=== PATIENT | female | born 1955 | race African-American/Black ===

== ENCOUNTER 2016-10-18 09:25 | Emergency (ER) | payer OTHER ==
[~2016-10-18] VITALS: Ht 157.5 cm; Wt 65.0 kg
[~2016-10-18 09:25] MED LIST: AMLODIPINE5 MG PO; ASPIRIN EC81 MG PO; CIPROFLOXACN500 MG PO; CLONIDINE0.1 MG PO; GLYNASE6 MG PO; HYDROCHLORO25 MG/TAB PO; LORTAB 10-325 M1 TAB PO; MAXZIDE-25MG1 COMBO PO; METFORMIN500 MG PO; METRONIDAZOL500 MG PO; NAPROSYN500 MG PO; NORCO1 TA1 PO; TOPROL XL100 MG PO; ULTRAM50 M1 PO; ZESTRIL/PRI20 MG/TAB PO; ZOFRAN ODT4 MG PO
[2016-10-18] MEDS ORDERED: PERCOCET 5/325M1 TAB PO (10:12)
[2016-10-18] MEDS ORDERED: INDOMETHACIN75 MG PO (10:12)
[2016-10-18] MEDS ORDERED: MITIGARE0.6 MG PO (10:12)
[2016-10-18 10:45] LABS: HEMATOCRIT 39.9 % (37.0-47.0); HEMOGLOBIN 14.6 g/dl (12.0-16.0); IMMATURE GRANULOCYTES 0.3 % (0.0-1.0); MEAN CELL VOLUME 81.9 fL CALC (80.0-100.0); MEAN CORPUSCULAR HGB CONC 36.6 g/L CALC (32.0-36.0); NEUT# 3.83 thou/uL (2.00-7.15); RED BLOOD COUNT 4.87 mill/uL (4.20-5.60); RED CELL DISTRI WIDTH 13.2 % (11.5-15.5)
[2016-10-18 10:48] LABS: ALBUMIN 4.4 g/dL (3.2-5.0); BILIRUBIN, TOTAL 0.6 mg/dL (0.0-1.4); CALCIUM 10.1 mg/dL (8.4-10.2); CREATININE 1.3 mg/dL (0.5-1.0); POTASSIUM 4.6 mmol/l (3.5-5.1)
[2016-10-18 12:04] VITALS: BP 105/57
== END 2016-10-18 12:25 | disposition home or self-care (01) | DRG 305 ==
LOC: ED 09:25
PROVIDERS: Emergency Medicine
DX: I10 Essential (primary) hypertension (principal); M10.072 Idiopathic gout, left ankle and foot; Z91.14 Patient's other noncompliance with medication regimen; R94.31 Abnormal electrocardiogram [ECG] [EKG]

== ENCOUNTER 2017-03-09 23:28 | Inpatient (IN) | payer OTHER ==
[~2017-03-09] VITALS: Ht 157.5 cm; Wt 70.0 kg
[~2017-03-09 23:28] MED LIST changes: +INDOMETHACIN75 MG PO; +MITIGARE0.6 MG PO; +PERCOCET 5/325M1 TAB PO
[2017-03-09 23:54] LABS: HEMATOCRIT 44.2 % (37.0-47.0); HEMOGLOBIN 15.8 g/dl (12.0-16.0); IMMATURE GRANULOCYTES 0.5 % (0.0-1.0); MEAN CELL VOLUME 82.2 fL CALC (80.0-100.0); MEAN CORPUSCULAR HGB 29.4 pG CALC (26.0-32.0); MEAN CORPUSCULAR HGB CONC 35.7 g/L CALC (32.0-36.0); NEUT# 11.01 thou/uL (2.00-7.15); RED BLOOD COUNT 5.38 mill/uL (4.20-5.60); RED CELL DISTRI WIDTH 14.3 % (11.5-15.5)
[2017-03-10] VITALS (26 sets, daily range): BP systolic 107–233; BP diastolic 64–130
[2017-03-10 00:24] LABS: URINE BILIRUBIN - DIPSTICK NEGATIVE (NEGATIVE); URINE BLOOD DIPSTICK SMALL (NEGATIVE); URINE CLARITY CLOUDY; URINE COLOR YELLOW; URINE GLUCOSE - DIPSTICK 100 mg/dL (NEGATIVE); URINE KETONE NEGATIVE (NEGATIVE); URINE LEUK ESTERASE NEGATIVE (NEGATIVE); URINE NITRITE - DIPSTICK NEGATIVE (Negative); URINE PH 6.5 (4.5-8.0); URINE PROTEIN - DIPSTICK >=300 mg/dL (NEG-TRACE); URINE SPECIFIC GRAVITY 1.025; URINE UROBILINOGEN - DIPSTICK 0.2 E.U./dL (0.2)
[2017-03-10 00:30] LABS: BARBITURATES NEGATIVE (NEGATIVE); COCAINE POSITIVE (NEGATIVE); METHADONE NEGATIVE (NEGATIVE); OXCYCODONE NEGATIVE (NEGATIVE); TETRAHYDROCANNABIONOL POSITIVE (NEGATIVE); TRICYLIC ANTIDEPRESSANTS NEGATIVE (NEGATIVE)
[2017-03-10 00:33] LABS: URINE BACTERIA FEW hpf; URINE COARSE GRANULAR CAST FEW lpf; URINE FINE GRAN CAST FEW lpf; URINE MUCUS FEW hpf (NONE-FEW); URINE SQUAMOUS EPITHELIAL CELL MODERATE EPI/hpf (0-FEW)
[2017-03-10 00:37] LABS: BILIRUBIN, TOTAL 0.8 mg/dL (0.0-1.4); CALCIUM 8.8 mg/dL (8.4-10.2); CREATININE 1.2 mg/dL (0.5-1.0); POTASSIUM 3.7 mmol/l (3.5-5.1); TOTAL PROTEIN 8.4 g/dL (6.3-8.2)
[2017-03-10 01:16] LABS: PROTHROMBIN TIME 10.7 SECONDS (9.0-12.5)
[2017-03-10 01:28] LABS: MAGNESIUM 1.9 mg/dL (1.6-2.3)
[2017-03-10 02:14] LABS: TSH, 3RD GENERATION 2.35 uIU/mL (0.47 - 4.68)
[2017-03-10 08:31] LABS: HEMATOCRIT 31.9 % (37.0-47.0); HEMOGLOBIN 11.6 g/dl (12.0-16.0); IMMATURE GRANULOCYTES 0.3 % (0.0-1.0); MEAN CELL VOLUME 80.2 fL CALC (80.0-100.0); MEAN CORPUSCULAR HGB 29.1 pG CALC (26.0-32.0); MEAN CORPUSCULAR HGB CONC 36.4 g/L CALC (32.0-36.0); NEUT# 10.32 thou/uL (2.00-7.15); RED BLOOD COUNT 3.98 mill/uL (4.20-5.60); RED CELL DISTRI WIDTH 13.4 % (11.5-15.5)
[2017-03-10 08:39] LABS: CALCIUM 8.4 mg/dL (8.4-10.2); CREATININE 1.4 mg/dL (0.5-1.0); POTASSIUM 3.8 mmol/l (3.5-5.1)
[2017-03-11] VITALS (42 sets, daily range): BP systolic 116–211; BP diastolic 61–112
[2017-03-11 05:50] LABS: HEMATOCRIT 32.2 % (37.0-47.0); HEMOGLOBIN 11.9 g/dl (12.0-16.0); IMMATURE GRANULOCYTES 0.3 % (0.0-1.0); MEAN CELL VOLUME 80.7 fL CALC (80.0-100.0); MEAN CORPUSCULAR HGB 29.8 pG CALC (26.0-32.0); NEUT# 8.78 thou/uL (2.00-7.15); RED BLOOD COUNT 3.99 mill/uL (4.20-5.60); RED CELL DISTRI WIDTH 13.7 % (11.5-15.5)
[2017-03-11 06:05] LABS: ALBUMIN 3.4 g/dL (3.2-5.0); BILIRUBIN, TOTAL 0.7 mg/dL (0.0-1.4); CALCIUM 9.1 mg/dL (8.4-10.2); POTASSIUM 3.8 mmol/l (3.5-5.1)
[2017-03-11 14:24] LABS: CALCIUM 8.8 mg/dL (8.4-10.2); CREATININE 1.8 mg/dL (0.5-1.0)
[2017-03-11 21:49] LABS: HEMATOCRIT 28.2 % (37.0-47.0); HEMOGLOBIN 10.2 g/dl (12.0-16.0); IMMATURE GRANULOCYTES 0.4 % (0.0-1.0); MEAN CELL VOLUME 81.7 fL CALC (80.0-100.0); MEAN CORPUSCULAR HGB 29.6 pG CALC (26.0-32.0); MEAN CORPUSCULAR HGB CONC 36.2 g/L CALC (32.0-36.0); NEUT# 5.97 thou/uL (2.00-7.15); RED BLOOD COUNT 3.45 mill/uL (4.20-5.60)
[2017-03-11 22:07] LABS: CALCIUM 8.6 mg/dL (8.4-10.2); CREATININE 1.7 mg/dL (0.5-1.0); POTASSIUM 3.6 mmol/l (3.5-5.1)
[2017-03-12] VITALS (77 sets, daily range): BP systolic 105–192; BP diastolic 7–94
[2017-03-12 06:39] LABS: HEMATOCRIT 27.7 % (37.0-47.0); IMMATURE GRANULOCYTES 0.4 % (0.0-1.0); MEAN CELL VOLUME 81.5 fL CALC (80.0-100.0); MEAN CORPUSCULAR HGB 29.4 pG CALC (26.0-32.0); MEAN CORPUSCULAR HGB CONC 36.1 g/L CALC (32.0-36.0); NEUT# 4.86 thou/uL (2.00-7.15); RED BLOOD COUNT 3.4 mill/uL (4.20-5.60); RED CELL DISTRI WIDTH 14.1 % (11.5-15.5)
[2017-03-12 06:51] LABS: CALCIUM 8.6 mg/dL (8.4-10.2); CREATININE 1.7 mg/dL (0.5-1.0); POTASSIUM 3.5 mmol/l (3.5-5.1)
[2017-03-13] VITALS (25 sets, daily range): BP systolic 88–198; BP diastolic 42–94
[2017-03-13 08:07] LABS: HEMATOCRIT 26.6 % (37.0-47.0); HEMOGLOBIN 9.8 g/dl (12.0-16.0); IMMATURE GRANULOCYTES 0.5 % (0.0-1.0); MEAN CELL VOLUME 80.6 fL CALC (80.0-100.0); MEAN CORPUSCULAR HGB 29.7 pG CALC (26.0-32.0); MEAN CORPUSCULAR HGB CONC 36.8 g/L CALC (32.0-36.0); NEUT# 5.85 thou/uL (2.00-7.15); RED BLOOD COUNT 3.3 mill/uL (4.20-5.60)
[2017-03-13 08:08] LABS: CALCIUM 8.7 mg/dL (8.4-10.2); CREATININE 1.6 mg/dL (0.5-1.0); MAGNESIUM 1.7 mg/dL (1.6-2.3); POTASSIUM 3.3 mmol/l (3.5-5.1)
[2017-03-13 22:59] LABS: C. DIFFICILE TOXIN A&B NEGATIVE (NEGATIVE)
[2017-03-14] VITALS (7 sets, daily range): BP systolic 143–208; BP diastolic 69–97
[2017-03-14 05:23] LABS: HEMATOCRIT 27.7 % (37.0-47.0); HEMOGLOBIN 9.9 g/dl (12.0-16.0); IMMATURE GRANULOCYTES 0.6 % (0.0-1.0); MEAN CORPUSCULAR HGB 28.9 pG CALC (26.0-32.0); MEAN CORPUSCULAR HGB CONC 35.7 g/L CALC (32.0-36.0); NEUT# 5.12 thou/uL (2.00-7.15); RED BLOOD COUNT 3.42 mill/uL (4.20-5.60); RED CELL DISTRI WIDTH 13.9 % (11.5-15.5)
[2017-03-14 05:44] LABS: CALCIUM 9.1 mg/dL (8.4-10.2); CREATININE 1.5 mg/dL (0.5-1.0); POTASSIUM 3.7 mmol/l (3.5-5.1)
[2017-03-15 00:25] VITALS: BP 189/90
[2017-03-15 00:43] VITALS: BP 157/82
[2017-03-15 05:24] LABS: HEMOGLOBIN 10.3 g/dl (12.0-16.0); IMMATURE GRANULOCYTES 0.8 % (0.0-1.0); MEAN CELL VOLUME 80.5 fL CALC (80.0-100.0); MEAN CORPUSCULAR HGB 29.6 pG CALC (26.0-32.0); MEAN CORPUSCULAR HGB CONC 36.8 g/L CALC (32.0-36.0); NEUT# 4.49 thou/uL (2.00-7.15); RED BLOOD COUNT 3.48 mill/uL (4.20-5.60)
[2017-03-15 05:42] LABS: CREATININE 1.3 mg/dL (0.5-1.0); MAGNESIUM 1.8 mg/dL (1.6-2.3); POTASSIUM 3.5 mmol/l (3.5-5.1)
[2017-03-15 09:17] VITALS: BP 180/74
[2017-03-15 11:17] LABS: CHOLESTEROL HDL RATIO 3.1 (<4.4 (CALC))
[2017-03-15 11:30] VITALS: BP 199/94
[2017-03-15 11:55] LABS: URINE BLOOD DIPSTICK LARGE (NEGATIVE); URINE GLUCOSE - DIPSTICK NEGATIVE (NEGATIVE); URINE KETONE TRACE mg/dL (NEGATIVE); URINE LEUK ESTERASE TRACE (NEGATIVE); URINE PROTEIN - DIPSTICK 100 mg/dL (NEG-TRACE); URINE SPECIFIC GRAVITY 1.025
[2017-03-15 12:02] LABS: URINE BILIRUBIN - DIPSTICK MODERATE (NEGATIVE); URINE CLARITY CLOUDY; URINE COLOR RED; URINE NITRITE - DIPSTICK POSITIVE (Negative)
[2017-03-15 12:04] LABS: URINE BACTERIA FEW hpf; URINE RBC TNTC RBC/hpf (0-5)
[2017-03-15 15:00] VITALS: BP 189/89
[2017-03-15 19:05] VITALS: BP 157/82
[2017-03-16] VITALS (7 sets, daily range): BP systolic 163–226; BP diastolic 82–99
[2017-03-16 07:07] LABS: HEMATOCRIT 27.3 % (37.0-47.0); HEMOGLOBIN 10.1 g/dl (12.0-16.0); IMMATURE GRANULOCYTES 0.7 % (0.0-1.0); MEAN CELL VOLUME 79.6 fL CALC (80.0-100.0); MEAN CORPUSCULAR HGB 29.4 pG CALC (26.0-32.0); NEUT# 4.67 thou/uL (2.00-7.15); RED BLOOD COUNT 3.43 mill/uL (4.20-5.60); RED CELL DISTRI WIDTH 13.9 % (11.5-15.5)
[2017-03-16 07:29] LABS: ANION GAP 17 (6-22 (CALC)); BUN 15 mg/dL (7-17); BUN/CREATININE RATIO 13 (12-20 (CALC)); CALCIUM 9.1 mg/dL (8.4-10.2); CARBON DIOXIDE 17 mmol/l (22-30); CHLORIDE 113 mmol/l (95-108); CREATININE 1.1 mg/dL (0.5-1.0); GFR 51 ML/MIN (>=60 (CALC)); GFR FOR AFR.AMER. > 60 ML/MIN (>=60 (CALC)); GLUCOSE 82 mg/dL (65-105); MAGNESIUM 1.7 mg/dL (1.6-2.3); POTASSIUM 3.7 mmol/l (3.5-5.1); SODIUM 143 mmol/l (137-146)
[2017-03-16] MEDS ORDERED: CLONIDINE0.1 MG PO (12:39)
[2017-03-16] MEDS ORDERED: LOPRESSOR 550 MG/TAB PO (12:39)
[2017-03-16] MEDS ORDERED: IPRATROPIU0.5 MG/3 M IN (12:39)
[2017-03-16] MEDS ORDERED: LISINOPRIL40 MG PO (12:39)
[2017-03-16] MEDS ORDERED: ASPIRINCHW 81MG PO (12:39)
[2017-03-16] MEDS ORDERED: LEVAQUIN750 MG PO (12:39)
[2017-03-16] MEDS ORDERED: AMLODIPINE BESYL5 MG PO (12:39)
[2017-03-16] MEDS ORDERED: ZYLOPRIM100 MG PO (12:41)
[2017-03-16] MEDS ORDERED: METFORMIN500 MG PO (12:41)
== END 2017-03-16 18:12 | disposition home or self-care (01) | DRG 208 ==
LOC: ED 23:29 → ED-I 23:30 → ED 23:30 → ED-I 03-10 00:30 → ED 03-10 01:02 → ICU 03-10 01:03 → MS2 03-10 01:03
PROVIDERS: Emergency Medicine; Nurse Practitioner Family; ADMIT Internal Medicine; ATTEND Internal Medicine
PROC: 0BH17EZ Insertion of Endotracheal Airway into Trachea, Via Natural or Artificial Opening (ICD-10-PCS; principal; 2017-03-10)
PROC: 5A1945Z Respiratory Ventilation, 24-96 Consecutive Hours (ICD-10-PCS; 2017-03-10)
PROC: 0T9B70Z Drainage of Bladder with Drainage Device, Via Natural or Artificial Opening (ICD-10-PCS; 2017-03-10)
DX: J18.9 Pneumonia, unspecified organism (principal); J96.01 Acute respiratory failure with hypoxia; N17.9 Acute kidney failure, unspecified; F10.188 Alcohol abuse with other alcohol-induced disorder; I16.0 Hypertensive urgency; I13.10 Hypertensive heart and chronic kidney disease without heart failure, with stage 1 through stage 4 chronic kidney disease, or unspecified chronic kidney disease; E11.22 Type 2 diabetes mellitus with diabetic chronic kidney disease; N18.3 Chronic kidney disease, stage 3 (moderate); I27.2 Other secondary pulmonary hypertension; F17.210 Nicotine dependence, cigarettes, uncomplicated; B19.20 Unspecified viral hepatitis C without hepatic coma; M10.9 Gout, unspecified; R74.8 Abnormal levels of other serum enzymes; F14.188 Cocaine abuse with other cocaine-induced disorder; F12.188 Cannabis abuse with other cannabis-induced disorder; Z91.19 Patient's noncompliance with other medical treatment and regimen; Z86.73 Personal history of transient ischemic attack (TIA), and cerebral infarction without residual deficits; Z79.4 Long term (current) use of insulin
CPT/HCPCS: J2060; J3370; S0164

== ENCOUNTER 2017-04-25 11:46 | Emergency (ER) | payer OTHER ==
[~2017-04-25] VITALS: Ht 157.5 cm; Wt 65.0 kg
[~2017-04-25 11:46] MED LIST changes: +AMLODIPINE BESYL5 MG PO; +ASPIRINCHW 81MG PO; +IPRATROPIU0.5 MG/3 M IN; +LEVAQUIN750 MG PO; +LISINOPRIL40 MG PO; +LOPRESSOR 550 MG/TAB PO; +ZYLOPRIM100 MG PO
[2017-04-25 12:58] LABS: ALBUMIN 4.9 g/dL (3.2-5.0); BILIRUBIN, TOTAL 0.7 mg/dL (0.0-1.4); CALCIUM 10.2 mg/dL (8.4-10.2); CREATININE 1.5 mg/dL (0.5-1.0); POTASSIUM 4.8 mmol/l (3.5-5.1); TOTAL PROTEIN 8.9 g/dL (6.3-8.2)
[2017-04-25] MEDS ORDERED: TORADOL PO (13:59)
[2017-04-25] MEDS ORDERED: RAYOS1 MG PO (13:59)
[2017-04-25 14:07] VITALS: BP 160/106
== END 2017-04-25 14:15 | disposition home or self-care (01) | DRG 556 ==
LOC: ED 11:46
PROVIDERS: Emergency Medicine
DX: M25.572 Pain in left ankle and joints of left foot (principal); M77.32 Calcaneal spur, left foot; M20.12 Hallux valgus (acquired), left foot; R22.42 Localized swelling, mass and lump, left lower limb

== ENCOUNTER 2017-10-04 14:37 | Emergency (ER) | payer OTHER ==
[~2017-10-04] VITALS: Ht 157.5 cm; Wt 63.6 kg
[~2017-10-04 14:37] MED LIST changes: +RAYOS1 MG PO; +TORADOL PO
[2017-10-04 15:41] LABS: IMMATURE GRANULOCYTES 0.2 % (0.0-1.0); MEAN CELL VOLUME 82.2 fL CALC (80.0-100.0); MEAN CORPUSCULAR HGB 29.7 pG CALC (26.0-32.0); MEAN CORPUSCULAR HGB CONC 36.1 g/L CALC (32.0-36.0); NEUT# 3.68 thou/uL (2.00-7.15); RED BLOOD COUNT 4.72 mill/uL (4.20-5.60); RED CELL DISTRI WIDTH 14.1 % (11.5-15.5)
[2017-10-04 15:48] LABS: HEMATOCRIT 38.8 % (37.0-47.0)
[2017-10-04 15:58] VITALS: BP 222/89
[2017-10-04 16:02] LABS: ALBUMIN 4.4 g/dL (3.2-5.0); BILIRUBIN, TOTAL 0.4 mg/dL (0.0-1.4); CREATININE 1.9 mg/dL (0.5-1.0); TOTAL PROTEIN 9.1 g/dL (6.3-8.2)
[2017-10-04 16:05] LABS: POTASSIUM 3.5 mmol/l (3.5-5.1)
[2017-10-04 16:06] LABS: D-DIMER 1.1 mg/L (0.19-0.60); PROTHROMBIN TIME 11.1 SECONDS (9.0-12.5)
== END 2017-10-04 16:06 | disposition short-term general hospital (02) | DRG 311 ==
LOC: ED 14:37
PROVIDERS: Family Medicine
DX: I20.0 Unstable angina (principal); F17.210 Nicotine dependence, cigarettes, uncomplicated; I10 Essential (primary) hypertension; R06.02 Shortness of breath; R11.0 Nausea; R07.9 Chest pain, unspecified

== ENCOUNTER 2017-10-11 08:02 | Emergency (ER) | payer OTHER ==
[~2017-10-11] VITALS: Ht 157.5 cm; Wt 70.0 kg
[2017-10-11 08:39] LABS: HEMATOCRIT 34.6 % (37.0-47.0); HEMOGLOBIN 12.3 g/dl (12.0-16.0); IMMATURE GRANULOCYTES 0.4 % (0.0-1.0); MEAN CORPUSCULAR HGB 28.8 pG CALC (26.0-32.0); MEAN CORPUSCULAR HGB CONC 35.5 g/L CALC (32.0-36.0); NEUT# 6.55 thou/uL (2.00-7.15); RED BLOOD COUNT 4.27 mill/uL (4.20-5.60); RED CELL DISTRI WIDTH 13.4 % (11.5-15.5)
[2017-10-11 08:57] LABS: ALBUMIN 3.9 g/dL (3.2-5.0); BILIRUBIN, TOTAL 0.4 mg/dL (0.0-1.4); CREATININE 2.3 mg/dL (0.5-1.0); POTASSIUM 4.4 mmol/l (3.5-5.1); TOTAL PROTEIN 8.2 g/dL (6.3-8.2)
[2017-10-11] MEDS ORDERED: NIFEDIPINE PO (09:43)
[2017-10-11] MEDS ORDERED: ISOSORB MONO30 MG PO (09:43)
[2017-10-11] MEDS ORDERED: ATORVASTATIN CA40 MG PO (09:44)
[2017-10-11] MEDS ORDERED: APRESOLINE25 MG/TAB PO (09:44)
[2017-10-11] MEDS ORDERED: PROTONIX40 M2 PO (09:45)
[2017-10-11] MEDS ORDERED: BRILINTA90 MG PO (09:45)
[2017-10-11] MEDS ORDERED: GLYBURID MCR6 MG PO (09:46)
[2017-10-11] MEDS ORDERED: METFORMIN500 MG PO (09:46)
[2017-10-11] MEDS ORDERED: METFORMIN HCL1000 MG PO (09:47)
[2017-10-11] MEDS ORDERED: CATAPRES0.2 MG PO (10:01)
[2017-10-11 11:15] VITALS: BP 195/86
== END 2017-10-11 11:15 | disposition home or self-care (01) | DRG 305 ==
LOC: ED 08:02
PROVIDERS: Family Medicine
DX: I10 Essential (primary) hypertension (principal); E11.9 Type 2 diabetes mellitus without complications; R04.0 Epistaxis; M10.9 Gout, unspecified; Z95.5 Presence of coronary angioplasty implant and graft

== ENCOUNTER 2017-10-19 18:39 | Emergency (ER) | payer OTHER ==
[~2017-10-19] VITALS: Ht 157.5 cm; Wt 60.9 kg
[~2017-10-19 18:39] MED LIST changes: +APRESOLINE25 MG/TAB PO; +ATORVASTATIN CA40 MG PO; +BRILINTA90 MG PO; +CATAPRES0.2 MG PO; +GLYBURID MCR6 MG PO; +ISOSORB MONO30 MG PO; +METFORMIN HCL1000 MG PO; +NIFEDIPINE PO; +PROTONIX40 M2 PO
[2017-10-19 19:28] LABS: IMMATURE GRANULOCYTES 0.7 % (0.0-1.0); MEAN CELL VOLUME 80.5 fL CALC (80.0-100.0); MEAN CORPUSCULAR HGB 29.1 pG CALC (26.0-32.0); MEAN CORPUSCULAR HGB CONC 36.1 g/L CALC (32.0-36.0); NEUT# 4.26 thou/uL (2.00-7.15); RED BLOOD COUNT 3.44 mill/uL (4.20-5.60); RED CELL DISTRI WIDTH 13.8 % (11.5-15.5)
[2017-10-19 19:36] LABS: HEMATOCRIT 27.7 % (37.0-47.0)
[2017-10-19 19:41] LABS: ALBUMIN 3.6 g/dL (3.2-5.0); BILIRUBIN, TOTAL 0.3 mg/dL (0.0-1.4); CREATININE 2.4 mg/dL (0.5-1.0); POTASSIUM 4.8 mmol/l (3.5-5.1); TOTAL PROTEIN 7.8 g/dL (6.3-8.2)
[2017-10-19 19:42] LABS: PROTHROMBIN TIME 11.4 SECONDS (9.0-12.5)
[2017-10-19 19:55] VITALS: BP 195/91
== END 2017-10-19 20:00 | disposition short-term general hospital (02) | DRG 301 ==
LOC: ED 18:39
PROVIDERS: Emergency Medicine
DX: I77.1 Stricture of artery (principal); I10 Essential (primary) hypertension; E11.9 Type 2 diabetes mellitus without complications; M10.9 Gout, unspecified

== ENCOUNTER 2017-11-04 10:02 | Emergency (ER) | payer OTHER ==
[~2017-11-04] VITALS: Ht 157.5 cm; Wt 68.2 kg
[2017-11-04 12:45] VITALS: BP 144/71
== END 2017-11-04 13:06 | disposition home or self-care (01) | DRG 556 ==
LOC: ED 10:02
DX: M79.605 Pain in left leg (principal); Z86.718 Personal history of other venous thrombosis and embolism; W17.89XA Other fall from one level to another, initial encounter; Y93.89 Activity, other specified; Y92.003 Bedroom of unspecified non-institutional (private) residence as the place of occurrence of the external cause

== ENCOUNTER 2017-12-21 21:01 | Emergency (ER) | payer OTHER ==
[~2017-12-21] VITALS: Ht 157.5 cm; Wt 70.0 kg
[2017-12-21] MEDS ORDERED: COREG25 MG PO (22:38)
[2017-12-21 22:51] LABS: IMMATURE GRANULOCYTES 0.5 % (0.0-1.0); MEAN CORPUSCULAR HGB 30.6 pG CALC (26.0-32.0); MEAN CORPUSCULAR HGB CONC 34.5 g/L CALC (32.0-36.0); NEUT# 5.32 thou/uL (2.00-7.15); RED BLOOD COUNT 1.96 mill/uL (4.20-5.60); RED CELL DISTRI WIDTH 14.2 % (11.5-15.5)
[2017-12-21 22:53] LABS: HEMATOCRIT 17.4 % (37.0-47.0); MEAN CELL VOLUME 88.8 fL CALC (80.0-100.0)
[2017-12-21 23:14] LABS: ALBUMIN 3.1 g/dL (3.2-5.0); BILIRUBIN, TOTAL 0.3 mg/dL (0.0-1.4); CREATININE 1.8 mg/dL (0.5-1.0); TOTAL PROTEIN 6.6 g/dL (6.3-8.2)
[2017-12-21 23:17] LABS: POTASSIUM 3.7 mmol/l (3.5-5.1)
[2017-12-22] MEDS ORDERED: ESCITALOPRAM OX10 MG PO (00:13)
[2017-12-22] MEDS ORDERED: LASIX 20 MG TAB20 MG PO (00:14)
[2017-12-22] MEDS ORDERED: NEURONTIN100 MG PO (00:14)
[2017-12-22] MEDS ORDERED: SODIUM BICARBI650 MG PO (00:15)
[2017-12-22] MEDS ORDERED: [UNRECOGNIZED DRUG - OTHER] PO (00:16)
[2017-12-22] MEDS ORDERED: EQ STOOL SOFTE100 MG PO (00:17)
[2017-12-22] MEDS ORDERED: NITROGLYCERIN0.4 MG SL (00:19)
[2017-12-22] MEDS ORDERED: OXYCODONE5 M1 PO (00:21)
[2017-12-22 02:22] VITALS: BP 170/77
== END 2017-12-22 02:19 | disposition short-term general hospital (02) | DRG 316 ==
LOC: ED 21:01
PROVIDERS: Emergency Medicine
DX: T82.898A Other specified complication of vascular prosthetic devices, implants and grafts, initial encounter (principal); I10 Essential (primary) hypertension; E11.9 Type 2 diabetes mellitus without complications; M10.9 Gout, unspecified; Y83.1 Surgical operation with implant of artificial internal device as the cause of abnormal reaction of the patient, or of later complication, without mention of misadventure at the time of the procedure

== ENCOUNTER 2017-12-26 02:52 | Emergency (ER) | payer OTHER ==
[~2017-12-26] VITALS: Ht 157.5 cm; Wt 54.0 kg
[~2017-12-26 02:52] MED LIST changes: +COREG25 MG PO; +EQ STOOL SOFTE100 MG PO; +ESCITALOPRAM OX10 MG PO; +LASIX 20 MG TAB20 MG PO; +NEURONTIN100 MG PO; +NITROGLYCERIN0.4 MG SL; +OXYCODONE5 M1 PO; +SODIUM BICARBI650 MG PO; +[UNRECOGNIZED DRUG - OTHER] PO
[2017-12-26 03:32] LABS: IMMATURE GRANULOCYTES 0.4 % (0.0-1.0); MEAN CORPUSCULAR HGB 31.1 pG CALC (26.0-32.0); MEAN CORPUSCULAR HGB CONC 34.5 g/L CALC (32.0-36.0); NEUT# 6.96 thou/uL (2.00-7.15); RED BLOOD COUNT 1.9 mill/uL (4.20-5.60); RED CELL DISTRI WIDTH 14.2 % (11.5-15.5)
[2017-12-26 03:38] LABS: ALBUMIN 3.2 g/dL (3.2-5.0); BILIRUBIN, TOTAL 0.3 mg/dL (0.0-1.4); CREATININE 1.7 mg/dL (0.5-1.0); POTASSIUM 4.1 mmol/l (3.5-5.1); TOTAL PROTEIN 6.9 g/dL (6.3-8.2)
[2017-12-26 03:41] LABS: HEMATOCRIT 17.1 % (37.0-47.0); HEMOGLOBIN 5.9 g/dl (12.0-16.0)
[2017-12-26 03:45] LABS: PROTHROMBIN TIME 11.5 SECONDS (9.0-12.5)
[2017-12-26 04:38] VITALS: BP 160/75
[2017-12-26 04:53] VITALS: BP 164/73
[2017-12-26 05:17] VITALS: BP 173/76
[2017-12-26 05:19] VITALS: BP 173/76
== END 2017-12-26 05:30 | disposition short-term general hospital (02) | DRG 379 ==
LOC: ED 02:52
PROVIDERS: Emergency Medicine
PROC: 30233N1 Transfusion of Nonautologous Red Blood Cells into Peripheral Vein, Percutaneous Approach (ICD-10-PCS; principal; 2017-12-26)
PROC: 30233N1 Transfusion of Nonautologous Red Blood Cells into Peripheral Vein, Percutaneous Approach (ICD-10-PCS; 2017-12-26)
DX: K62.5 Hemorrhage of anus and rectum (principal); I10 Essential (primary) hypertension; E11.9 Type 2 diabetes mellitus without complications; Z86.718 Personal history of other venous thrombosis and embolism; Z95.828 Presence of other vascular implants and grafts
CPT/HCPCS: P9016; S0164

== ENCOUNTER 2018-01-16 10:32 | Emergency (ER) | payer OTHER ==
[~2018-01-16] VITALS: Ht 157.5 cm; Wt 55.0 kg
[2018-01-16 11:19] LABS: HEMATOCRIT 31.8 % (37.0-47.0); HEMOGLOBIN 10.8 g/dl (12.0-16.0); IMMATURE GRANULOCYTES 0.3 % (0.0-5.0); MEAN CELL VOLUME 87.8 fL CALC (80.0-100.0); MEAN CORPUSCULAR HGB 29.8 pG CALC (26.0-32.0); NEUT# 10.5 thou/uL (2.00-7.15); RED BLOOD COUNT 3.62 mill/uL (4.20-5.60); RED CELL DISTRI WIDTH 13.7 % (11.5-15.5)
[2018-01-16 11:27] LABS: ALBUMIN 3.6 g/dL (3.2-5.0); BILIRUBIN, TOTAL 0.8 mg/dL (0.0-1.4); CREATININE 1.3 mg/dL (0.5-1.0); POTASSIUM 4.5 mmol/l (3.5-5.1)
[2018-01-16] MEDS ORDERED: GABAPENTIN100 MG PO (11:53)
[2018-01-16] MEDS ORDERED: FUROSEMIDE20 MG PO (11:54)
[2018-01-16] MEDS ORDERED: HYDRALAZINE25 MG PO (11:54)
[2018-01-16] MEDS ORDERED: TORADOL PO (12:30)
[2018-01-16] MEDS ORDERED: LEVAQUIN750 MG PO (12:30)
[2018-01-16] MEDS ORDERED: LABETALOL200 MG PO (13:27)
[2018-01-16 13:54] VITALS: BP 169/98
== END 2018-01-16 14:20 | disposition home or self-care (01) ==
LOC: ED 10:32
PROVIDERS: Family Medicine
DX: J18.9 Pneumonia, unspecified organism (principal); R09.1 Pleurisy; R06.02 Shortness of breath

== ENCOUNTER 2018-01-24 08:31 | Emergency (ER) | payer OTHER ==
[~2018-01-24] VITALS: Ht 157.5 cm; Wt 60.0 kg
[~2018-01-24 08:31] MED LIST changes: +FUROSEMIDE20 MG PO; +GABAPENTIN100 MG PO; +HYDRALAZINE25 MG PO; +LABETALOL200 MG PO
[2018-01-24 09:13] LABS: HEMATOCRIT 26.2 % (37.0-47.0); HEMOGLOBIN 8.9 g/dl (12.0-16.0); IMMATURE GRANULOCYTES 0.4 % (0.0-5.0); MEAN CELL VOLUME 88.8 fL CALC (80.0-100.0); MEAN CORPUSCULAR HGB 30.2 pG CALC (26.0-32.0); NEUT# 5.16 thou/uL (2.00-7.15); RED BLOOD COUNT 2.95 mill/uL (4.20-5.60); RED CELL DISTRI WIDTH 14.2 % (11.5-15.5)
[2018-01-24 09:29] LABS: ALBUMIN 3.9 g/dL (3.2-5.0); BILIRUBIN, TOTAL 0.8 mg/dL (0.0-1.4); CREATININE 1.4 mg/dL (0.5-1.0); POTASSIUM 4.6 mmol/l (3.5-5.1); TOTAL PROTEIN 8.6 g/dL (6.3-8.2)
[2018-01-24 09:30] LABS: D-DIMER 1.16 mg/L (0.19-0.60); PROTHROMBIN TIME 11.4 SECONDS (9.0-12.5)
[2018-01-24] MEDS ORDERED: ASPIRIN81 MG PO (11:48)
[2018-01-24] MEDS ORDERED: NIFEDIPINE60 MG PO (11:50)
[2018-01-24] MEDS ORDERED: CERTAVITE/ANTIOXIDAN (11:51)
[2018-01-24] MEDS ORDERED: ESCITALOPRAM OX10 MG PO (11:52)
[2018-01-24] MEDS ORDERED: FUROSEMIDE20 MG PO (11:52)
[2018-01-24] MEDS ORDERED: ATORVASTATIN CA80 MG PO (11:53)
[2018-01-24 12:01] VITALS: BP 203/89
== END 2018-01-24 12:01 | disposition short-term general hospital (02) ==
LOC: ED 08:31 → ED-I 10:22 → ED 12:01
PROVIDERS: Emergency Medicine
DX: I11.0 Hypertensive heart disease with heart failure (principal); N28.9 Disorder of kidney and ureter, unspecified; R06.02 Shortness of breath; D64.9 Anemia, unspecified; J90 Pleural effusion, not elsewhere classified; E11.9 Type 2 diabetes mellitus without complications

== ENCOUNTER 2018-03-05 08:40 | Inpatient (IN) | payer OTHER ==
[2018-03-05] VITALS (23 sets, daily range): BP systolic 159–229; BP diastolic 71–148
[~2018-03-05] VITALS: Ht 162.6 cm; Wt 64.0 kg
[~2018-03-05 08:40] MED LIST changes: +ASPIRIN81 MG PO; +ATORVASTATIN CA80 MG PO; +CERTAVITE/ANTIOXIDAN; +NIFEDIPINE60 MG PO
[2018-03-05 09:41] LABS: HEMATOCRIT 23.2 % (37.0-47.0); HEMOGLOBIN 7.9 g/dl (12.0-16.0); IMMATURE GRANULOCYTES 0.3 % (0.0-5.0); MEAN CELL VOLUME 87.9 fL CALC (80.0-100.0); MEAN CORPUSCULAR HGB 29.9 pG CALC (26.0-32.0); MEAN CORPUSCULAR HGB CONC 34.1 g/L CALC (32.0-36.0); NEUT# 4.28 thou/uL (2.00-7.15); RED BLOOD COUNT 2.64 mill/uL (4.20-5.60); RED CELL DISTRI WIDTH 14.4 % (11.5-15.5)
[2018-03-05 09:58] LABS: BILIRUBIN, TOTAL 0.6 mg/dL (0.0-1.4); POTASSIUM 4.5 mmol/l (3.5-5.1); TOTAL PROTEIN 8.1 g/dL (6.3-8.2)
[2018-03-05 19:39] LABS: URINE BILIRUBIN - DIPSTICK NEGATIVE (NEGATIVE); URINE BLOOD DIPSTICK NEGATIVE (NEGATIVE); URINE COLOR YELLOW; URINE GLUCOSE - DIPSTICK NEGATIVE (NEGATIVE); URINE KETONE NEGATIVE (NEGATIVE); URINE LEUK ESTERASE NEGATIVE (NEGATIVE); URINE NITRITE - DIPSTICK NEGATIVE (Negative); URINE PROTEIN - DIPSTICK 30 mg/dL (NEG-TRACE); URINE SPECIFIC GRAVITY 1.025; URINE UROBILINOGEN - DIPSTICK 0.2 E.U./dL (0.2)
[2018-03-05 19:46] LABS: URINE CLARITY CLEAR; URINE RBC 0-2 RBC/hpf (0-5)
[2018-03-05 19:47] LABS: URINE SQUAMOUS EPITHELIAL CELL FEW EPI/hpf (0-FEW); URINE WBC 0-2 WBC/hpf (0-5)
[2018-03-06] VITALS (16 sets, daily range): BP systolic 151–188; BP diastolic 59–87
[2018-03-06 06:08] LABS: HEMATOCRIT 20.3 % (37.0-47.0); HEMOGLOBIN 7.2 g/dl (12.0-16.0); IMMATURE GRANULOCYTES 0.5 % (0.0-5.0); MEAN CELL VOLUME 83.9 fL CALC (80.0-100.0); MEAN CORPUSCULAR HGB 29.8 pG CALC (26.0-32.0); MEAN CORPUSCULAR HGB CONC 35.5 g/L CALC (32.0-36.0); NEUT# 4.54 thou/uL (2.00-7.15); RED BLOOD COUNT 2.42 mill/uL (4.20-5.60)
[2018-03-06 06:19] LABS: ALBUMIN 3.4 g/dL (3.2-5.0); BILIRUBIN, TOTAL 0.3 mg/dL (0.0-1.4); CREATININE 1.8 mg/dL (0.5-1.0); MAGNESIUM 1.7 mg/dL (1.6-2.3); POTASSIUM 4.3 mmol/l (3.5-5.1)
== END 2018-03-06 16:05 | disposition left against medical advice (07) | DRG 304 ==
LOC: ED 08:40 → ED-I 11:21 → ED 12:19 → ICU 12:20
PROVIDERS: Emergency Medicine; ADMIT Internal Medicine Nephrology; ATTEND Internal Medicine Nephrology
DX: I16.1 Hypertensive emergency (principal); J18.9 Pneumonia, unspecified organism; J44.0 Chronic obstructive pulmonary disease with (acute) lower respiratory infection; N17.9 Acute kidney failure, unspecified; I12.9 Hypertensive chronic kidney disease with stage 1 through stage 4 chronic kidney disease, or unspecified chronic kidney disease; E11.22 Type 2 diabetes mellitus with diabetic chronic kidney disease; I70.1 Atherosclerosis of renal artery; N18.3 Chronic kidney disease, stage 3 (moderate); D64.9 Anemia, unspecified; E11.42 Type 2 diabetes mellitus with diabetic polyneuropathy; E11.51 Type 2 diabetes mellitus with diabetic peripheral angiopathy without gangrene; E78.5 Hyperlipidemia, unspecified; F17.210 Nicotine dependence, cigarettes, uncomplicated; M10.9 Gout, unspecified; B19.20 Unspecified viral hepatitis C without hepatic coma; Z95.828 Presence of other vascular implants and grafts; Z91.14 Patient's other noncompliance with medication regimen
CPT/HCPCS: J1650; J3370; S0164

== ENCOUNTER 2018-03-06 19:48 | Emergency (ER) | payer OTHER ==
[~2018-03-06] VITALS: Ht 162.6 cm; Wt 68.1 kg
[2018-03-06 20:27] LABS: HEMATOCRIT 21.2 % (37.0-47.0); HEMOGLOBIN 7.4 g/dl (12.0-16.0); IMMATURE GRANULOCYTES 0.4 % (0.0-5.0); MEAN CELL VOLUME 83.8 fL CALC (80.0-100.0); MEAN CORPUSCULAR HGB 29.2 pG CALC (26.0-32.0); MEAN CORPUSCULAR HGB CONC 34.9 g/L CALC (32.0-36.0); NEUT# 8.46 thou/uL (2.00-7.15); RED BLOOD COUNT 2.53 mill/uL (4.20-5.60); RED CELL DISTRI WIDTH 14.3 % (11.5-15.5)
[2018-03-06 20:51] LABS: INTERNATIONAL NORMALIZED RATIO 1.1 RATIO (0.7-1.3)
[2018-03-06 20:52] LABS: ALBUMIN 3.9 g/dL (3.2-5.0); BILIRUBIN, TOTAL 0.3 mg/dL (0.0-1.4); CREATININE 1.7 mg/dL (0.5-1.0); TOTAL PROTEIN 8.1 g/dL (6.3-8.2)
[2018-03-06 21:24] LABS: URINE BILIRUBIN - DIPSTICK NEGATIVE (NEGATIVE); URINE BLOOD DIPSTICK TRACE-LYSED (NEGATIVE); URINE COLOR YELLOW; URINE GLUCOSE - DIPSTICK NEGATIVE (NEGATIVE); URINE KETONE NEGATIVE (NEGATIVE); URINE LEUK ESTERASE NEGATIVE (NEGATIVE); URINE NITRITE - DIPSTICK NEGATIVE (Negative); URINE PROTEIN - DIPSTICK 100 mg/dL (NEG-TRACE); URINE SPECIFIC GRAVITY 1.025; URINE UROBILINOGEN - DIPSTICK 0.2 E.U./dL (0.2)
[2018-03-06 21:27] LABS: URINE CLARITY CLEAR; URINE SQUAMOUS EPITHELIAL CELL FEW EPI/hpf (0-FEW); URINE WBC 0-2 WBC/hpf (0-5)
[2018-03-06 21:28] LABS: BARBITURATES NEGATIVE (NEGATIVE); COCAINE NEGATIVE (NEGATIVE); METHADONE NEGATIVE (NEGATIVE); OXCYCODONE NEGATIVE (NEGATIVE); TETRAHYDROCANNABIONOL NEGATIVE (NEGATIVE); TRICYLIC ANTIDEPRESSANTS NEGATIVE (NEGATIVE)
[2018-03-07 01:14] VITALS: BP 181/75
== END 2018-03-07 01:00 | disposition short-term general hospital (02) ==
LOC: ED 19:48
PROVIDERS: Emergency Medicine
DX: J18.9 Pneumonia, unspecified organism (principal); J44.0 Chronic obstructive pulmonary disease with (acute) lower respiratory infection; J44.1 Chronic obstructive pulmonary disease with (acute) exacerbation; D64.9 Anemia, unspecified; E87.2 Acidosis; I10 Essential (primary) hypertension; E11.9 Type 2 diabetes mellitus without complications; M10.9 Gout, unspecified; F17.210 Nicotine dependence, cigarettes, uncomplicated; Z95.5 Presence of coronary angioplasty implant and graft; Z95.828 Presence of other vascular implants and grafts; R06.02 Shortness of breath

== ENCOUNTER 2018-06-24 23:37 | Emergency (ER) | payer OTHER ==
[~2018-06-24] VITALS: Ht 162.6 cm; Wt 68.1 kg
[2018-06-25 00:46] LABS: HEMATOCRIT 20.8 % (37.0-47.0); HEMOGLOBIN 7.3 g/dl (12.0-16.0); IMMATURE GRANULOCYTES 0.5 % (0.0-5.0); MEAN CELL VOLUME 85.2 fL CALC (80.0-100.0); MEAN CORPUSCULAR HGB 29.9 pG CALC (26.0-32.0); MEAN CORPUSCULAR HGB CONC 35.1 g/L CALC (32.0-36.0); NEUT# 2.64 thou/uL (2.00-7.15); RED BLOOD COUNT 2.44 mill/uL (4.20-5.60); RED CELL DISTRI WIDTH 13.8 % (11.5-15.5)
[2018-06-25 01:03] LABS: ALBUMIN 4.3 g/dL (3.2-5.0); BILIRUBIN, TOTAL 0.3 mg/dL (0.0-1.4); CREATININE 2.3 mg/dL (0.5-1.0); TOTAL PROTEIN 8.6 g/dL (6.3-8.2)
[2018-06-25 03:09] LABS: URINE BILIRUBIN - DIPSTICK NEGATIVE (NEGATIVE); URINE BLOOD DIPSTICK TRACE-INTACT (NEGATIVE); URINE COLOR YELLOW; URINE GLUCOSE - DIPSTICK NEGATIVE (NEGATIVE); URINE KETONE NEGATIVE (NEGATIVE); URINE LEUK ESTERASE NEGATIVE (NEGATIVE); URINE NITRITE - DIPSTICK NEGATIVE (Negative); URINE PROTEIN - DIPSTICK 100 mg/dL (NEG-TRACE); URINE UROBILINOGEN - DIPSTICK 0.2 E.U./dL (0.2)
[2018-06-25 03:49] LABS: URINE WBC 0-2 WBC/hpf (0-5)
[2018-06-25 03:50] LABS: URINE BACTERIA MODERATE hpf; URINE EPITHELIAL CELLS RARE EPI/hpf (0-FEW)
[2018-06-25 04:38] VITALS: BP 201/87
== END 2018-06-25 04:37 | disposition short-term general hospital (02) ==
LOC: ED 23:37 → ED-I 06-25 02:19 → ED 06-25 04:37
PROVIDERS: Emergency Medicine
DX: K92.2 Gastrointestinal hemorrhage, unspecified (principal); I16.0 Hypertensive urgency; N19 Unspecified kidney failure; D64.9 Anemia, unspecified; R53.1 Weakness; R51 Headache; R42 Dizziness and giddiness; R94.31 Abnormal electrocardiogram [ECG] [EKG]; E11.9 Type 2 diabetes mellitus without complications; Z95.5 Presence of coronary angioplasty implant and graft; Z72.0 Tobacco use

== ENCOUNTER 2018-07-29 10:03 | Inpatient (IN) | payer OTHER ==
[2018-07-29] VITALS (25 sets, daily range): BP systolic 169–220; BP diastolic 66–94
[~2018-07-29] VITALS: Ht 165.1 cm; Wt 59.6 kg
--- NOTE | 2018-07-29 10:04 | NUR ---
TO ROOM 9
--- NOTE | 2018-07-29 10:49 | NUR ---
IV LABETOLOL PUSH FOR ELEVATED MANUAL BP 220/130 PER MD ORDER.
[2018-07-29 10:59] LABS: IMMATURE GRANULOCYTES 0.4 % (0.0-5.0); MEAN CELL VOLUME 85.6 fL CALC (80.0-100.0); MEAN CORPUSCULAR HGB CONC 35.1 g/L CALC (32.0-36.0); NEUT# 5.2 thou/uL (2.00-7.15); RED BLOOD COUNT 3.4 mill/uL (4.20-5.60); RED CELL DISTRI WIDTH 13.6 % (11.5-15.5)
[2018-07-29 11:00] LABS: HEMATOCRIT 29.1 % (37.0-47.0); HEMOGLOBIN 10.2 g/dl (12.0-16.0)
[2018-07-29 11:19] LABS: ALBUMIN 4.4 g/dL (3.2-5.0); BILIRUBIN, TOTAL 0.3 mg/dL (0.0-1.4); CREATININE 2.3 mg/dL (0.5-1.0); POTASSIUM 4.3 mmol/l (3.5-5.1); TOTAL PROTEIN 8.9 g/dL (6.3-8.2)
--- NOTE | 2018-07-29 11:38 | NUR ---
GUY BARON INITIATED PER MD ORDER FOR CONTINUED ELEVATED BP
--- NOTE | 2018-07-29 12:37 | NUR ---
RECVD REPORT FROM ROYAL CLARKE IN THE ER. SHE WILL TRY TO CONTACT FAMILY FOR HOME MEDS & PLACED CONSULT FOR MED REC.
--- NOTE | 2018-07-29 12:38 | NUR ---
REPORT PROVIDED TO ROYAL LOZA, ICU. PT TO ICU ON CARDENE DRIP AND LAMP DECORATOR IN STABLE CONDITION. IV SITE HEALTHY.
--- NOTE | 2018-07-29 12:49 | NUR ---
PT ARRIVED TO ICU 4 FROM ER, IN STABLE CONDITION, BY STRETCHER WITH CARDENE RUNNING. PT ABLE TO TRANSFER TO NEW BED, WITH MINIMAL ASSISTANCE. PT HAS MANY REQUESTS UPON ARRIVAL. PT STATES SHE "WANTS THE 2 BLACK GIRLS WHO WORK HERE TO TAKE CARE OF HER".
--- NOTE | 2018-07-29 13:00 | NUR ---
PT C/O LLQ ABD PAIN x3 HOURS. DENIES CP. DENIES SOB. BREATHING IS EVEN/UNLABORED, LUNG SOUNDS CLEAR. STRONG PULSES x4. DELANEY. NO EDEMA. NSR ON TELE. SKIN WARM/DRY. PT DENIES WOUNDS. ABD SOFT/TENDER, NO GAURDING OR FACIAL CHANGES WITH PALPATION. STATES "NORMAL" BM THIS AM, DENIES NEEDING LAXATIVES AT HOME. STATES SHE HAD A DRINK LAST NIGHT FOR THE GAME. ADMITS TO OCCASSIONAL MARIJUANA AND TOBACCO PRODUCTS. DENIES N/V/D. PT CAME TO ER FOR CP x3 DAYS BUT STATES THE PAIN MOVED TO HER LLQ ABD WHILE HERE. PT STATES SHE TAKES TRAMADOL AT HOME FOR PAIN AND USES GABAPENTIN FOR PAIN TO FOOT. PT LIVES WITH HER DAUGHTER & FEELS SAFE. PT IS TRANSPORTED, DOES NOT DRIVE. PT STATES SHE WAS IN [facility] RECENTLY FOR GI BLEED AND HAS NOT TAKEN HER MEDICINE SINCE LEAVING. PT ALSO STATES SHE DOES NOT KNOW WHAT MEDCINE SHE IS SUPPOSED TO TAKE. PT STATES SHE FEEL x1 A COUPLE WEEKS AGO, BUT THAT WAS BC THE MARIJUANA MADE HER DIZZY. STATES SHE IS SUPPOSED TO USE A CANE TO WALK BUT SHE DOESNT. DENIES TAKING PAIN MEDS FOR CP. PT STATES [facility] CALLED IN HER MEDICINES FOR REFILLS THIS AM. PT ADMITS TO BEING DEPRESSED BUT DENIES WANTING TO HURT HERSELF OR OTHERS. PT CONTINUES TO MAKE FREQUENT REQUESTS.
--- NOTE | 2018-07-29 13:06 | NUR ---
PT ARRIVED TO ICU 4 FROM ER, IN STABLE CONDITION, BY STRETCHER WITH CARDENE RUNNING. PT ABLE TO TRANSFER TO NEW BED, WITH MINIMAL ASSISTANCE. PT HAS MANY REQUESTS UPON ARRIVAL.
--- NOTE | 2018-07-29 13:59 | NUR ---
PHARMACY @BEDSIDE FOR MED REC
[2018-07-29] MEDS ORDERED: LISINOPRIL40 MG PO (14:18)
[2018-07-29] MEDS ORDERED: ISOSORB MONO20 MG PO (14:20)
[2018-07-29] MEDS ORDERED: ULTRAM50 M1 PO (14:21)
[2018-07-29] MEDS ORDERED: PROTONIX40 M2 PO (14:22)
[2018-07-29] MEDS ORDERED: NIFEDIPINE ER60 M1 PO (14:22)
[2018-07-29] MEDS ORDERED: BRILINTA60 MG PO (14:23)
--- NOTE | 2018-07-29 14:23 | NUR ---
ASSISTED PT UP TO BSC FOR URINATION. 100cc CLEAR YELLOW OUTPUT CHARTED.
[2018-07-29] MEDS ORDERED: HYDRALAZINE50 MG PO (14:29)
[2018-07-29] MEDS ORDERED: NEURONTIN100 MG PO (15:14)
[2018-07-29] MEDS ORDERED: COREG25 MG PO (15:21)
--- NOTE | 2018-07-29 15:23 | NUR ---
Attempted to get home medication list from patient; however she was not able to recall all of her medications. I was able to obtain her home medications from her pharmacy which is [facility] in [place]. Alyssa the pharmacy grad intern verbally gave me her medications that the patient fills there. The patient's PCP is Dr. Blanc the [facility] here in [facility].
--- NOTE | 2018-07-29 15:29 | NUR ---
CARDENE INCREASED TO 10MG/HR DUE TO RISING BP. PT AWOKE I ENTERED, I EXPLAINED THAT I WAS INCREASING MEDICINE. PT ASKED WHY HER BLOOD PRESSURE IS GOING UP AGAIN BC "SHE TAKES HER MEDICATION EVERY NIGHT".
--- NOTE | 2018-07-29 15:53 | NUR ---
ASSISTED PT TO BSC FOR URINATION. CALLBELL W/IN REACH. PT AWAKE, WATCHING TV.
--- NOTE | 2018-07-29 17:21 | NUR ---
DR COHEN @BEDSIDE WITH PT, ASSESSING & DISCUSSING POC.
--- NOTE | 2018-07-29 17:37 | NUR ---
PT SITTING UP IN BED, EATING DINNER, AFTER BEING ASSISTED UP TO BSC FOR URINATION. NO C/O PAIN.
--- NOTE | 2018-07-29 17:43 | NUR ---
PT STATES SHE DOESNT LIKE DINNER, "SAME CRAP THEY KEPT GIVING ME AT [facility]". PT REQUEST TO USE UNIT CORDLESS PHONE BUT WE CAN NOT FIND IT AT THIS TIME.
--- NOTE | 2018-07-29 17:47 | NUR ---
UA CUP IN ROOM FOR COLLECTION.
--- NOTE | 2018-07-29 18:00 | NUR ---
PT SITTING UP IN BED TALKING WITH VISITOR. PT IS ALERT AND ORIENTED X3. SHIFT ASSESSMENT COMPLETED AT THIS TIME. IV PATENT X1. CARDENE INFUSING PER TITRATION CHARTING. PT WITH COMPLAINTS OF LEFT UPPER QUADRANT ABDOMINAL PAIN. PT REPRTS THAT IT IS STABBING AND NOT RELIEVED BY ANYTHING AND IS REQUESTING PAIN MEDICATION. DR COHEN NOTIFIED AND NEW ORDERS RECEIVED. CALL LIGHT IN REACH. WILL CONTINUE TO MONITOR.
--- NOTE | 2018-07-29 20:30 | NUR ---
PT ASSISTED TO BSC TO VOID. URINE SPECIMEN OBTAINED AND SENT TO LAB. PT ASSISTED BACK TO BED.
--- NOTE | 2018-07-29 21:00 | NUR ---
HS MEDS GIVEN PER MAR. PT TOLERATED WELL.
[2018-07-29 21:09] LABS: URINE BILIRUBIN - DIPSTICK NEGATIVE (NEGATIVE); URINE BLOOD DIPSTICK NEGATIVE (NEGATIVE); URINE COLOR YELLOW; URINE GLUCOSE - DIPSTICK NEGATIVE (NEGATIVE); URINE KETONE NEGATIVE (NEGATIVE); URINE LEUK ESTERASE NEGATIVE (NEGATIVE); URINE NITRITE - DIPSTICK NEGATIVE (Negative); URINE PROTEIN - DIPSTICK 100 mg/dL (NEG-TRACE); URINE UROBILINOGEN - DIPSTICK 0.2 E.U./dL (0.2)
--- NOTE | 2018-07-29 21:30 | NUR ---
PT ASSISTED TO BSC TO VOID AND ASSISTED BACK TO BED. PT TOLERATED WELL
[2018-07-29 21:33] LABS: URINE BACTERIA FEW hpf; URINE SQUAMOUS EPITHELIAL CELL RARE EPI/hpf (0-FEW)
--- NOTE | 2018-07-29 22:00 | NUR ---
PT REQUESTING TUMS AT THIS TIME FOR HEART BURN. EXPLAINED TO PT THAT SHE HAD REQUESTED PAIN MEDICATION PREVIOUSLY AND WAS PROVIDED MEDICATION VIA IV. PT THEN REQUESTED A SODA. SODA PROVIDED. CALL LIGHT IN REACH. WILL CONTINUE TO MONITOR.
[2018-07-30] VITALS (12 sets, daily range): BP systolic 167–201; BP diastolic 71–98
--- NOTE | 2018-07-30 | NUR ---
PT ASSISTED TO BSC THEN BACK TO BED. PT TOLERATED WELL. CALL LIGHT IN REACH. WILL CONTINUE TO MONITOR
--- NOTE | 2018-07-30 01:27 | NUR ---
PT RESTING IN BED WITH EYES CLOSED. AT THIS TIME. RESP ARE EVEN AND UNLABORED. NO DISTRESS NOTED. CALL LIGHT IN REACH. WILL CONTINUE TO MONITOR
--- NOTE | 2018-07-30 02:50 | NUR ---
PT ASSISTED TO BSC TO VOID AND THEN ASSISTED BACK TO BED. PT TOLERATED WELL.
--- NOTE | 2018-07-30 04:24 | NUR ---
PT RESTING IN BED WITH EYES CLOSED. RESP ARE EVEN AND UNLABORED. NO DISTRESS NOTED. CALL LIGHT IN REACH. WILL CONTINUE TO MONITOR.
--- NOTE | 2018-07-30 05:00 | NUR ---
PT ASSITED TO BSC TO VOID. PT THEN ASSISTED BACK TO BED. CALL LIGHT IN REACH. WILL CONTINUE TO [facility].
[2018-07-30 05:42] LABS: HEMATOCRIT 27.3 % (37.0-47.0); HEMOGLOBIN 9.5 g/dl (12.0-16.0); IMMATURE GRANULOCYTES 0.5 % (0.0-5.0); MEAN CELL VOLUME 84.5 fL CALC (80.0-100.0); MEAN CORPUSCULAR HGB 29.4 pG CALC (26.0-32.0); MEAN CORPUSCULAR HGB CONC 34.8 g/L CALC (32.0-36.0); NEUT# 4.84 thou/uL (2.00-7.15); RED BLOOD COUNT 3.23 mill/uL (4.20-5.60); RED CELL DISTRI WIDTH 13.5 % (11.5-15.5)
[2018-07-30 05:51] LABS: ALBUMIN 3.7 g/dL (3.2-5.0); BILIRUBIN, TOTAL 0.3 mg/dL (0.0-1.4); CREATININE 1.9 mg/dL (0.5-1.0); POTASSIUM 4.2 mmol/l (3.5-5.1); TOTAL PROTEIN 7.6 g/dL (6.3-8.2)
--- NOTE | 2018-07-30 06:10 | NUR ---
PT ASSISTED TO BSC TO VOID. PT ASSISTED BACK TO BED. CALL LIGHT IN REACH. WILL CONTINUE TO MONITOR
--- NOTE | 2018-07-30 06:47 | NUR ---
REPORT RECVD FROM ROYAL JONES AT START OF SHIFT. TEST RESULTS REVIEWED.
--- NOTE | 2018-07-30 07:30 | NUR ---
REMINDED PT HOW TO USE BED CONTROLS, ALLOWED PT TO REPOSITION SELF. PT SITTING UP IN BED, EATING BREAKFAST.
--- NOTE | 2018-07-30 08:28 | NUR ---
PT ASSISTED UP TO BSC FOR URINATION & MB.
--- NOTE | 2018-07-30 08:52 | NUR ---
PT RESTING IN BED, EYES CLOSED. NO S/S OF DISTRESS. CALLBELL W/IN REACH. WILL CONTINUE TO MONITOR.
--- NOTE | 2018-07-30 09:04 | NUR ---
PT MEDICATED WITH PO BP MEDS. PT ASKING ABOUT SIGNING OUT AMA. STATES "SHE'LL JUST GO TO [facility] AND GET HER MEDS." ASKED HER TO WAIT UNTIL MD ROUNDS THIS AM.
--- NOTE | 2018-07-30 09:09 | NUR ---
CALLED DR COHEN TO INFORM HIM OF PTS WISHES. HE REQUEST PT WAIT UNTIL HE DOES ROUNDS.
--- NOTE | 2018-07-30 09:45 | NUR ---
DR COHEN IN HOSPITAL, CALLED TO SEE IF PT HAS LEFT YET.
--- NOTE | 2018-07-30 11:01 | NUR ---
BAG OF CARDENE COMPLETED. BP 193/85. WILL WAIT UNTIL PT SPEAKS WITH DR COHEN BEFORE MIXING ANOTHER BAG D/T PT STATING SHE WANTS TO LEAVE.
--- NOTE | 2018-07-30 11:28 | NUR ---
DR COHEN @BEDSIDE.
--- NOTE | 2018-07-30 11:33 | NUR ---
PER DR COHEN, HE RECOMMENDS PT TO STAY BUT PT STILL WANTS TO LEAVE AMA.
--- NOTE | 2018-07-30 11:41 | NUR ---
#20 IV IN LAC DC'D, TIP INTACT, DRESSING APPLIED. PT DISCONNECTED FROM MONITORS. SISTER @BEDSIDE. PT/SISTER AWARE PT IS LEAVING AGAINST MEDICAL ADVICE. PT STATES SHE CANT STAY IN THAT TINY ROOM. STATES SHE WILL GO TO [facility] TO PIPELINE DISPATCH OPERATOR HER MEDICINE. SISTER SAYS SHE CAN GO TO HER KIDNEY DR ([facility]DR[facility]). PT GIVEN HOSPITAL "PANTIES". AUX CALLED FOR WC DOWNSTAIRS. PT SIGNED AMA PAPERWORK. LAST V/S: HR 74, BP 201/98, O2 99% RA, RR 30
--- NOTE | 2018-07-30 11:51 | NUR ---
PT OUT THE DOOR WITH SISTER & VOLUNTEER IN STABLE CONDITION. PT SMILING, THANKING STAFF.
== END 2018-07-30 11:51 | disposition left against medical advice (07) | DRG 305 ==
LOC: ED 10:03 → ED-I 11:52 → ED 12:13 → ICU 12:14
PROVIDERS: Emergency Medicine; ADMIT Internal Medicine Nephrology; ATTEND Internal Medicine Nephrology
DX: I16.1 Hypertensive emergency (principal); I10 Essential (primary) hypertension; I70.1 Atherosclerosis of renal artery; J44.9 Chronic obstructive pulmonary disease, unspecified; E11.51 Type 2 diabetes mellitus with diabetic peripheral angiopathy without gangrene; I25.10 Atherosclerotic heart disease of native coronary artery without angina pectoris; E78.5 Hyperlipidemia, unspecified; B19.20 Unspecified viral hepatitis C without hepatic coma; M10.9 Gout, unspecified; F14.10 Cocaine abuse, uncomplicated; F12.10 Cannabis abuse, uncomplicated; F41.1 Generalized anxiety disorder; T46.5X6A Underdosing of other antihypertensive drugs, initial encounter; F17.210 Nicotine dependence, cigarettes, uncomplicated; Z91.128 Patient's intentional underdosing of medication regimen for other reason; Z95.5 Presence of coronary angioplasty implant and graft; Z95.2 Presence of prosthetic heart valve

== ENCOUNTER 2018-09-16 11:48 | Inpatient (IN) | payer OTHER ==
[~2018-09-16] VITALS: Ht 165.1 cm; Wt 64.0 kg
[~2018-09-16 11:48] MED LIST changes: +BRILINTA60 MG PO; +HYDRALAZINE50 MG PO; +ISOSORB MONO20 MG PO; +NIFEDIPINE ER60 M1 PO
--- NOTE | 2018-09-16 12:00 | NUR ---
PT TO ROOM VIA WHEELCHAIR.
[2018-09-16 13:01] LABS: HEMATOCRIT 28.7 % (37.0-47.0); HEMOGLOBIN 9.8 g/dl (12.0-16.0); IMMATURE GRANULOCYTES 0.4 % (0.0-5.0); MEAN CELL VOLUME 83.2 fL CALC (80.0-100.0); MEAN CORPUSCULAR HGB 28.4 pG CALC (26.0-32.0); MEAN CORPUSCULAR HGB CONC 34.1 g/L CALC (32.0-36.0); NEUT# 5.4 thou/uL (2.00-7.15); RED BLOOD COUNT 3.45 mill/uL (4.20-5.60); RED CELL DISTRI WIDTH 15.6 % (11.5-15.5)
--- NOTE | 2018-09-16 13:04 | NUR ---
PT STAATES PAIN IS STILL THERE, NOTIFIED, NO NEW ORDERS GIVEN
--- NOTE | 2018-09-16 14:02 | NUR ---
UNABLE TO VERIFY MEDICATIONS WITH PT, PHARMACY CONSULT PLACED. PT UP TO BEDSIDE COMMODE. PT STATES VERY PAINFUL STILL IN RIB AREA.
[2018-09-16 14:04] LABS: BILIRUBIN, TOTAL 0.4 mg/dL (0.0-1.4)
[2018-09-16 14:08] LABS: ALBUMIN 4.5 g/dL (3.2-5.0); CREATININE 3.6 mg/dL (0.5-1.0); TOTAL PROTEIN 9.3 g/dL (6.3-8.2)
[2018-09-16 14:09] LABS: POTASSIUM 6.1 mmol/l (3.5-5.1)
--- NOTE | 2018-09-16 15:04 | NUR ---
PT RESTING COMFORTABLY ON STRETCHER, FLUIDS INFUSING, WARM BLANKETS GIVEN, PT STATES STILL HURTS TO MOVE. NOTIFIED. CALL LIGHT WITHIN REACH
--- NOTE | 2018-09-16 15:30 | NUR ---
PT URINATED IN BED, BED CHANGED AND NEW GOWN PLACED ON PT.
--- NOTE | 2018-09-16 16:20 | NUR ---
PT TAKEN TO CT. SCAN PER STRETCHER FOR ADMISSION ORDERS.
--- NOTE | 2018-09-16 16:45 | NUR ---
TRIED TO CALL REPORT, NURSE UNAVAILABLE AT THIS TIME
--- NOTE | 2018-09-16 17:06 | NUR ---
REPORT GIVEN TO MIKAEL PAIGE FOR CONTINUATION OF CARE
--- NOTE | 2018-09-16 17:11 | NUR ---
PT ARRIVED ON FLOOR VIA STRETCHER; AMBULATE TO DIGITAL SCALE WITH SLOW GAIT, ASSIST X2; WT AND VITALS OBTAINED; RESP EVEN AND UNLABORED ON ROOM AIR; TELE IN PLACE, READING SR 78 ON MONITOR; ORIENT TO ROOM AND CALL MACHADO SYSTEM; SAFETY PRECAUTION REINFORCE; PT NOW EATING SUPPER.
--- NOTE | 2018-09-16 17:24 | NUR ---
PT TAKEN TO MED SURG PER JONATHAN
[2018-09-16 17:55] VITALS: BP 160/80
[2018-09-16 19:15] VITALS: BP 220/110
--- NOTE | 2018-09-16 19:25 | NUR ---
RECEIVED REPORT FROM NURSE YOUSSEF, PATIENT LYING IN BED, GRIMACING, GUARDING PAIN SCALE OF 10/10, BP 220/110 [place]OREY, CALLED DR. GIBBONS WITH ORDERS MADE ORDERS FAX TO PHARMACY. AWAITING VERIFICATION.
[2018-09-16 20:56] LABS: URINE BILIRUBIN - DIPSTICK NEGATIVE (NEGATIVE); URINE BLOOD DIPSTICK NEGATIVE (NEGATIVE); URINE COLOR YELLOW; URINE GLUCOSE - DIPSTICK NEGATIVE (NEGATIVE); URINE KETONE NEGATIVE (NEGATIVE); URINE LEUK ESTERASE NEGATIVE (Negative); URINE NITRITE - DIPSTICK NEGATIVE (Negative); URINE PH 5.5 (4.5-8.0); URINE PROTEIN - DIPSTICK 100 mg/dL (NEG-TRACE); URINE SPECIFIC GRAVITY >=1.030; URINE UROBILINOGEN - DIPSTICK 0.2 E.U./dL (0.2)
[2018-09-16 20:57] LABS: URINE CLARITY CLEAR
[2018-09-16 21:04] LABS: URINE RBC 0-2 RBC/hpf (0-5); URINE SQUAMOUS EPITHELIAL CELL FEW EPI/hpf (0-FEW)
--- NOTE | 2018-09-16 21:36 | NUR ---
REPEAT BP 168/98, 9PM BLOOD PRESSURE MEDICATIONS GIVEN, WILL CONTINUE TO MONITOR.
[2018-09-16 22:55] VITALS: BP 160/82
[2018-09-17] VITALS (8 sets, daily range): BP systolic 116–182; BP diastolic 56–98
--- NOTE | 2018-09-17 | NUR ---
PATIENT RESTING IN BED, EYES CLOSED EVEN UNLABORED BREATHING REMAINS ON BED ALARM.
--- NOTE | 2018-09-17 00:30 | NUR ---
PATIENT AWAKEN BY PAIN ON THE LEFT RIB, PRN LORTAB GIVEN, WILL REEVALUATE PAIN.
--- NOTE | 2018-09-17 01:50 | NUR ---
INFORMED DR. GIBBONS ABOUT PATIENTS BLOOD PRESSURE 160/98, NO NEW ORDERS MADE AND INFORMED ABOUT PATIENTS REQUEST FOR A SLEEP AIDE, ORDERS FAX TO PHARMACY.
--- NOTE | 2018-09-17 03:13 | NUR ---
PATIENT RESTING IN BED EYES CLOSED NO DISCOMFORTS NOTED AT THIS TIME WITH EVEN UNLABORED BREATHING.
--- NOTE | 2018-09-17 05:16 | NUR ---
PATIENT APPEARS TO BE SLEEPING, EYES CLOSED NO DISCOMFORTS AT THIS TIME, CALL LIGHT AT REACH
[2018-09-17 05:20] LABS: HEMOGLOBIN 9.2 g/dl (12.0-16.0); IMMATURE GRANULOCYTES 0.3 % (0.0-5.0); MEAN CELL VOLUME 83.1 fL CALC (80.0-100.0); MEAN CORPUSCULAR HGB 28.3 pG CALC (26.0-32.0); MEAN CORPUSCULAR HGB CONC 34.1 g/L CALC (32.0-36.0); NEUT# 3.41 thou/uL (2.00-7.15); RED BLOOD COUNT 3.25 mill/uL (4.20-5.60); RED CELL DISTRI WIDTH 15.4 % (11.5-15.5)
[2018-09-17 05:26] LABS: ALBUMIN 3.8 g/dL (3.2-5.0); BILIRUBIN, TOTAL 0.4 mg/dL (0.0-1.4); CREATININE 3.2 mg/dL (0.5-1.0); MAGNESIUM 2.2 mg/dL (1.6-2.3); TOTAL PROTEIN 7.9 g/dL (6.3-8.2)
[2018-09-17 05:52] LABS: POTASSIUM 5.3 mmol/l (3.5-5.1)
--- NOTE | 2018-09-17 07:05 | NUR ---
PT REPORT RECIEVED FROM MILKA Victoria RN. PT RESTING. NO S/S OF DISTRESS. CALL LIGHT IN REACH. WILL CONTINUE TO MONITOR.
--- NOTE | 2018-09-17 07:41 | NUR ---
PT A/O X4. SPEECH IS CLEAR. RESP EVEN AND UNLABORED. LUNG SOUNDS CLEAR. BOWEL SOUNDS ACTIVE X4. STRONG RADIAL AND PEDAL PULSES. #20 RAC SL. FLUSHED AND PATENT. SITE APPEARS HEALTHY. SKIN INTACT. PT C/O ACHING PAIN TO RT RIBS AND BACK; 10 OUT OF 10 ON PAIN SCALE. MEDICATED W/ 50 MG ULTRAM PO. SLIDE UP IN BED W/ ASSISTANCE OF SUPERVISOR SLEEPING BAG DEPARTMENT AND AMANDA HURST FOR COMFORT. PT DENIES ANY FURTHER NEEDS. POC DISCUSSED. SAFETY PRECAUTIONS IN PLACE. CALL LIGHT IN REACH. WILL CONTINUE TO MONITOR.
--- NOTE | 2018-09-17 08:42 | NUR ---
PT STATES PAIN HAS DECREASED BUT STILL REQUESTING MEDICATION. MED ADMINISTRATION DISCUSSED W/ PT. PT STATES UNDERSTANDING. HEATING AND COLD PACK GIVEN FOR COMFORT. PT DENIES ANY FURTHER NEEDS. WILL CONTINUE TO MONITOR.
--- NOTE | 2018-09-17 16:24 | NUR ---
PT RESTING, NO C/O PAIN OR NEEDS. CALL LIGHT IN REACH. WILL CONTINUE TO MONITOR.
--- NOTE | 2018-09-17 19:35 | NUR ---
ASSESSMENT COMPLETED; PT,. REPORTS SOB WITH MOVEMENT; O2 INFUSING PER NC @2LITERS/MIN FOR PT'S COMFORT; SPO2 WNL; C/O LEFT RIB PAIN 10/10 AND B/P ELEVATED AT 182/89; MEDICATED WITH ORDERED PRN LORTAB AND APRESOLINE ALONG WITH COREG; WILL REASSESS;PT. IS ENCOURAGED TO DEEP BREATHE INTERMITTENTLY TO ASSIST WITH LUNG EXPANSION; ASSISTED PT. ON AND OFF OF BEDPAN AND PT. ABLE TO PULL HERSELF IN BED; LINENS CHANGED AND DENISSE CARE GIVEN; ENCOURAGED TO CALL FOR ANY NEEDS; CALL LIGHT IS IN REACH; WILL CONTINUE TO MONITOR.
--- NOTE | 2018-09-17 21:41 | NUR ---
REASSESSED B/P AND NOW IS 138/65; PT. C/O LEFT RIB PAIN 11/01; MEDICATED WITH SCHEDULED TRAMADOL; WILL REASSESS; PT. ASSISTED ON AND OFF OF BEDPAN; PO FLUIDS OFFERED; CALL LIGHT IS IN REACH.
[2018-09-18] VITALS (7 sets, daily range): BP systolic 125–183; BP diastolic 67–84
--- NOTE | 2018-09-18 00:06 | NUR ---
PT. RESTING IN BED WITH NO DISTRESS NOTED; RESP EVEN AND UNLABORED; NEW BAG OF ORDERED IVF HUNG; ENCOURAGED TO CALL FOR ANY NEEDS; CALL LIGHT IS IN REACH.
--- NOTE | 2018-09-18 01:18 | NUR ---
PT. C/O LEFT RIB PAIN 01/01; MEDICATED WITH ORDERED LORTAB; WILL REASSESS; PT. GIVEN AND INCENTIVE SPIROMETER AND THIS WOOD CASKET MAKER GAVE INSTRUCTION OF USE; PT. REPORTS SHE DOESNT THINK SHE CAN DO THAT RIGHT NOW, BUT VERBALIZES UNDERSTANDING OF USAGE; SET AT BEDSIDE AND PT. IN ENCOURAGED TO USE; JUICE PROVIDED; CALL LIGHT IS IN REACH; WILL CONTINUE TO MONITOR.
--- NOTE | 2018-09-18 05:32 | NUR ---
PT. C/O LEFT RIB PAIN; MEDICATED WITH ORDERED LORTAB; WILL REASSESS; SNACK PROVIDED; CALL LIGHT IS IN REACH.
[2018-09-18 05:58] LABS: HEMATOCRIT 26.4 % (37.0-47.0); HEMOGLOBIN 9.2 g/dl (12.0-16.0); IMMATURE GRANULOCYTES 0.3 % (0.0-5.0); MEAN CELL VOLUME 82.5 fL CALC (80.0-100.0); MEAN CORPUSCULAR HGB 28.8 pG CALC (26.0-32.0); MEAN CORPUSCULAR HGB CONC 34.8 g/L CALC (32.0-36.0); NEUT# 4.63 thou/uL (2.00-7.15); RED BLOOD COUNT 3.2 mill/uL (4.20-5.60); RED CELL DISTRI WIDTH 15.1 % (11.5-15.5)
--- NOTE | 2018-09-18 06:00 | NUR ---
IV SITE TO RAC INFILTRATED; REMOVED AND CATHETER TIP INTACT; WARM PACK APPLIED; NEW IV STARTED TO #24 GAUGE X2 ATTEMPT;
[2018-09-18 06:21] LABS: ALBUMIN 3.9 g/dL (3.2-5.0); BILIRUBIN, TOTAL 0.4 mg/dL (0.0-1.4); CREATININE 3.4 mg/dL (0.5-1.0); MAGNESIUM 2.2 mg/dL (1.6-2.3); TOTAL PROTEIN 7.8 g/dL (6.3-8.2)
--- NOTE | 2018-09-18 08:00 | NUR ---
ASSESSMENT IS COMPLETED: IV SITE IS FREE FROM REDNESS OR EDEMA. HR IS REG,PULSES ARE STRONG X4, ABD IS SOFT WITH ACTIVE BS. BREATH SOUNDS ARE CLEAR, BILATERALLY. TELE MONITOR IN PLACE. CONTINUE TO OBSERVE AND MONITOR. PT C/O RIB PAIN.
--- NOTE | 2018-09-18 12:00 | NUR ---
PT IS RESTING IN BED , ENCOURAGING PT TO GET OUT OF BED PER REQUEST FROM DR. COHEN. C/O PAIN. CONTINUE TO OBSERVE AND MONITOR.
--- NOTE | 2018-09-18 14:30 | NUR ---
PT ASSISTED TO THE CHAIR, "STATED I CAN'T , ENCOURAGED TO YE YOU CAN I HAVE JACK IN YOU" PT IN THE CHAIR. CONTINUE TO OSBERVE AND MONITOR.
--- NOTE | 2018-09-18 16:00 | NUR ---
PT HAS BEEN SITTING IN THE CHAIR, IV SITE IS FREE FROM REDNESS OR EDEMA. CONTINUE TO OSBERVE AND MONITOR.
--- NOTE | 2018-09-18 20:20 | NUR ---
ASSESSMENT COMPLETED; NO RESP DISTRESS NOTED; PT. ON RA; ASSISTED ON AND OFF OF BEDPAN; PT. VOIDED 250MLS OF CLEAR YELLOW URINE; ENCOURAGED TO REPOSITION SELF AND DEEP BREATHE WELL USING THE INCENTIVE SPIROMETER; PT. ABLE TO PULL HERSELF UP IN BED; PO FLUIDS OFFERED; MEDICATED WITH ORDERED COREG AND APRESOLINE AT THIS TIME FOR ELEVATED B/P; WILL CONTINUE TO MONITOR. CALL LIGHT IS IN REACH; WILL CONTINUE TO MONITOR.
--- NOTE | 2018-09-18 23:57 | NUR ---
PT. REPORTING LEFT RIB PAIN 03/04 AND B/P IS ELEVATED; MEDICATED WITH ORDERED PRN LORTAB; WILL REASSESS PAIN AND B/P; PO FLUIDS OFFERED; DENIES FURTHER NEEDS; CALL LIGHT IS IN REACH.
[2018-09-19] VITALS (8 sets, daily range): BP systolic 150–195; BP diastolic 73–92
--- NOTE | 2018-09-19 00:47 | NUR ---
B/P REASSESSED AND IS 174/92; CALLED MD PILE DRIVER OPERATOR AND NOTIFIED HIM OF ALL PREVIOUS B/P MEDICATIONS PT. RECEIVED THIS SHIFT; NEW ORDERS RECEIVED AND TO BE CARRIED OUT.
--- NOTE | 2018-09-19 00:59 | NUR ---
MEDICATED WITH ORDERED APRESOLINE FOR B/P 174/92; WILL REASSESS; PT. ASSISTED ON AND OFF OF BEDPAN; PT. DECLINES WANTING TO GET OOB TO USE BSC; ENCOURAGED TO REPOSITION IN BED; PO FLUIDS OFFERED; CALL LIGHT IS IN REACH.
--- NOTE | 2018-09-19 02:36 | NUR ---
NOTIFIED DR. GIBBONS OF B/P REMAINING ELEVATED AT 178/82 MANUALLY AND HR 86 POST APRESOLINE ADMINISTRATION AT 0100; NEW ORDERS RECEIVED AND TO BE CARRIED OUT.
--- NOTE | 2018-09-19 02:50 | NUR ---
PT. MEDICATED WITH ORDERED LABETOLOL FOR ELEVATED B/P; WILL REASSESS; PT. DENIES NEEDS; CALL LIGHT IS IN REACH.
--- NOTE | 2018-09-19 04:55 | NUR ---
MANUAL B/P 188/82 AND PT. C/O LEFT RIB PAIN 12/02; MEDICATED WITH ORDERED LORTAB AND APRESOLINE IV PER ORDER; WILL REASSESS; DENIES FURTHER NEEDS; CALL LIGHT IS IN REACH.
[2018-09-19 05:02] LABS: HEMATOCRIT 23.3 % (37.0-47.0); HEMOGLOBIN 8.1 g/dl (12.0-16.0); IMMATURE GRANULOCYTES 0.4 % (0.0-5.0); MEAN CORPUSCULAR HGB 28.5 pG CALC (26.0-32.0); MEAN CORPUSCULAR HGB CONC 34.8 g/L CALC (32.0-36.0); NEUT# 4.98 thou/uL (2.00-7.15); RED BLOOD COUNT 2.84 mill/uL (4.20-5.60); RED CELL DISTRI WIDTH 15.3 % (11.5-15.5)
[2018-09-19 05:14] LABS: ALBUMIN 3.5 g/dL (3.2-5.0); BILIRUBIN, TOTAL 0.3 mg/dL (0.0-1.4); CREATININE 3.1 mg/dL (0.5-1.0); MAGNESIUM 2.1 mg/dL (1.6-2.3); POTASSIUM 4.7 mmol/l (3.5-5.1); TOTAL PROTEIN 7.3 g/dL (6.3-8.2)
--- NOTE | 2018-09-19 06:25 | NUR ---
REASSESSED MANUALLY AND B/P AND NOW B/P DOWN TO 170/84; PT. DENIES NEEDS AT THIS TIME; CALL LIGHT IS IN REACH; WILL CONTINUE TO MONITOR.
--- NOTE | 2018-09-19 08:20 | NUR ---
ASSESSMENT IS COMPLETED: IV SITE IS FREE FROM REDNESS OR EDEMA. HR IS REG,PULSES ARE STRONG X4, ABD IS SOFT WITH ACTIVE BS. BREATH SOUNDS ARE CLEAR,BILATERALLY. TELE MONITOR IN PLACE. CONTINUE TO OBSERVE AND MONITOR.
--- NOTE | 2018-09-19 12:15 | NUR ---
PT REFUSES TO GET OUT OF BED, IV SITE IS FREE FROM REDNESS OR EDEMA. IN TO VISIT PT AND WANTS TO SEND TO [facility].
--- NOTE | 2018-09-19 13:09 | NUR ---
SPOKE WITH PASCUAL DAUGHTER OF PATIENT/ INQUIRING ABOUT [employer]. INFORMED THIS COMPRESS MACHINE OPERATOR OF PT'S BROTHER AT [employer]. EXPLAINED WHAT WAS NEEDED. AND WILL LET HER KNOW WHEN PT LEAVES.
--- NOTE | 2018-09-19 13:28 | NUR ---
PT IS IN THE CHAIR, WANTS TO GO BACK TO BED, INSTRUCTED HER SHE NEEDS TO GET OUT OF BED. USED THE BSC
--- NOTE | 2018-09-19 15:18 | NUR ---
SPOKE WITH [facility] THEY WILL BE HERE SOON TO TRANSPORT PT TO [facility]
--- NOTE | 2018-09-19 15:30 | NUR ---
Discharge instructions given. Patient verbalizes understanding of same. Discharged in stable condition via Medical Transport to *Other with *Other. All belongings sent with pt.JSOSIE GERARDO AND WAS TAKEN BY [facility].
--- NOTE | 2018-09-19 15:36 | NUR ---
INFORMED PASCUAL HER DAUGHTER OF PT BEING SENT TO [facility], VERBALIZED THANKS ALSO INFORMED THAT PT WAS UP IN THE CHAIR
--- NOTE | 2018-09-19 15:50 | NUR ---
CALLED SPENCER PAIGE AT [facility] AND GAVE REPORT. INFORMED THAT PT WAS ON HER WAY. VERBALIZED UNDERSTANDING. IV SITE IS FREE FROM REDNESS OR EDMEA.
== END 2018-09-19 15:35 | DRG 683 ==
LOC: ED 11:48 → ED-I 14:39 → ED 15:19 → MS2 15:20
PROVIDERS: Emergency Medicine; ADMIT Internal Medicine Nephrology; ATTEND Internal Medicine Nephrology
DX: N17.9 Acute kidney failure, unspecified (principal); E87.2 Acidosis; E87.5 Hyperkalemia; I12.9 Hypertensive chronic kidney disease with stage 1 through stage 4 chronic kidney disease, or unspecified chronic kidney disease; E11.22 Type 2 diabetes mellitus with diabetic chronic kidney disease; E11.21 Type 2 diabetes mellitus with diabetic nephropathy; N18.4 Chronic kidney disease, stage 4 (severe); I25.10 Atherosclerotic heart disease of native coronary artery without angina pectoris; F14.10 Cocaine abuse, uncomplicated; F12.10 Cannabis abuse, uncomplicated; E83.39 Other disorders of phosphorus metabolism; T44.5X5A Adverse effect of predominantly beta-adrenoreceptor agonists, initial encounter; J44.9 Chronic obstructive pulmonary disease, unspecified; D63.1 Anemia in chronic kidney disease; F17.210 Nicotine dependence, cigarettes, uncomplicated; B18.2 Chronic viral hepatitis C; S20.212A Contusion of left front wall of thorax, initial encounter; W01.0XXA Fall on same level from slipping, tripping and stumbling without subsequent striking against object, initial encounter; Z95.5 Presence of coronary angioplasty implant and graft; Z79.4 Long term (current) use of insulin; Z95.828 Presence of other vascular implants and grafts

== ENCOUNTER 2018-09-25 17:49 | Emergency (ER) | payer OTHER ==
[~2018-09-25] VITALS: Ht 165.1 cm; Wt 70.0 kg
[2018-09-25 19:06] LABS: IMMATURE GRANULOCYTES 0.5 % (0.0-5.0); MEAN CELL VOLUME 83.4 fL CALC (80.0-100.0); MEAN CORPUSCULAR HGB 28.9 pG CALC (26.0-32.0); MEAN CORPUSCULAR HGB CONC 34.6 g/L CALC (32.0-36.0); NEUT# 5.11 thou/uL (2.00-7.15); RED BLOOD COUNT 3.74 mill/uL (4.20-5.60); RED CELL DISTRI WIDTH 15.3 % (11.5-15.5)
[2018-09-25 19:07] LABS: HEMATOCRIT 31.2 % (37.0-47.0); HEMOGLOBIN 10.8 g/dl (12.0-16.0)
[2018-09-25 19:30] LABS: ALBUMIN 4.2 g/dL (3.2-5.0); BILIRUBIN, TOTAL 0.4 mg/dL (0.0-1.4); CREATININE 2.7 mg/dL (0.5-1.0); TOTAL PROTEIN 8.5 g/dL (6.3-8.2)
[2018-09-25] MEDS ORDERED: LORTAB 1010 MG PO (19:38)
[2018-09-25 20:10] VITALS: BP 129/59
== END 2018-09-25 20:10 | disposition home or self-care (01) ==
LOC: ED 17:49
PROVIDERS: Emergency Medicine
DX: S22.42XA Multiple fractures of ribs, left side, initial encounter for closed fracture (principal); E11.9 Type 2 diabetes mellitus without complications; I10 Essential (primary) hypertension; F17.200 Nicotine dependence, unspecified, uncomplicated; W18.39XA Other fall on same level, initial encounter

== ENCOUNTER 2018-10-01 10:29 | Observation (INO) | payer OTHER ==
[2018-10-01] VITALS (29 sets, daily range): BP systolic 145–212; BP diastolic 67–94
[~2018-10-01] VITALS: Ht 162.6 cm; Wt 59.6 kg
[~2018-10-01 10:29] MED LIST changes: +LORTAB 1010 MG PO
--- NOTE | 2018-10-01 10:37 | NUR ---
PT TO ROOM VIA WHEELCHAIR. MD NOTIFIED OF ELEVATED BP.
--- NOTE | 2018-10-01 10:54 | NUR ---
PT STATES HAS RAN OUT OF PAIN MEDICATIONS, BUT UNABLE TO OBTAIN MEDICATION RECONCILLIATION, PT STATES THAT SHE DOESNT REMEMBER HER MED LIST.
--- NOTE | 2018-10-01 10:55 | NUR ---
PT STATES SHE IS HERE FOR PAIN CONTROL AND THAT THE AT [facility] GIVE HER THE PAIN MEDS THAT WE CAN. WAS TOLD BY DR. Emanuel TO GO TO A PAIN MANAGEMENT DOCTOR BUT SHE HASNT TRIED TO SET UP AN APPT YET.
--- NOTE | 2018-10-01 11:32 | NUR ---
WARM BLANKET GIVEN, CALL LIGHT WITHIN REACH.
--- NOTE | 2018-10-01 11:35 | NUR ---
BLOOD PRESSURE REMAINS HIGH, NOTIFIED.
[2018-10-01 11:38] LABS: ALBUMIN 4.6 g/dL (3.2-5.0); BILIRUBIN, TOTAL 0.5 mg/dL (0.0-1.4); CREATININE 2.8 mg/dL (0.5-1.0); POTASSIUM 4.8 mmol/l (3.5-5.1); TOTAL PROTEIN 9.7 g/dL (6.3-8.2)
[2018-10-01 12:05] LABS: HEMATOCRIT 32.6 % (37.0-47.0); HEMOGLOBIN 11.2 g/dl (12.0-16.0); IMMATURE GRANULOCYTES 0.3 % (0.0-5.0); MEAN CELL VOLUME 83.2 fL CALC (80.0-100.0); MEAN CORPUSCULAR HGB 28.6 pG CALC (26.0-32.0); MEAN CORPUSCULAR HGB CONC 34.4 g/L CALC (32.0-36.0); NEUT# 5.21 thou/uL (2.00-7.15); RED BLOOD COUNT 3.92 mill/uL (4.20-5.60); RED CELL DISTRI WIDTH 15.8 % (11.5-15.5)
--- NOTE | 2018-10-01 12:31 | NUR ---
GUY GTT BEGUN PER DR. DING
--- NOTE | 2018-10-01 12:42 | NUR ---
BLOOD PRESSURE 242/90 TITRATED NICARDIPENE TO 7.5
--- NOTE | 2018-10-01 12:46 | NUR ---
NOTIFIED OF CONTINUED HIGH BLOOD PRESSURE, TITRATING NICARDIPINE PER POLICY EVERY 15 MIN.
--- NOTE | 2018-10-01 13:20 | NUR ---
PT REPORT GIVEN TO ICU FOR CONTINUATION OF CARE
--- NOTE | 2018-10-01 13:40 | NUR ---
female pt received to ICU bed 2 via stretcher accompanied by Jasmine Hercules RN in stable condition; pt transferred to bed with staff assistance; weight obtained via bed scale; admission assessment completed at this time; pt alert and oriented; c/c of "left rib cage pain"; pt states she fell over the bath tub a week ago and still has ongoing pain/ she ran out of her pain meds; rates pain as sharp /10; prev medicated in ER; resp unlabored; ra; hr reg; sr on monitor; abd nondistended; no urine to inspect at this time; bsc; #20 to rh patent with cardene gtt infusing at 15mg/hr and ns at kvo; pt admits to not taking medication as prescribed at home; plan of care explained; call light within reach; will continue to monitor
[2018-10-01] MEDS ORDERED: PANTOPRAZOLE SO40 M1 PO (14:13)
[2018-10-01] MEDS ORDERED: CARVEDILOL25 MG PO (14:16)
[2018-10-01] MEDS ORDERED: ISOSORB MONO20 M1 PO (14:17)
[2018-10-01 14:21] LABS: URINE BILIRUBIN - DIPSTICK NEGATIVE (NEGATIVE); URINE BLOOD DIPSTICK MODERATE (NEGATIVE); URINE COLOR YELLOW; URINE GLUCOSE - DIPSTICK NEGATIVE (NEGATIVE); URINE KETONE NEGATIVE (NEGATIVE); URINE LEUK ESTERASE NEGATIVE (NEGATIVE); URINE NITRITE - DIPSTICK NEGATIVE (Negative); URINE PH 5.5 (4.5-8.0); URINE PROTEIN - DIPSTICK >=300 mg/dL (NEG-TRACE); URINE SPECIFIC GRAVITY >=1.030; URINE UROBILINOGEN - DIPSTICK 0.2 E.U./dL (0.2)
[2018-10-01 14:24] LABS: BARBITURATES NEGATIVE (NEGATIVE); COCAINE NEGATIVE (NEGATIVE); METHADONE NEGATIVE (NEGATIVE); OXCYCODONE NEGATIVE (NEGATIVE); TETRAHYDROCANNABIONOL NEGATIVE (NEGATIVE); TRICYLIC ANTIDEPRESSANTS NEGATIVE (NEGATIVE)
[2018-10-01 14:35] LABS: URINE SQUAMOUS EPITHELIAL CELL FEW EPI/hpf (0-FEW); URINE WBC 0-2 WBC/hpf (0-5)
--- NOTE | 2018-10-01 16:22 | NUR ---
DR COHEN IN ROOM TO ASSESS PATIENT WELL DISCUSS PLAN OF CARE. DR COHEN GAVE ORDER TO KEEP PATIENT'S BLOOD PRESSURE IN THE 150'S SYSTOLIC. CARDENE DRIP TITRATED FROM 15MG/HR TO 10MG/HR PER DR COHEN. DR COHEN SPOKE TO PATIENT ABOUT PAIN MANAGEMENT AND WHAT MEDICATION HAS BEEN GIVEN FOR PAIN, DR COHEN INSTRUCTED TO USE HEAT OR COLD THERAPY FOR PAIN. PATIENT DENIES SHE HAS KIDNEY ISSUES. CALL LIGHT WITHIN REACH. NURSING STAFF EDUCATED PATIENT AND OFFERED HEATING PAD. CALL LIGHT WITHIN REACH.
--- NOTE | 2018-10-01 18:13 | NUR ---
PATIENT REQUESTING MORE PAIN MEDICATION. PATIENT THREATENING SHE WILL LEAVCE AMA. DR COHEN CALLED AND RECEIVED ORDER FOR MORPHINE 2MG IV Q4H FOR SEVER PAIN. PATIENT CAB WORKER LIGHT AND NOTIFIED ME SHE WILL BE LEAVING AMA. I LET HER KNOW THAT PAIN MEDICATION WAS ORDERED FOR HER, SHE THAN ASKED IF SHE COULD HAVE IT BEFORE SHE LEFT AMA. I LET HER KNOW SHE CANNOT HAVE IT IF SHE IS LEAVING AMA. I EDUCATED PATIENT ON RISKS AND DETERIORATIONS OF LEAVING AMA WITH HIGH BLOOD PRESSURE. PATIENT STILL ADIMENT TO LEAVE. SHE REPORTED DAUGHTER IS ON HER WAY.
--- NOTE | 2018-10-01 18:34 | NUR ---
Patient decides to leave AMA. Multiple attempts made to ecourage patient to remain here for continued treatment. Explained to patient all risks of leaving against medical advice including . Pt verbalized understanding of all risks. Pt also encouraged to return to [facility] at any time, especially if symptoms continue or become worse. Pt verbalized understanding.
--- NOTE | 2018-10-01 18:34 | NUR ---
pt left AMA in stable condition; this film writer spoke with pt and daughter Cookie in great detail in regards to severely elevated BP, risk of deteroriation in condition and stroke; pt and daughter informed to return to ER immed/ call 911 for symptoms of stroke; pt very upset; pt informed daughter staff has waited all day to order Morphine; daughter informed pt has been medicated with tramadol and morphine was offered/ pt requested morphine prior to leaving AMA; pt also states physician called her a "crack head";
--- NOTE | 2018-10-01 18:34 | NUR ---
IV TAKEN OFF. DRSSING APPLIED. DRIP TAKEN OFF AND NORMAL SALINE WELL. DAUGHTER HERE AT BEDSIDE. PATIENT AWARE BLOOD PRESSURE IS STILL HIGH. PATIENT SAFELY TRASNFERRED IN WHEELCHAIR WITH DAUGHTER AND NURSING STAFF TO CAR.
--- NOTE | 2018-10-01 19:00 | NUR ---
Dr Paiz informed pt has left AMA
== END 2018-10-01 18:34 | disposition left against medical advice (07) ==
LOC: ED 10:29 → ED-I 11:44 → ED 12:29 → ICU 12:30
PROVIDERS: Emergency Medicine; ADMIT Internal Medicine Nephrology; ATTEND Internal Medicine Nephrology
DX: I16.1 Hypertensive emergency (principal); I12.9 Hypertensive chronic kidney disease with stage 1 through stage 4 chronic kidney disease, or unspecified chronic kidney disease; T46.5X6A Underdosing of other antihypertensive drugs, initial encounter; E11.22 Type 2 diabetes mellitus with diabetic chronic kidney disease; N18.4 Chronic kidney disease, stage 4 (severe); E11.21 Type 2 diabetes mellitus with diabetic nephropathy; F17.200 Nicotine dependence, unspecified, uncomplicated; S22.42XD Multiple fractures of ribs, left side, subsequent encounter for fracture with routine healing; B19.20 Unspecified viral hepatitis C without hepatic coma; J44.9 Chronic obstructive pulmonary disease, unspecified; K74.60 Unspecified cirrhosis of liver; E11.51 Type 2 diabetes mellitus with diabetic peripheral angiopathy without gangrene; D64.9 Anemia, unspecified; K21.9 Gastro-esophageal reflux disease without esophagitis; E78.5 Hyperlipidemia, unspecified; G89.29 Other chronic pain; W19.XXXD Unspecified fall, subsequent encounter; Z91.128 Patient's intentional underdosing of medication regimen for other reason; Z95.820 Peripheral vascular angioplasty status with implants and grafts

== ENCOUNTER 2018-10-10 19:35 | Observation (INO) | payer OTHER ==
[~2018-10-10] VITALS: Ht 165.1 cm; Wt 60.3 kg
[~2018-10-10 19:35] MED LIST changes: +CARVEDILOL25 MG PO; +PANTOPRAZOLE SO40 M1 PO
--- NOTE | 2018-10-10 19:57 | NUR ---
BY W/C TO ROOM
--- NOTE | 2018-10-10 20:04 | NUR ---
VOMITING AND DIRRAHEA BEGAN THIS MORNING. PT IS AOX4. PT DENIES ANY C/P, SOB, N/V. PT STATES GENERALIZED WEAKNESS.
[2018-10-10 20:46] LABS: HEMATOCRIT 32.1 % (37.0-47.0); HEMOGLOBIN 11.4 g/dl (12.0-16.0); IMMATURE GRANULOCYTES 0.5 % (0.0-5.0); MEAN CELL VOLUME 80.7 fL CALC (80.0-100.0); MEAN CORPUSCULAR HGB 28.6 pG CALC (26.0-32.0); MEAN CORPUSCULAR HGB CONC 35.5 g/L CALC (32.0-36.0); NEUT# 13.1 thou/uL (2.00-7.15); RED BLOOD COUNT 3.98 mill/uL (4.20-5.60); RED CELL DISTRI WIDTH 15.3 % (11.5-15.5)
[2018-10-10 20:54] LABS: ALBUMIN 4.6 g/dL (3.2-5.0); BILIRUBIN, TOTAL 0.5 mg/dL (0.0-1.4); CREATININE 3.3 mg/dL (0.5-1.0); POTASSIUM 4.2 mmol/l (3.5-5.1); TOTAL PROTEIN 9.4 g/dL (6.3-8.2)
--- NOTE | 2018-10-10 21:18 | NUR ---
PT ASSISTED TO BEDPAN- URINE SAMPLE OBTAINED.
[2018-10-10 21:30] LABS: URINE BILIRUBIN - DIPSTICK NEGATIVE (NEGATIVE); URINE BLOOD DIPSTICK LARGE (NEGATIVE); URINE COLOR YELLOW; URINE GLUCOSE - DIPSTICK NEGATIVE (NEGATIVE); URINE KETONE NEGATIVE (NEGATIVE); URINE LEUK ESTERASE NEGATIVE (NEGATIVE); URINE NITRITE - DIPSTICK NEGATIVE (Negative); URINE PH 5.5 (4.5-8.0); URINE PROTEIN - DIPSTICK >=300 mg/dL (NEG-TRACE); URINE SPECIFIC GRAVITY >=1.030; URINE UROBILINOGEN - DIPSTICK 0.2 E.U./dL (0.2)
--- NOTE | 2018-10-10 21:39 | NUR ---
PASCUAL- DAUGHTER [phone]
[2018-10-10 21:40] LABS: URINE SQUAMOUS EPITHELIAL CELL FEW EPI/hpf (0-FEW)
--- NOTE | 2018-10-10 21:55 | NUR ---
REPORT TO PATRICIA PAIGE
--- NOTE | 2018-10-10 23:43 | NUR ---
63 yr old black female adm icu7 per stretcher from er. transferred self with much encouragement to bed. bed weight obtained. site monitor shows sinus rhythm. #22 rfa cardene gtt infusing @ 150cchr, ns infusung @ 20cchr. history obtained per er record & pt. oriented to room. fall precautions initiated.
--- NOTE | 2018-10-10 23:45 | NUR ---
Admission Note Report Given to: ROYAL ADAME Transported by: Wheelchair X Stretcher Transported with: X Nurse Transporter X Patent IV O2 X Import/Export Analyst
[2018-10-11] VITALS (34 sets, daily range): BP systolic 119–177; BP diastolic 50–83
--- NOTE | 2018-10-11 02:00 | NUR ---
incont of urine. pull up removed. trudy care given.
--- NOTE | 2018-10-11 04:30 | NUR ---
up to [facility]. voided small amt. rossana well.
--- NOTE | 2018-10-11 05:45 | NUR ---
requested bedpan. request denied. assisted x1 to [facility]. rossana well. pt admits "i want to turn." instructed pt to turn. pt turned self.
--- NOTE | 2018-10-11 07:20 | NUR ---
pt awake in bed; no apparent distress noted; assessment completed at this time; pt alert and oriented; admits to gen pain; no n/v noted; resp even and unlabored; lungs clear bilat; skin color wnl; ra; hr reg; strong pulses; no edema noted; sr on monitor; abd soft with bs prsent; no bm noted per sql report writer; no diarrhea reported since admission; pt admits to voiding without pain or burning; no urine to inspect at this time; bsc; #20 to rfa patent with ivf infusing at kvo/ cardene gtt at 15mg/hr; no redness or edema noted at site; plan of care/ am meds explained; call light within reach; will continue to monitor
--- NOTE | 2018-10-11 08:01 | NUR ---
resting in bed with eyes closed; no apparent distress noted; pt offers no complaints; iv intact and patent; cardene continues at 15 mg/hr; no redness or edema noted at site; sr on monitor; will continue to monitor
--- NOTE | 2018-10-11 08:58 | NUR ---
Rx student at bedside for med rec
--- NOTE | 2018-10-11 09:02 | NUR ---
Dr Piaz called per abstract writer; abstract writer informed MD of pt's temp 101.3 with no tylenol or antibiotics ordered; also informed of pt complaints of pain; orders received and on chart
--- NOTE | 2018-10-11 09:31 | NUR ---
pt nurse transitional light requesting help to "turn over"; pt instructed to reposition self and be more active for adls for self; pt able to reposition self to right side without complication; will continue to monitor
[2018-10-11] MEDS ORDERED: ULTRAM50 M1 PO (09:34)
[2018-10-11] MEDS ORDERED: HYDRALAZINE25 MG PO (09:35)
[2018-10-11] MEDS ORDERED: NIFEDIPINE ER60 M1 PO (09:36)
[2018-10-11] MEDS ORDERED: ALDACTONE50 MG PO (09:36)
[2018-10-11] MEDS ORDERED: BRILINTA90 MG PO (09:37)
[2018-10-11] MEDS ORDERED: LISINOPRIL40 MG PO (09:37)
[2018-10-11] MEDS ORDERED: CLONIDINE0.1 MG PO (09:38)
--- NOTE | 2018-10-11 10:10 | NUR ---
pt chief information officer light requesting bedpan; pt instructed she will be assisted per this song writer to bsc; educated on need to increase activity/ build strength; pt states "I think I have already went"; up to bsc; lg incontinence of liquid brown stool noted to bed and now floor; partial bath given; back to bed; cardene gtt weaned at this time; ns remains at kvo; Dr Paiz present at bedside; no orders received; will continue to monitor
--- NOTE | 2018-10-11 11:35 | NUR ---
Dr Paiz called per engineering writer in regards to pt being a diabetic with no accucheck/coverage ordered; orders to be placed
--- NOTE | 2018-10-11 11:51 | NUR ---
awake in bed; medications explained and given; pt refused both breakfast and lunch; tolerating po fluids well; iv patent; ivf infusing without complication; sr on monitor; bp remain stable; denies additional needs; call light within reach; will continue to monitor
--- NOTE | 2018-10-11 14:10 | NUR ---
awake in bed; additional blankets provided as per request; iv patent; fluids infusing without complication; no redness or edema noted at site; sr on monitor; afebrile; toileting offered/declined; will continue to monitor
--- NOTE | 2018-10-11 15:35 | NUR ---
pt long wall shear operator light; admits to incontinence; assist to bsc for linen change; liquid stool expelling as pt being assisted to commode; pericare per mortgage underwriter; back to bed; sr on monitor sbp 170; pt to medicated with hydralazine prn; pt offers no complaints; call light within reach; will continue to monitor
--- NOTE | 2018-10-11 16:19 | NUR ---
awake in bed; pt with complaints of being cold; pt request this development writer to turn marcelo on, denied; pt explained s/s of fever and current temp of 101.0; development writer request to remove blankets (pt with 4 blankets on bed) and pt has refused; medicated with tylenol; iv patent; fluids infusing without complication; will continue to monitor
--- NOTE | 2018-10-11 16:25 | NUR ---
Dr Paiz informed again per conventional mortgage underwriter of elevated temp, current 101+ with no orders for antibiotics and questionable uti; tylenol administered as per orders; orders to be placed
--- NOTE | 2018-10-11 17:00 | NUR ---
temp 101.5; again, business writer has explained the need to remove blankets; pt continues to refuse to allow business writer to remove blanket; room temp dropped per this business writer; will continue to monitor
[2018-10-11 17:16] LABS: C. DIFFICILE TOXIN A&B NEGATIVE (NEGATIVE)
--- NOTE | 2018-10-11 17:56 | NUR ---
awake in bed; no apparent distress noted; pt offers no complaints; iv patent; fluids infusing without complication; no redness or edema noted at site; sr on monitor; pt deny needs; portable phone provided; call light within reach
--- NOTE | 2018-10-11 19:30 | NUR ---
awake. requests to be turned. instructed pt she was able to turn self. pt requires much encouragement to assist with care as she is more than capable but doesn't want to. pvc monitor shows sinus rhythm. #20 rfa rl infusing @ 75cchr. po fluids taken voids incont & per bsc. fall precautions cont.
--- NOTE | 2018-10-11 21:15 | NUR ---
c/o back pain. tylenol 650mg po given.
--- NOTE | 2018-10-11 22:00 | NUR ---
eyes closed. no distress. cardiac rehab nurse shows sinus rhythm.
[2018-10-12] VITALS (14 sets, daily range): BP systolic 109–156; BP diastolic 53–82
--- NOTE | 2018-10-12 00:01 | NUR ---
eyes closed. no distress. ivf infusing well.
--- NOTE | 2018-10-12 02:00 | NUR ---
up to bsc. rossana well. no apparent distress.
--- NOTE | 2018-10-12 03:15 | NUR ---
c/o back pain. tylenol 650mg po given.
--- NOTE | 2018-10-12 04:40 | NUR ---
c/o nausea. zofran 4mg ivp given.
--- NOTE | 2018-10-12 06:00 | NUR ---
eyes closed. no distress. pvc monitor shows sinus rhythm.
--- NOTE | 2018-10-12 06:31 | NUR ---
lab here. blood drawn.
[2018-10-12 06:40] LABS: IMMATURE GRANULOCYTES 0.4 % (0.0-5.0); MEAN CELL VOLUME 80.1 fL CALC (80.0-100.0); MEAN CORPUSCULAR HGB 28.8 pG CALC (26.0-32.0); MEAN CORPUSCULAR HGB CONC 35.9 g/L CALC (32.0-36.0); NEUT# 8.8 thou/uL (2.00-7.15); RED BLOOD COUNT 2.92 mill/uL (4.20-5.60); RED CELL DISTRI WIDTH 15.1 % (11.5-15.5)
[2018-10-12 07:00] LABS: HEMATOCRIT 23.4 % (37.0-47.0); HEMOGLOBIN 8.4 g/dl (12.0-16.0)
--- NOTE | 2018-10-12 07:10 | NUR ---
pt places call light on; pt awake in bed; no apparent distress noted; pt asking about when she can go home; educated regrding d/c process and need for D/C orders; AM assessment completed at this time; pt alert and oriented; complains of generalized pain but non specific with details and locations; no n/v noted; resp even and unlabored; lungs clear bilat; hr reg; strong pulses; no edema noted; SR on monitor, rate 90's; abd soft with bs prsent; last bm yesterday per report; denies difficulty urinating; no urine to inspect at this time; bsc; #20 to rfa patent with ivf infusing at prescribed rate no redness or edema noted at site; plan of care/ am meds explained; call light within reach; will continue to monitor
[2018-10-12 07:20] LABS: CREATININE 3.2 mg/dL (0.5-1.0); POTASSIUM 3.9 mmol/l (3.5-5.1)
--- NOTE | 2018-10-12 07:35 | NUR ---
Pt declined am meal altermara offered, dietary notified of pt request for cheerios.
--- NOTE | 2018-10-12 07:45 | NUR ---
Dietary here, cheerios and milk provided to patient as requested.
--- NOTE | 2018-10-12 08:10 | NUR ---
pt oob with min assist to bsc, call ferreira within reach, instructed to call when ready, verbalizes understanding
--- NOTE | 2018-10-12 08:15 | NUR ---
pt continent of small ma[place] celar yellow urine, self trudy cre provided and pt backto bed with same assist, tolerated activity well, call ferreira within reach, will continue to monitor.
--- NOTE | 2018-10-12 09:30 | NUR ---
PT ASSISTED OOB TO RECLINER, TOLERATED ACTIVITY WELL, OFFERS NO COMPLAINTS TEMP IMPROVED SINCE TYLENOL, COMFROT MEASURES PROVIDED, WILL CONTINUE TO MONITOR, CALL JEANNETTE RAMIREZ
--- NOTE | 2018-10-12 10:25 | NUR ---
PT BACK TO BED WITH MIN ASSIST, TOLERATES ACTIVITY WELL, CALL MACHADO WITHIN REACH, WILL CONTINUE TO MONITOR.
--- NOTE | 2018-10-12 11:03 | NUR ---
INTO SEE PATIENT, PLAN OF CARE DISCUSSED
--- NOTE | 2018-10-12 12:15 | NUR ---
PT RESTING IN BED, OFFERS NO COMPLAINTS, ASSISTED WITH AFTERNOON MEAL, ACCU CHECK COMPLETED EARLIER AND COVERAGE GIVEN ORDERED, CALL MACHADO WITHIN REACH, WILL CONTINUE TO MONITOR.
--- NOTE | 2018-10-12 13:27 | NUR ---
PT OOB TO RECLINER, INCONTINENT OF MODERATE LOOSE STOOL, DENISSE CARE PROVIDED AND SITTING IN RECLINER WITH FEET ELEVATED, WILL CONTINUE TO MONITOR
--- NOTE | 2018-10-12 13:58 | NUR ---
REPORT CALLED TO GABE POLK ROOM [id number] ASSIGNED
--- NOTE | 2018-10-12 14:15 | NUR ---
PT OUT OR RECLINER TO BSC SOME INCONTINENCE OF STOOL, DENISSE CARE PROVIDED AND OB PANTIES AND INCONTINENCE PAD PLACED, THEN TRANSFERRED PT TO MED SURG VIA WHEELCHAIR, ALL BELONGINGS SENT WITH PT. ARIS PATEL ON ROOM UPON ARRIVAL, ARIS AND NURSE GABE AWARE OF NEED FOR TELEMETRY.
--- NOTE | 2018-10-12 20:00 | NUR ---
PT. RESTING IN BED WITH NO DISTRESS NOTED; RESP EVEN AND UNLABORED; O2 INFUSING PER NC @2LITERS/MIN DUE TO PT'S SPO2 BEING 88% ON RA; ASSESSMENT COMPLETED; VOICES NO CONCERNS; CALL LIGHT IS IN REACH; WILL CONTINUE TO MONITOR.
--- NOTE | 2018-10-12 22:00 | NUR ---
2154- PT. REPORTING SOB SPO2 91% ON O2 @2LITERS/MIN PER NC; LS CLEAR;PT. IS A SHALLOW BREATHER AND ENCOURAGED TO DEEP BREATHE WELL INCENTIVE SPIROMETER GIVEN AND PT. PULLING 500 AND IS INSTRUCTED TO USE 10X'S AN HOUR WHILE AWAKE;PT. REPORTING ANXIETY AND REPORTS THAT SHE NEEDS XANAX ORDERED TO RELAX HER. 2199- NOTIFIED DR. GIBBONS OF THE ABOVE NOTE; NEW ORDERS RECEIVED AND TO BE CARRIED OUT.
--- NOTE | 2018-10-12 23:43 | NUR ---
PT. RESTING IN BED REPORTS XANAX HELPED HER RELAX SOME; AGAIN RE-EDUCATED ON DEEP BREATHING TECHNIQUES; VS OBTAINED; SPO2 90% ON O2 @2LITERS/MIN PER NC; ENCOURAGED TO CALL FOR ANY NEEDS; CALL LIGHT IS IN REACH; WIRING MECHANIC IN AT BEDSIDE ASSISTING PT. TO BSC; WILL CONTINUE TO MONITOR.
[2018-10-13 04:10] VITALS: BP 156/75
--- NOTE | 2018-10-13 04:43 | NUR ---
PT. IS MEDICATED WITH ORDERED TYLENOL FOR TEMP OF 100.2; WILL REASSESS; PT. DENIES FURTHER NEEDS; CALL LIGHT IS IN REACH. LEGAL COUNSEL WAS NOTIFIED OF CXRAY RESULTS FROM [facility] WELL CURRENT ABT'S;
[2018-10-13 06:45] LABS: HEMOGLOBIN 8.8 g/dl (12.0-16.0); IMMATURE GRANULOCYTES 0.6 % (0.0-5.0); MEAN CELL VOLUME 79.5 fL CALC (80.0-100.0); MEAN CORPUSCULAR HGB 29.1 pG CALC (26.0-32.0); MEAN CORPUSCULAR HGB CONC 36.7 g/L CALC (32.0-36.0); NEUT# 9.52 thou/uL (2.00-7.15); RED BLOOD COUNT 3.02 mill/uL (4.20-5.60); RED CELL DISTRI WIDTH 15.1 % (11.5-15.5)
[2018-10-13 06:59] LABS: POTASSIUM 3.7 mmol/l (3.5-5.1)
--- NOTE | 2018-10-13 07:05 | NUR ---
PT REPORT RECIEVED FROM ROYAL LANDERS. PT RESTING. NO S/S OF DISTRESS. CALL LIGHT IN REACH. WILL CONTINUE TO MONITOR.
[2018-10-13 08:04] VITALS: BP 162/74
[2018-10-13 09:19] VITALS: BP 126/64
--- NOTE | 2018-10-13 10:30 | NUR ---
PT A/O X3. SPEECH IS CLEAR. RESP EVEN AND UNLABORED. LUNG SOUNDS CLEAR. O2 @3L ON PT FOR SOB AND DECREASED O2 STATUS; PT NONCOMPLIANT, REMOVES O2 SHORTLY AFTER PUTTING IT ON. TELE IN PLACE. BOWEL SOUNDS ACTIVE X4. STRONG RADIAL AND PEDAL PULSES. #20 RAC LR @75. SITE APPEARS HEALTHY. SKIN INTACT. PT DENIES ANY PAIN OR NEEDS. POC DISCUSSED. INCENTIVE SPIROMETER AT BEDSIDE; ENCOURAGED USE. CALL LIGHT IN REACH. WILL CONTINUE TO MONITOR.
--- NOTE | 2018-10-13 11:34 | NUR ---
PT RESTING IN BED. REPOSITIONED FOR COMFORT DUE TO BACK PAIN. PT DENIES ANY FURTHER NEEDS. CALL LIGHT IN REACH. WILL CONTINUE TO MONITOR.
[2018-10-13 12:37] VITALS: BP 119/59
[2018-10-13 16:14] VITALS: BP 145/73
--- NOTE | 2018-10-13 17:10 | NUR ---
PT C/O BACK PAIN 9 OUT OF 10 ON PAIN SCALE. MEDICATED W/ 650 MG TYLENOL PO. REPOSITIONED FOR COMFORT. PT DENIES ANY FURTHER NEEDS. IV INFUSING. TELE IN PLACE. CALL LIGHT IN REACH. WILL CONTINUE TO MONITOR.
[2018-10-13 19:00] VITALS: BP 148/67
--- NOTE | 2018-10-13 19:20 | NUR ---
ASSESSMEMT COMPLETED; NO DISTRESS NOTED; RESP EVEN SHALLOW; ENCOURAGED DEEP BREATHING AND USE OF INCENTIVE SPIROMETER; DENIES NEEDS; O2 INFUSING PER NC A PER ORDER; DENIES NEEDS; CALL LIGHT IS IN REACH.
--- NOTE | 2018-10-13 22:10 | NUR ---
PT. ANXIOUS; MEDICATED WITH ORDERED XANAX PER ORDER; ORANGE JUICE PROVIDED; CALL LIGHT IS IN REACH.
[2018-10-14] VITALS (9 sets, daily range): BP systolic 145–170; BP diastolic 58–89
--- NOTE | 2018-10-14 00:06 | NUR ---
PT. REPORTING LEFT RIB PAIN AND BACK PAIN; MEDICATED WITH ORDERED TYLENOL; WILL REASSESS; DENIES FURTHER NEEDS; CALL LIGHT IS IN REACH.
--- NOTE | 2018-10-14 02:30 | NUR ---
DELIVERY CREW MEMBER IN AT BEDSIDE CHANGING PT. OF INCONTINENCE OF URINE; PT. IS REFUSING TO GET OOB TO VOID AND REPORTS SHE JUST DOESNT HAVE THE STRENGTH TO GET OOB; PT. IS ENCOURAGED TO GET OOB AND MOVE; WILL NEED REINFORCEMENT; CALL LIGHT IS IN REACH; WILL CONTINUE TO MONITOR.
--- NOTE | 2018-10-14 04:32 | NUR ---
VS OBTAINED; NO DISTRESS NOTED; DENIES NEEDS; CALL LIGHT IS IN REACH; WILL CONTINUE TO MONITOR.
[2018-10-14 05:30] LABS: HEMATOCRIT 23.1 % (37.0-47.0); HEMOGLOBIN 8.3 g/dl (12.0-16.0); IMMATURE GRANULOCYTES 1.8 % (0.0-5.0); MEAN CELL VOLUME 79.4 fL CALC (80.0-100.0); MEAN CORPUSCULAR HGB 28.5 pG CALC (26.0-32.0); MEAN CORPUSCULAR HGB CONC 35.9 g/L CALC (32.0-36.0); NEUT# 5.52 thou/uL (2.00-7.15); RED BLOOD COUNT 2.91 mill/uL (4.20-5.60); RED CELL DISTRI WIDTH 14.9 % (11.5-15.5)
[2018-10-14 05:49] LABS: MAGNESIUM 1.6 mg/dL (1.6-2.3); POTASSIUM 3.8 mmol/l (3.5-5.1)
--- NOTE | 2018-10-14 05:50 | NUR ---
[id number]- NEW IV STARTED DUE TO DATE EXPIRING ON OTHER SITE; NEW #22 GAUGE STARTED TO RH X1 ATTEMPT; IV SITE REMOVED TO RFA; CATHETER TIP INTACT; PT. CLEANED OF A SMALL INCONTINENCE OF URINE; NEW PAD PLACED UNDERNEATH; PT. IS OFFERED TO ATTEMPT TO VOID IN BSC AND DECLINES AT THIS TIME; MEDICATED WITH ORDERED PRN TYLENOL AND XANAX PER ORDER AND PT'S REQUEST; DENIES FURTHER NEEDS; CALL LIGHT IS IN REACH.
--- NOTE | 2018-10-14 07:05 | NUR ---
REPORT RECEIVED FROM ROYAL LANDERS;PT APPEARS TO BE SLEEPING IN SUPINE POSITION;RESPIRATIONS SHALLOW ON O2 @ 3L VIA NC;NO S/S OF DISTRESS NOTED;TELE MONITORING IN PLACE;FALL PRECAUTIONS NOTED WITH BED IN THE LOWEST POSITION AND CALL LIGHT IN REACH;WILL CONTINUE TO MONITOR
--- NOTE | 2018-10-14 08:50 | NUR ---
PT RESTING IN SUPINE POSITION, A&O X3;VS OBTAINED AND ASSESSMENT COMPLETED;PT DENIES ANY CURRENT PAIN,PAIN SCALE AND REPORTING EDUCATED;RESPIRATIONS SHALLOW ON O2 @ 3L VIA NC;I.S. AT BEDSIDE AND PT DEMONSTARTED USE AND ENCOURAGED USE 10X PER HOUR;ABDOMEN DISTENDED/SOFT ON PALPATION AND ACTIVE IN ALL 4 QUADRANTS;STRONG PEDAL PULSES;SKIN INTACT;#22G TO RIGHT HAND INFUSING LR @ KVO WITH EASE;TELE MONITORING IN PLACE;PT DENIES ANY ADDITIONAL NEEDS AT THIS TIME AND IS ENCOURAGED TO CALL FOR ASSISTANCE IF NEEDED;CALL LIGHT IN REACH;WILL CONTINUE TO MONITOR
--- NOTE | 2018-10-14 11:45 | NUR ---
PT RESTING IN SEMI FOWLERS POSITION WITH VISITOR AT BEDSIDE;PT DENIES ANY CURRENT PAIN OR NEEDS;IV FLUIDS INFUSING TO KVO PER ORDER;TELE MONITORING IN PLACE;RESPIRATIONS EVEN AND UNLABORED ON O2 @ 3L VIA NC;ACCUCHECK 137, NO COVERAGE NEEDED;ENCOURAGED TO INCREASE PO INTAKE;ASSESSMENT REMAINS UNCHANGED AT THIS TIME;FALL PRECAUTIONS IN PLACE WITH CALL LIGHT IN REACH;WILL CONTINUE TO MONITOR
--- NOTE | 2018-10-14 13:53 | NUR ---
AT BEDSIDE DISCUSSING POC, INCLUDING PT CONSULT.
--- NOTE | 2018-10-14 16:19 | NUR ---
PT RESTING IN SUPINE POSITION;RESPIRATIONS EVEN AND UNLABORED ON RA;PT DENIES ANY CURRENT PAIN OR NEEDS;IV FLUIDS CONTINUE TO INFUSE TO RIGHT HAND;TELE MONITORING IN PLACE;ENCOURAGED PT TO EXPRESS ANY NEEDS OR CONCERNS;FALL PRECAUTIONS IN PLACE WITH CALL LIGHT IN REACH;WILL CONTINUE TO MONITOR
--- NOTE | 2018-10-14 18:14 | NUR ---
PT CURRENT BP 170/89 HR 99, PT MEDICATED WITH PRN APRESOLINE 10MG IVP BY ROYAL MCKEON;WILL MONITOR FOR EFFECT.
--- NOTE | 2018-10-14 18:32 | NUR ---
BP RE-CHECK 147/71 HR 91
--- NOTE | 2018-10-14 19:10 | NUR ---
PT. RESTING IN BED ON LEFT SIDE WITH EYES OPEN; FAMILY IS AT BEDSIDE; NO DISTRESS NOTED; ASSESSMENT COMPLETED; B/P SLIGHTLY ELEVATED; WILL AMDINISTER PO PM B/P MEDS SHORTLY; PT. DENIES NEEDS/PAIN; ENCOURAGED TO CALL FOR ANY NEEDS AND USE INCENTIVE SPIROMETER; VERBALIZES UNDERSTANDING.
--- NOTE | 2018-10-14 20:29 | NUR ---
PT. REQUESTS ALL PM MEDS AT THIS TIME WELL PRN XANAX AND TYLENOL SHE IS READY FOR BED AT THIS TIME; MEDICATED AT THIS TIME; PT. IS INCONTINENT OF LARGE INCONTINENCE OF URINE; PT. AGAIN IS ENCOURAGED TO GET OOB TO VOID SHE KNOWS WHEN SHE NEEDS TO; VERBALIZES UNDERSTANDING; PT. REPORTS SHE DOES NOT HAVE TO GO ANYMORE NOW; PT. PROVIDED HERSELF WITH DENISSE CARE; THIS FILM PROCESSOR CHANGED TOP LINENS, GOWN, AND UNDERNEATH PADS; PT. ABLE TO REPOSITION SELF IN BED AND IS ENCOURAGED TO DO SO WELL TO USE INCENTIVE SPIROMETER; SPO2 95% ON RA; PT. DID DRINK ALL OF HER GRAPE JUICE AND ORDERED INSULIN PROVIDED FOR BS; INSTRUCTED TO CALL FOR ANY NEEDS; CALL LIGHT IS IN REACH; WILL CONTINUE TO MONITOR.
--- NOTE | 2018-10-14 22:15 | NUR ---
PT. UP TO BSC TO VOID AT THIS TIME WITH STBY ASSISTANCE AND PT. BACK INTO BED; DENIES FURTHER NEEDS; CALL LIGHT IS IN REACH.
--- NOTE | 2018-10-14 23:25 | NUR ---
PT. RESTING IN BED ON RIGHT SIDE WITH EYES CLOSED; NO DISTRESS NOTED; AWAKENED FOR VS; VSS; NO DISTRESS NOTED;DENIES NEEDS/PAIN; PO FLUIDS ENCOURAGED; CALL LIGHT IS IN REACH; WILL CONTINUE TO MONITOR.
--- NOTE | 2018-10-15 02:10 | NUR ---
PT. RESTING IN BED WITH EYES CLOSED; RESP EVEN AND UNLABORED; CALL LIGHT IS IN REACH; WILL CONTINUE TO MONITOR.
[2018-10-15 03:37] VITALS: BP 159/75
--- NOTE | 2018-10-15 03:37 | NUR ---
PT. SLEEPING AND IS AWAKENED FOR AM VS; VSS; NO DISTRESS NOTED; O2 TITRATED DOWN TO 2LITERS/MIN PER NC; PT. IS ASSISTED UP TO BSC AND VOIDED 300MLS OF URINE AND HAD A SMALL BM. PT. IS ASSISTED WITH DENISSE CARE AND BACK INTO BED; PO FLUIDS OFFERED; DENIES NEEDS; CALL LIGHT IS IN REACH.
[2018-10-15 05:27] LABS: HEMATOCRIT 23.7 % (37.0-47.0); HEMOGLOBIN 8.5 g/dl (12.0-16.0); IMMATURE GRANULOCYTES 3.3 % (0.0-5.0); MEAN CELL VOLUME 79.3 fL CALC (80.0-100.0); MEAN CORPUSCULAR HGB 28.4 pG CALC (26.0-32.0); MEAN CORPUSCULAR HGB CONC 35.9 g/L CALC (32.0-36.0); NEUT# 7.37 thou/uL (2.00-7.15); RED BLOOD COUNT 2.99 mill/uL (4.20-5.60)
[2018-10-15 05:50] LABS: BILIRUBIN, TOTAL 0.4 mg/dL (0.0-1.4); CREATININE 2.9 mg/dL (0.5-1.0); MAGNESIUM 1.7 mg/dL (1.6-2.3)
[2018-10-15 05:54] LABS: ALBUMIN 3.6 g/dL (3.2-5.0); POTASSIUM 4.6 mmol/l (3.5-5.1); TOTAL PROTEIN 7.4 g/dL (6.3-8.2)
--- NOTE | 2018-10-15 07:05 | NUR ---
REPORT RECEIVED FROM ROYAL LANDERS;PT APPEARS TO BE SLEEPING IN SUPINE POSITION;NO S/S OF DISTRESS NOTED;RESPIRATIONS EVEN AND UNLABORED ON O2 @ 2L VIA NC;TELE MONITORING IN PLACE;FALL PRECAUTIONS NOTED WITH BED IN THE LOWEST POSITION AND CALL LIGHT IN REACH;WILL CONTINUE TO MONITOR
--- NOTE | 2018-10-15 08:00 | NUR ---
PT RESTING IN SEMI FOWLERS POSITION, A&O X3;VS OBTAINED AND ASSESSMENT COMPLETED;PT DENIES ANY CURRENT PAIN OR DISCOMFORTS,PAIN SCALE AND REPORTING EDUCATED;RESPIRATIONS EVEN AND UNLABORED ON O2 @ 2L VIA NC;ABDOMEN DISTENDED/SOFT ON PALPATION AND ACTIVE IN ALL 4 QUADRANTS;STRONG PEDAL PULSES;SKIN INTACT;#22G TO RIGHT HAND INFUSING LR @ KVO PER ORDER,SITE APPEARS HEALTHY;TELE MONITORING IN PLACE;ACCUCHECK 204, PT COVERED WITH NOVOLOG SLIDING SCALE PER ORDER;PT DENIES ANY ADDITIONAL NEEDS AND IS ENCOURAGED TO CALL FOR ASSISTANCE IF NEEDED;FALL PRECAUTIONS IN PLACE WITH CALL LIGHT IN REACH;WILL CONTINUE TO MONITOR
[2018-10-15 08:03] VITALS: BP 188/80
[2018-10-15 09:30] VITALS: BP 175/72
--- NOTE | 2018-10-15 09:30 | NUR ---
BP RE-CHECK 175/72
[2018-10-15 10:55] VITALS: BP 157/76
--- NOTE | 2018-10-15 11:30 | NUR ---
PT OOB RESTING IN RECLINER TALKING WITH AFIACAN CLOSING MACHINE TENDER;RESPIRATIONS EVEN AND UNLABORED ON O2 @ 2L VIA NC;PT DENIES ANY CURRENT PAIN OR DISCOMFORTS;TELE MONITORING IN PLACE;ACCUCHECK WAS 235, PT WAS COVERED WITH SLIDING SCALE INSULIN PER ORDER;PT EXPRESSES WISHES TO GO HOME STATING "IF THE DOCTOR LETS ME GO OR NOT IM GOING HOME",PT RE-ASSURED THAT MD WOULD BE MAKING ROUNDS SHORTLY AND THAT ALL OF HER QUESTIONS WOULD BE ADDRESSED;ASSESSMENT REMAINS UNCHANGED AT THIS TIME;ENCOURAGED TO CALL FOR ASSISTANCE IF NEEDED;FALL PRECAUTIONS IN PLACE WITH CALL LIGHT IN REACH;WILL CONTINUE TO MONITOR
--- NOTE | 2018-10-15 12:12 | NUR ---
AT BEDSIDE DISCUSSING POC.
--- NOTE | 2018-10-15 12:15 | NUR ---
STAT EKG TO BE PERFORMED PER FOR RHYTHM CHANGE REPORTED BY .
--- NOTE | 2018-10-15 12:32 | NUR ---
EKG PERFORMED BY RT YENNY;EKG RESULTED IN SINUS RHYTHM WITH PREMATURE ATRIAL COMPLEXS WITH A RATE OF 98. NOTIFIED.
--- NOTE | 2018-10-15 13:15 | NUR ---
PT REPORTS THAT SHE WANTS TO LEAVE AMA, EDUCATED ON RISKS OF LEAVING AGAINST MEDICAL ADVICE AND PT VERBALIZES UNDERSTANDING, MD TO BE NOTIFIED.
--- NOTE | 2018-10-15 13:25 | NUR ---
AMA FORM SIGNED, IV SITE REMOVED WITH CATHETER INTACT;PT AWAITING FRIEND FOR TRANSPORTATION HOME.
--- NOTE | 2018-10-15 13:48 | NUR ---
PT LEFT AMA VIA WHEELCHAIR IN STABLE CONDITION ACCOMPANIED BY FAMILY MEMBER AND AMANDA HURST.
--- NOTE | 2018-10-15 16:22 | NUR ---
1422: PATIENT DISCHARGED AMA PRIOR TO PHYSICAL THERAPY EVALUATION.
== END 2018-10-15 13:46 | disposition left against medical advice (07) ==
LOC: ED 19:35 → ED-I 22:33 → ED 22:46 → ICU 22:47 → MS2 10-12 14:06
PROVIDERS: Emergency Medicine; Internal Medicine; Nurse Practitioner Family; ADMIT Internal Medicine; ATTEND Internal Medicine Nephrology
DX: I16.1 Hypertensive emergency (principal); I12.9 Hypertensive chronic kidney disease with stage 1 through stage 4 chronic kidney disease, or unspecified chronic kidney disease; E11.22 Type 2 diabetes mellitus with diabetic chronic kidney disease; N18.4 Chronic kidney disease, stage 4 (severe); E11.21 Type 2 diabetes mellitus with diabetic nephropathy; E11.51 Type 2 diabetes mellitus with diabetic peripheral angiopathy without gangrene; J44.9 Chronic obstructive pulmonary disease, unspecified; B19.20 Unspecified viral hepatitis C without hepatic coma; R19.7 Diarrhea, unspecified; R11.2 Nausea with vomiting, unspecified; K21.9 Gastro-esophageal reflux disease without esophagitis; I25.10 Atherosclerotic heart disease of native coronary artery without angina pectoris; D64.9 Anemia, unspecified; E87.2 Acidosis; E78.5 Hyperlipidemia, unspecified; G89.29 Other chronic pain; T46.5X6A Underdosing of other antihypertensive drugs, initial encounter; F17.200 Nicotine dependence, unspecified, uncomplicated; Z95.820 Peripheral vascular angioplasty status with implants and grafts; Z95.828 Presence of other vascular implants and grafts; Z91.128 Patient's intentional underdosing of medication regimen for other reason; Z79.02 Long term (current) use of antithrombotics/antiplatelets
CPT/HCPCS: G0378; J0692; S0164

== ENCOUNTER 2019-05-23 19:07 | Emergency (ER) | payer OTHER ==
[~2019-05-23] VITALS: Ht 165.1 cm; Wt 62.0 kg
[~2019-05-23 19:07] MED LIST changes: +ALDACTONE50 MG PO
[2019-05-23 19:35] LABS: HEMATOCRIT 26.6 % (37.0-47.0); HEMOGLOBIN 9.4 g/dl (12.0-16.0); IMMATURE GRANULOCYTES 0.5 % (0.0-5.0); MEAN CELL VOLUME 81.3 fL CALC (80.0-100.0); MEAN CORPUSCULAR HGB 28.7 pG CALC (26.0-32.0); MEAN CORPUSCULAR HGB CONC 35.3 g/L CALC (32.0-36.0); NEUT# 11.61 thou/uL (2.00-7.15); RED BLOOD COUNT 3.27 mill/uL (4.20-5.60); RED CELL DISTRI WIDTH 14.9 % (11.5-15.5)
[2019-05-23 19:45] LABS: POTASSIUM 4.9 mmol/l (3.5-5.1); TOTAL PROTEIN 8.6 g/dL (6.3-8.2)
[2019-05-23 19:51] LABS: ALBUMIN 4.4 g/dL (3.2-5.0); BILIRUBIN, TOTAL 0.7 mg/dL (0.0-1.4); CREATININE 4.2 mg/dL (0.5-1.0)
[2019-05-23 19:59] LABS: PROTHROMBIN TIME 10.4 SECONDS (9.0-12.5)
[2019-05-23 22:51] VITALS: BP 174/91
== END 2019-05-23 22:45 ==
LOC: ED 19:07
PROVIDERS: Emergency Medicine
DX: I12.0 Hypertensive chronic kidney disease with stage 5 chronic kidney disease or end stage renal disease (principal); E11.22 Type 2 diabetes mellitus with diabetic chronic kidney disease; N18.6 End stage renal disease; J81.1 Chronic pulmonary edema

== ENCOUNTER 2019-06-24 | Emergency (ER) | payer OTHER ==
[2019-06-24 02:01] LABS: HEMATOCRIT 29.9 % (37.0-47.0); HEMOGLOBIN 10.2 g/dl (12.0-16.0); IMMATURE GRANULOCYTES 0.5 % (0.0-5.0); MEAN CORPUSCULAR HGB 30.1 pG CALC (26.0-32.0); MEAN CORPUSCULAR HGB CONC 34.1 g/L CALC (32.0-36.0); NEUT# 6.07 thou/uL (2.00-7.15); RED BLOOD COUNT 3.39 mill/uL (4.20-5.60); RED CELL DISTRI WIDTH 16.3 % (11.5-15.5)
[2019-06-24 02:04] LABS: MEAN CELL VOLUME 88.2 fL CALC (80.0-100.0)
[2019-06-24 02:18] LABS: ALBUMIN 4.4 g/dL (3.2-5.0); BILIRUBIN, TOTAL 0.5 mg/dL (0.0-1.4); CREATININE 4.5 mg/dL (0.5-1.0); TOTAL PROTEIN 8.6 g/dL (6.3-8.2)
[2019-06-24 02:20] LABS: POTASSIUM 5.5 mmol/l (3.5-5.1)
[2019-06-24 03:47] LABS: URINE BILIRUBIN - DIPSTICK NEGATIVE (NEGATIVE); URINE BLOOD DIPSTICK TRACE-INTACT (NEGATIVE); URINE COLOR YELLOW; URINE GLUCOSE - DIPSTICK NEGATIVE (NEGATIVE); URINE KETONE NEGATIVE (NEGATIVE); URINE LEUK ESTERASE NEGATIVE (NEGATIVE); URINE NITRITE - DIPSTICK NEGATIVE (Negative); URINE PH 5.5 (4.5-8.0); URINE PROTEIN - DIPSTICK 30 mg/dL (NEG-TRACE); URINE UROBILINOGEN - DIPSTICK 0.2 E.U./dL (0.2)
[2019-06-24 04:03] LABS: URINE BACTERIA MODERATE hpf; URINE EPITHELIAL CELLS FEW EPI/hpf (0-FEW)
== END 2019-06-24 06:22 | disposition short-term general hospital (02) ==
PROVIDERS: Emergency Medicine
DX: I12.0 Hypertensive chronic kidney disease with stage 5 chronic kidney disease or end stage renal disease (principal); J81.1 Chronic pulmonary edema; E11.22 Type 2 diabetes mellitus with diabetic chronic kidney disease; N18.6 End stage renal disease; Z99.2 Dependence on renal dialysis; Z95.5 Presence of coronary angioplasty implant and graft; R82.71 Bacteriuria

== ENCOUNTER 2019-07-22 14:32 | Observation (INO) | payer OTHER ==
[~2019-07-22] VITALS: Ht 165.1 cm; Wt 65.0 kg
--- NOTE | 2019-07-22 14:46 | NUR ---
PT SENT TO WAITING ROOM, ADVISED OF BUSY ER STATUS.
--- NOTE | 2019-07-22 15:00 | NUR ---
PT AMBULATORY TO STRETCHER WITH MINIMAL ASSISTANCE. PT AO X 3. SKIN PINK WARM AND DRY. RESP EVEN AND UNLABORED. PT REPORTS FEELING DIZZY AND HAVING HIGH BLOOD PRESSURE. DID NOT TAKE HTN MED THIS AM BEFORE DIALYSIS TREATMNET.
[2019-07-22 15:43] LABS: HEMATOCRIT 30.6 % (37.0-47.0); HEMOGLOBIN 10.8 g/dl (12.0-16.0); IMMATURE GRANULOCYTES 0.4 % (0.0-5.0); MEAN CELL VOLUME 86.2 fL CALC (80.0-100.0); MEAN CORPUSCULAR HGB 30.4 pG CALC (26.0-32.0); MEAN CORPUSCULAR HGB CONC 35.3 g/L CALC (32.0-36.0); NEUT# 2.54 thou/uL (2.00-7.15); RED BLOOD COUNT 3.55 mill/uL (4.20-5.60); RED CELL DISTRI WIDTH 14.9 % (11.5-15.5)
--- NOTE | 2019-07-22 15:57 | NUR ---
PT POSITIONED FOR COMFORT. WARM BLANKET GIVEN.
--- NOTE | 2019-07-22 16:00 | NUR ---
BP 200/100 AFTER LABETALOL. NTG DRIP ORDERED. PT MADE AWARE OF NEED TO CHANGE MEDICATION FOR BP
[2019-07-22 16:05] LABS: ALBUMIN 4.8 g/dL (3.2-5.0); BILIRUBIN, TOTAL 1.1 mg/dL (0.0-1.4); CREATININE 2.3 mg/dL (0.5-1.0); POTASSIUM 4.9 mmol/l (3.5-5.1); TOTAL PROTEIN 9.3 g/dL (6.3-8.2)
--- NOTE | 2019-07-22 16:20 | NUR ---
NTG DRIP STARTED AT 5MCG/MIN BP 223/101. 1654 NTG INCREASED TO 10 MCG/MIN FOR BP 230/101 1659 NTG INCREASE TO 15 MCG/MIN FOR BP 227/101 1718 NTG INCREASED TO 20 MCG/MIN FOR BP 210/95 1723 BP 195/86 WILL CONTINUE TO MONITOR PT. \ PT AWAKE, ALERT, RESTING ON STRETCHER, TALKING ON PHONE.
--- NOTE | 2019-07-22 17:31 | NUR ---
PT GIVEN ADDITIONAL WARM BLANKETS AND POSITIONED FOR COMFORT
--- NOTE | 2019-07-22 17:43 | NUR ---
BP 202/91 NTG INCREASE TO 25MCG/MIN
--- NOTE | 2019-07-22 17:55 | NUR ---
PAGE PLACED TO DR MEJIA TO INFORM OF BP
--- NOTE | 2019-07-22 18:28 | NUR ---
PT RESTING QUIETLY ON STRETCHER. NO COMPLAINTS
--- NOTE | 2019-07-22 18:44 | NUR ---
CALL PLACED TO ICU. NO ANSWER AT THIS TIME. UNABLE TO GIVE REPORT. PT GIVEN JOSE LUIS ZARINA AND ICE PER HER REQUEST
[2019-07-22] MEDS ORDERED: NEURONTIN300 MG PO (19:14)
[2019-07-22] MEDS ORDERED: HYDRALAZINE HC100 MG PO (19:31)
[2019-07-22] MEDS ORDERED: CATAPRES0.3 MG PO (19:32)
[2019-07-22] MEDS ORDERED: VITAMIN D1000 UNI1 PO (19:34)
--- NOTE | 2019-07-22 20:15 | NUR ---
PT. ARRIVES BY STRETCHER FROM ER. AMBULATORY FROM ER STRETCHER TO ICU BED. PT. AMBULATORY WITHOUT ASSIST. ARRIVES WITH EMPTY 250 ML NS BAG AND NITRO DRIP INFUSING AT 25 MCG. RESPS EVEN AND UNLABORED. LUNGS CTA, DIMINISHED BASES. DISTIL PULSES INTACT. BOWEL SOUNDS ACTIVE. AFEBRILE ON ARRIVAL TO UNIT. VOICES NO COMPLAINTS OR NEEDS AT THIS TIME. S1, S2. SINUS RHYTHM ON ARRIVAL. PT. REPORTS SHE TOOK HER LISINOPRIL AT 4AM ALONG WITH ONE CLONIDINE, BUT DID NOT TAKE ANY MORE CLONIDINE THROUGHOUT THE DAY. REPORTS MILD GENERALIZED WEAKNESS. PT. STATES THATS NORMAL AFTER DIALYSIS.
[2019-07-22 20:30] VITALS: BP 182/80
[2019-07-22 20:45] VITALS: BP 189/82
[2019-07-22 21:00] VITALS: BP 166/72
--- NOTE | 2019-07-22 21:30 | NUR ---
NITRO DRIP DECREASED TO 15 MCG AT THIS TIME. PT. REPORTS 12/02 HEADACHE. MEDICATED PER PHYSICIAN ORDERS. PT. DENIES OTHER COMPLAINTS OR NEEDS AT THIS TIME. CALL LIGHT REMAINS WITHIN REACH. VOICES NO OTHER COMPLAINTS OR NEEDS.
[2019-07-22 22:00] VITALS: BP 178/78
--- NOTE | 2019-07-22 22:30 | NUR ---
PT. REQUESTING MEDICATION FOR SLEEP. NEW ORDERS RECIEVED AT THIS TIME. WILL MEDICATE ORDERS. PT. STATES HER HEADACHE IS IMPROVED. REMAINS ON 15 MCG NITRO AT THIS TIME.
[2019-07-22 23:00] VITALS: BP 190/81
[2019-07-23] VITALS (26 sets, daily range): BP systolic 150–189; BP diastolic 61–85
--- NOTE | 2019-07-23 00:14 | NUR ---
PT. RESTING IN BED IN NO DISTRESS. RESPS REMAIN EVEN AND UNLABORED. BP REMAINS ELEVATED AT 179 SYSTOLIC. WILL MEDICATE ORDERED.
--- NOTE | 2019-07-23 02:10 | NUR ---
PT. RESTING IN BED ON LT. SIDE IN NO DISTRESS. PT. VOICES NO COMPLAINTS OR NEEDS AT THIS TIME. REMAINS SINUS ON THE MONITOR WITH PAC'S. PT. REMAINS STABLE WITH NITRO DRIP INFUSING AT 15 MCG AT THIS TIME.
--- NOTE | 2019-07-23 04:00 | NUR ---
PT. REMAINS RESTING IN BED WITH EYES CLOSED IN NO DISTRESS. RESPS EVEN AND UNLABORED. POSITIONED ON HER LT. SIDE. IV NITRO INFUSING DIRECTED. BP REMAINS SLIGHTLY ELEVATED. WILL CONTINUE TO MONITOR.
--- NOTE | 2019-07-23 04:49 | NUR ---
LAB AT BEDSIDE TO DRAW PATIENT. SHE REMAINS EASILY AROUSABLE TO LIGHT VERBAL STIMULI. CALL LIGHT REMAINS WITHIN REACH. WILL CONTINUE TO CLOSELY MONITOR.
--- NOTE | 2019-07-23 05:15 | NUR ---
PT. ASSISTED TO BSC AT THIS TIME. REMAINS STABLE ON THE MONITOR. NITRO DRIP CONTINUES AT 15 MCG AT THIS TIME. BP REMAINS ELEVATED.
[2019-07-23 05:29] LABS: HEMATOCRIT 28.3 % (37.0-47.0); IMMATURE GRANULOCYTES 0.3 % (0.0-5.0); MEAN CELL VOLUME 86.8 fL CALC (80.0-100.0); MEAN CORPUSCULAR HGB 30.7 pG CALC (26.0-32.0); MEAN CORPUSCULAR HGB CONC 35.3 g/L CALC (32.0-36.0); NEUT# 3.65 thou/uL (2.00-7.15); RED BLOOD COUNT 3.26 mill/uL (4.20-5.60); RED CELL DISTRI WIDTH 14.4 % (11.5-15.5)
--- NOTE | 2019-07-23 05:40 | NUR ---
PT. BP NOW 189/85. NITRO DRIP INCREASED BACK TO 25 MCG AT THIS TIME. CALL LIGHT REMAINS WITHIN REACH. PT. VOICES NO OTHER COMPLAINTS OR NEEDS AT THIS TIME.
--- NOTE | 2019-07-23 07:40 | NUR ---
PT RESTING IN BED ALERT AND ORIENTED; PT. AMBULATORY WITHOUT ASSIST. NITRO DRIP CONTINUES INFUSING AT 25 MCG. RESPS EVEN AND UNLABORED. LUNGS CTA, DIMINISHED BASES. DISTAL PULSES INTACT. BOWEL SOUNDS ACTIVE. VOICES NO COMPLAINTS OR NEEDS AT THIS TIME. REMAINS SINUS RHYTHM ON MONIITOR MINIMAL GENERALIZED WEAKNESS PER PT BUT . PT. STATES THATS NORMAL AFTER DIALYSIS AND IS IMPROVED THIS AM. ASKING ABOUT D/C EDUCATED REGARDING D/C PLAN AND PROCESS VERBALIZES UNDERSTANDDING
--- NOTE | 2019-07-23 08:00 | NUR ---
TOLERATED MINIMAL AM MEAL, DENIES BEING HUNGRY BUT ALSO DENIES NAUSEA, CALL MACHADO WITHIN REACH
--- NOTE | 2019-07-23 09:05 | NUR ---
OOB TO BSC, ATTEMPTING TO WEAN NITRO GTT WILL MONITOR TOLERANCE, CALL MACHADO WITHIN REACH
--- NOTE | 2019-07-23 10:21 | NUR ---
PT OOB TO BEDSIDE COMMODE INDEPENDENTLY WITH STEADY GAIT. TESSIO CATH INTACT IN R CHEST WALL. DIALYSIS COMPLETED YESTERDAY. WILL CONTINUE TO MONITOR
--- NOTE | 2019-07-23 11:45 | NUR ---
PT RESTING ASKING ABOUT D/C NITRO GTT REMAINS OFF SINCE [address] GOOD TOLERANCE BY PT, IV SITES REMAIN INTACT, CALL [facility] WITHIN REACH
--- NOTE | 2019-07-23 13:30 | NUR ---
PT RESTING EYES CLOSED, RESPS EVEN AND UNLABORED, BP REMAINS STABLE, PLANNING D/C AT DINNER TIME PT AWARE
--- NOTE | 2019-07-23 14:40 | NUR ---
PT RESTING ASKING ABOUT D/C EDUCATED REGARDING CONVERSATION WITH SHAI CALI AND PLAN FOR DINNER TIME, PT VERBALIZES UNDERSTANDING
--- NOTE | 2019-07-23 15:48 | NUR ---
PT AGGRAVATED ASKING AGAIN WHEN SHE WILL BE DISCHARGED CALL [facility] WITHIN REACH
--- NOTE | 2019-07-23 16:20 | NUR ---
REPORT RECEIVED FROM ROYAL TATUM.
--- NOTE | 2019-07-23 16:40 | NUR ---
PT FREQUENTLY ASKING WHEN DR GIBBONS WILL BE BACK TO D/C HER. PT REPEATEDLY ADVISED MD WILL NOT BE BACK UNTIL AFTER OFFICE HOURS. PT STATES "SHE GETS TRAPPED EVERYTIME SHE COMES TO [place]." ALSO, "IF SHE DOESNT GET DISCHARGED BY 6PM SHE IS JUST GOING TO LEAVE". PTS RN AWARE.
--- NOTE | 2019-07-23 17:55 | NUR ---
DR. GIBBONS AT BEDSIDE TO DISCUSS DISCHARGE PLANS.
[2019-07-23] MEDS ORDERED: NIFEDIPINE ER30 M1 PO (17:56)
--- NOTE | 2019-07-23 18:43 | NUR ---
Discharge instructions given. Patient verbalizes understanding of same. Discharged in stable condition via Wheelchair to Home with staff. All belongings sent with pt.
== END 2019-07-23 18:37 | disposition home or self-care (01) ==
LOC: ED 14:32 → ED-I 17:00 → ED 17:15 → ICU 17:16
PROVIDERS: Family Medicine; Internal Medicine; ADMIT Internal Medicine; ATTEND Internal Medicine
DX: I16.0 Hypertensive urgency (principal); I12.0 Hypertensive chronic kidney disease with stage 5 chronic kidney disease or end stage renal disease; E11.22 Type 2 diabetes mellitus with diabetic chronic kidney disease; N18.6 End stage renal disease; I25.10 Atherosclerotic heart disease of native coronary artery without angina pectoris; B19.20 Unspecified viral hepatitis C without hepatic coma; Z99.2 Dependence on renal dialysis; Z95.5 Presence of coronary angioplasty implant and graft; J44.9 Chronic obstructive pulmonary disease, unspecified

== ENCOUNTER 2019-09-08 | Emergency (ER) | payer OTHER ==
[~2019-09-08] MED LIST changes: +CATAPRES0.3 MG PO; +HYDRALAZINE HC100 MG PO; +NEURONTIN300 MG PO; +NIFEDIPINE ER30 M1 PO; +VITAMIN D1000 UNI1 PO
[2019-09-08 14:54] LABS: HEMATOCRIT 31.4 % (37.0-47.0); IMMATURE GRANULOCYTES 0.4 % (0.0-5.0); MEAN CELL VOLUME 85.3 fL CALC (80.0-100.0); MEAN CORPUSCULAR HGB 29.9 pG CALC (26.0-32.0); NEUT# 6.32 thou/uL (2.00-7.15); RED BLOOD COUNT 3.68 mill/uL (4.20-5.60); RED CELL DISTRI WIDTH 14.4 % (11.5-15.5)
[2019-09-08 15:24] LABS: ALBUMIN 4.3 g/dL (3.2-5.0); CREATININE 3.1 mg/dL (0.5-1.0); POTASSIUM 3.8 mmol/l (3.5-5.1); TOTAL PROTEIN 7.8 g/dL (6.3-8.2)
[2019-09-08 15:31] LABS: BILIRUBIN, TOTAL 0.5 mg/dL (0.0-1.4)
[2019-09-08] MEDS ORDERED: LISI20TA5 PO (17:59)
--- NOTE | 2019-09-10 14:23 | NUR ---
PT BLOOD CULTURE SHOWS GRAM POSITIVE COCCI IN 1/4 BOTTLES. TRIED CALLING PT 2X TO SEE HOW SHE IS FEELING AND FIND OUT WHO HER PCP IS TO CONTACT WITH PRELIM RESULTS. NO ANSWER, LEFT VM. WILL F/U TOMORROW 09/10
--- NOTE | 2019-09-11 15:31 | NUR ---
BLOOD CULTURE SHOWS STAPH HOMINIS IN [address] VILLANUEVA, STATES LIKELY A CONTAMINANT. TRIED TO CALL PT TO FOLLOW UP, LEFT SANDY 09/10 TO CALL BACK.
== END 2019-09-08 18:55 | disposition home or self-care (01) ==
DX: I13.2 Hypertensive heart and chronic kidney disease with heart failure and with stage 5 chronic kidney disease, or end stage renal disease (principal); E11.22 Type 2 diabetes mellitus with diabetic chronic kidney disease; N18.6 End stage renal disease; B34.9 Viral infection, unspecified; T46.4X6A Underdosing of angiotensin-converting-enzyme inhibitors, initial encounter; Z91.128 Patient's intentional underdosing of medication regimen for other reason; Z99.2 Dependence on renal dialysis

== ENCOUNTER 2019-10-06 | Emergency (ER) | payer OTHER ==
[~2019-10-06] MED LIST changes: +LISI20TA5 PO
--- NOTE | 2019-10-06 19:18 | NUR ---
PT WHEELED STRAIGHT BACK TO ROOM 8 AND TRIAGED.
--- NOTE | 2019-10-06 19:31 | NUR ---
PT. TO ROOM 8 WITH C/O SOB AND CONSTIPATION STARTING THIS AM. AT BEDSIDE.
--- NOTE | 2019-10-06 19:32 | NUR ---
DIALYSIS CATH TO [facility]. PT. STATES SHE HAS DIALYSIS . . SUNDAY.
--- NOTE | 2019-10-06 19:35 | NUR ---
PER DR COSBY PT DOES NOT NEED [employer] PRECAUTIONS TO R/O COVID-19
[2019-10-06] MEDS ORDERED: AMLODIPINE BESY10 MG PO (19:46)
[2019-10-06 20:11] LABS: HEMATOCRIT 30.1 % (37.0-47.0); HEMOGLOBIN 10.4 g/dl (12.0-16.0); IMMATURE GRANULOCYTES 0.4 % (0.0-5.0); MEAN CELL VOLUME 85.8 fL CALC (80.0-100.0); MEAN CORPUSCULAR HGB 29.6 pG CALC (26.0-32.0); MEAN CORPUSCULAR HGB CONC 34.6 g/dL CAL (32.0-36.0); NEUT# 5.52 thou/uL (2.00-7.15); RED BLOOD COUNT 3.51 mill/uL (4.20-5.60); RED CELL DISTRI WIDTH 14.6 % (11.5-15.5)
[2019-10-06 20:27] LABS: PROTHROMBIN TIME 10.4 SECONDS (9.0-12.5)
[2019-10-06 20:28] LABS: ALBUMIN 4.6 g/dL (3.2-5.0); BILIRUBIN, TOTAL 0.7 mg/dL (0.0-1.4); CREATININE 3.5 mg/dL (0.5-1.0); POTASSIUM 4.3 mmol/l (3.5-5.1)
--- NOTE | 2019-10-06 20:38 | NUR ---
IV HYDRALAZINE GIVEN PER MD ORDER.
--- NOTE | 2019-10-06 20:39 | NUR ---
2 LIT/NC APPLIED PT. O2 SAT 88% MD AWARE.
--- NOTE | 2019-10-06 20:56 | NUR ---
O2 SAT NOW 92% ON 2 LIT. NC.
--- NOTE | 2019-10-06 21:31 | NUR ---
MD IN ROOM TO DISCUSS CLINICAL FINDINGS WITH PT. AND ALSO MAKE PT. AWARE OF ADMISSION. VERBALIZED UNDERSTANDING.
--- NOTE | 2019-10-06 21:42 | NUR ---
IV LASIX GIVEN PER MD ORDER.
--- NOTE | 2019-10-06 22:04 | NUR ---
PUR-WICK CATH APPLIED. O2 SAT 84% MD AWARE. RESP. THERAPIST CALLED. AT BEDSIDE.
[2019-10-06 22:30] LABS: CREATININE 3.2 mg/dL (0.5-1.0); POTASSIUM 4.3 mmol/l (3.5-5.1)
--- NOTE | 2019-10-06 22:31 | NUR ---
RESP. THERAPIST AT BEDSIDE TO OBTAIN ABG.
--- NOTE | 2019-10-06 22:37 | NUR ---
50% VM APPLIED PER RESP. THERAPIST.
--- NOTE | 2019-10-06 22:47 | NUR ---
PT. BP 196/81 CARDENE GTT INCREASED TO 7.5 MG/HR.
--- NOTE | 2019-10-06 23:47 | NUR ---
CARDENE GTT INCREASED TO 12.5 MG/HR.
--- NOTE | 2019-10-07 00:39 | NUR ---
PT. REFUSING TO WEAR ANY O2 STATING, " I REFUSE TO WEAR IT."
--- NOTE | 2019-10-07 00:44 | NUR ---
PT. STATING I WANT TO [facility], I NEED DIALYSIS IN THE AM. AWARE. CHARGE NURSE CALLING GUNSTOCK REPAIRER MD DR KHAN.
--- NOTE | 2019-10-07 00:50 | NUR ---
CALLED DR GIBBONS INFORMED OF PT REFUSING TO STAY WANTS TO GO TO [facility] BECAUSE SHE NEEDS DIALYSIS. PT IS SCHEDULED FOR THE MORNING. ORDER FOR TRANSFER TO [facility] RECEIVED
--- NOTE | 2019-10-07 01:04 | NUR ---
PT. C/O BACK PAIN ATTEMPTED TO TURN AND REPOSITION PT. PT. STATES, " I AM STILL UNCOMFORTABLE."
--- NOTE | 2019-10-07 01:20 | NUR ---
DR CHAVEZ DECLINED PT FOR TRANSFER. DR GIBBONS AWARE AND ORDER TO TRANSFER PT TO [facility] RECEIVED.
--- NOTE | 2019-10-07 01:25 | NUR ---
PO TYLENOL GIVEN PER MD ORDER, FOR C/O BACK PAIN.
--- NOTE | 2019-10-07 01:55 | NUR ---
PT. PLACED IN HOSPITAL BED FOR COMFORT. PT. STATES, " I FEEL SO MUCH BETTER NOW."
--- NOTE | 2019-10-07 02:00 | NUR ---
PT. AGREED TO WEAR VM NOW O2 SAT 95%.
--- NOTE | 2019-10-07 03:00 | NUR ---
PT. RESTING QUIETLY EYES CLOSED, NO C/O SOB OFFERED, NO C/O BACK PAIN OFFERED, AWAKENS EASILY. V/S STABLE.
--- NOTE | 2019-10-07 04:00 | NUR ---
PT. AWOKE QUESTIONED ABOUT HER TRANSFER PT. INSTRUCTED THAT WE ARE STILL AWAITING ACEPTANCE FROM [facility], PT. STATED, DAM IT ALREADY." REASSURANCE GIVEN TO PT.
--- NOTE | 2019-10-07 04:26 | NUR ---
PT. CONT. TO REST UNDISTURBED, IV CARDENE INFUSING WELLBP WNL, NO C/O SOB OFFERED, VM IN PLACE.
--- NOTE | 2019-10-07 05:00 | NUR ---
CONT. RESTING QUIETLY, NO C/O AT THIS TIME.
--- NOTE | 2019-10-07 06:07 | NUR ---
[facility] HERE TO TRANSFER PT. TO [facility], REPORT GIVEN.
--- NOTE | 2019-10-07 06:20 | NUR ---
PT. TRANSFERED TO [facility] VIA [facility].
--- NOTE | 2019-10-07 06:29 | NUR ---
Transfer Information Transferred To: [facility] Report Given to: KELVIN PAIGE Transported by: [facility] [employer] Other Transported with: Nurse X Transporter X Patent IV X O2 X Assistant Professor Of Geography
== END 2019-10-07 06:29 | disposition short-term general hospital (02) ==
PROVIDERS: Emergency Medicine; Internal Medicine
DX: I13.0 Hypertensive heart and chronic kidney disease with heart failure and stage 1 through stage 4 chronic kidney disease, or unspecified chronic kidney disease (principal); I16.1 Hypertensive emergency; I50.9 Heart failure, unspecified; E11.22 Type 2 diabetes mellitus with diabetic chronic kidney disease; N18.9 Chronic kidney disease, unspecified; N18.6 End stage renal disease; Z99.2 Dependence on renal dialysis; Z20.828 Contact with and (suspected) exposure to other viral communicable diseases

== ENCOUNTER 2020-04-02 19:58 | Emergency (ER) | payer OTHER ==
[~2020-04-02] VITALS: Ht 165.1 cm; Wt 68.2 kg
[~2020-04-02 19:58] MED LIST changes: +AMLODIPINE BESY10 MG PO
[2020-04-02 21:10] LABS: HEMATOCRIT 27.5 % (37.0-47.0); HEMOGLOBIN 9.4 g/dl (12.0-16.0); IMMATURE GRANULOCYTES 0.4 % (0.0-5.0); MEAN CORPUSCULAR HGB 29.7 pG CALC (26.0-32.0); MEAN CORPUSCULAR HGB CONC 34.2 g/dL CAL (32.0-36.0); NEUT# 6.9 thou/uL (2.00-7.15); RED BLOOD COUNT 3.16 mill/uL (4.20-5.60)
[2020-04-02 21:33] LABS: ALBUMIN 4.3 g/dL (3.2-5.0); POTASSIUM 4.8 mmol/l (3.5-5.1); TOTAL PROTEIN 8.3 g/dL (6.3-8.2)
[2020-04-02 21:39] LABS: BILIRUBIN, TOTAL 0.3 mg/dL (0.0-1.4); CREATININE 5.8 mg/dL (0.5-1.0)
[2020-04-02] MEDS ORDERED: CARVEDILOL25 MG PO (22:17)
[2020-04-02 22:35] VITALS: BP 134/70
== END 2020-04-02 22:35 | disposition left against medical advice (07) ==
LOC: ED 19:58
PROVIDERS: Family Medicine
DX: J81.1 Chronic pulmonary edema (principal); I12.0 Hypertensive chronic kidney disease with stage 5 chronic kidney disease or end stage renal disease; E11.22 Type 2 diabetes mellitus with diabetic chronic kidney disease; N18.6 End stage renal disease; Z99.2 Dependence on renal dialysis; Z91.15 Patient's noncompliance with renal dialysis; Z95.5 Presence of coronary angioplasty implant and graft; Z91.19 Patient's noncompliance with other medical treatment and regimen

== ENCOUNTER 2020-04-08 01:41 | Emergency (ER) | payer OTHER ==
[~2020-04-08] VITALS: Ht 165.1 cm; Wt 68.2 kg
[2020-04-08 02:37] LABS: HEMATOCRIT 25.9 % (37.0-47.0); HEMOGLOBIN 8.8 g/dl (12.0-16.0); IMMATURE GRANULOCYTES 0.9 % (0.0-5.0); MEAN CELL VOLUME 86.9 fL CALC (80.0-100.0); MEAN CORPUSCULAR HGB 29.5 pG CALC (26.0-32.0); NEUT# 8.95 thou/uL (2.00-7.15); RED BLOOD COUNT 2.98 mill/uL (4.20-5.60); RED CELL DISTRI WIDTH 14.1 % (11.5-15.5)
[2020-04-08 02:40] LABS: URINE BILIRUBIN - DIPSTICK NEGATIVE (NEGATIVE); URINE BLOOD DIPSTICK SMALL (NEGATIVE); URINE COLOR YELLOW; URINE GLUCOSE - DIPSTICK NEGATIVE (NEGATIVE); URINE KETONE NEGATIVE (NEGATIVE); URINE LEUK ESTERASE TRACE (NEGATIVE); URINE NITRITE - DIPSTICK NEGATIVE (Negative); URINE PROTEIN - DIPSTICK 100 mg/dL (NEG-TRACE); URINE UROBILINOGEN - DIPSTICK 0.2 E.U./dL (0.2)
[2020-04-08 02:41] LABS: ALBUMIN 4.3 g/dL (3.2-5.0); TOTAL PROTEIN 8.1 g/dL (6.3-8.2)
[2020-04-08 02:43] LABS: BILIRUBIN, TOTAL 0.6 mg/dL (0.0-1.4); CREATININE 4.3 mg/dL (0.5-1.0); POTASSIUM 3.8 mmol/l (3.5-5.1)
[2020-04-08 02:44] LABS: ACT PARTIAL THROMBO TIME 25.8 SECONDS (20.0-32.5); INTERNATIONAL NORMALIZED RATIO 1.1 RATIO (0.7-1.3); PROTHROMBIN TIME 10.6 SECONDS (9.0-12.5)
[2020-04-08 02:49] LABS: URINE BACTERIA FEW hpf; URINE SQUAMOUS EPITHELIAL CELL MANY EPI/hpf (0-FEW)
[2020-04-08 04:42] VITALS: BP 174/75
== END 2020-04-08 05:25 | disposition left against medical advice (07) ==
LOC: ED 01:41
DX: I16.1 Hypertensive emergency (principal); I13.2 Hypertensive heart and chronic kidney disease with heart failure and with stage 5 chronic kidney disease, or end stage renal disease; I50.9 Heart failure, unspecified; E11.22 Type 2 diabetes mellitus with diabetic chronic kidney disease; N18.6 End stage renal disease; K74.60 Unspecified cirrhosis of liver; F17.200 Nicotine dependence, unspecified, uncomplicated; Z99.2 Dependence on renal dialysis; Z95.5 Presence of coronary angioplasty implant and graft; Z91.19 Patient's noncompliance with other medical treatment and regimen

== ENCOUNTER 2020-04-12 22:54 | Emergency (ER) | payer OTHER ==
[~2020-04-12] VITALS: Ht 165.1 cm; Wt 68.2 kg
[2020-04-12 23:25] LABS: HEMATOCRIT 25.6 % (37.0-47.0); HEMOGLOBIN 8.7 g/dl (12.0-16.0); IMMATURE GRANULOCYTES 0.7 % (0.0-5.0); MEAN CELL VOLUME 86.2 fL CALC (80.0-100.0); MEAN CORPUSCULAR HGB 29.3 pG CALC (26.0-32.0); NEUT# 12.91 thou/uL (2.00-7.15); RED BLOOD COUNT 2.97 mill/uL (4.20-5.60); RED CELL DISTRI WIDTH 14.2 % (11.5-15.5)
[2020-04-12 23:33] LABS: ALBUMIN 4.4 g/dL (3.2-5.0); BILIRUBIN, TOTAL 0.6 mg/dL (0.0-1.4); CREATININE 4.6 mg/dL (0.5-1.0); POTASSIUM 3.9 mmol/l (3.5-5.1); TOTAL PROTEIN 8.6 g/dL (6.3-8.2)
[2020-04-12 23:37] LABS: INTERNATIONAL NORMALIZED RATIO 1.1 RATIO (0.7-1.3); PROTHROMBIN TIME 10.8 SECONDS (9.0-12.5)
[2020-04-13 02:29] VITALS: BP 147/67
== END 2020-04-13 03:00 ==
LOC: ED 22:54
DX: I16.1 Hypertensive emergency (principal); I13.2 Hypertensive heart and chronic kidney disease with heart failure and with stage 5 chronic kidney disease, or end stage renal disease; E11.22 Type 2 diabetes mellitus with diabetic chronic kidney disease; I50.9 Heart failure, unspecified; N18.6 End stage renal disease; J96.00 Acute respiratory failure, unspecified whether with hypoxia or hypercapnia; J18.9 Pneumonia, unspecified organism; F17.210 Nicotine dependence, cigarettes, uncomplicated; Z99.2 Dependence on renal dialysis; K74.60 Unspecified cirrhosis of liver; F32.9 Major depressive disorder, single episode, unspecified; Z95.5 Presence of coronary angioplasty implant and graft; Z91.19 Patient's noncompliance with other medical treatment and regimen; Z20.828 Contact with and (suspected) exposure to other viral communicable diseases

== ENCOUNTER 2020-04-21 22:58 | Emergency (ER) | payer OTHER ==
[~2020-04-21] VITALS: Ht 165.1 cm; Wt 68.2 kg
[2020-04-22 00:20] LABS: HEMATOCRIT 26.5 % (37.0-47.0); HEMOGLOBIN 8.9 g/dl (12.0-16.0); IMMATURE GRANULOCYTES 0.6 % (0.0-5.0); MEAN CORPUSCULAR HGB 28.9 pG CALC (26.0-32.0); MEAN CORPUSCULAR HGB CONC 33.6 g/dL CAL (32.0-36.0); NEUT# 4.1 thou/uL (2.00-7.15); RED BLOOD COUNT 3.08 mill/uL (4.20-5.60); RED CELL DISTRI WIDTH 14.4 % (11.5-15.5)
[2020-04-22 00:24] LABS: ALBUMIN 4.7 g/dL (3.2-5.0); BILIRUBIN, TOTAL 0.5 mg/dL (0.0-1.4); CREATININE 4.9 mg/dL (0.5-1.0); POTASSIUM 3.9 mmol/l (3.5-5.1); TOTAL PROTEIN 9.2 g/dL (6.3-8.2)
[2020-04-22 02:20] VITALS: BP 172/76
== END 2020-04-22 02:36 | disposition short-term general hospital (02) ==
LOC: ED 22:58
PROVIDERS: Emergency Medicine
DX: J18.9 Pneumonia, unspecified organism (principal); I16.1 Hypertensive emergency; I12.0 Hypertensive chronic kidney disease with stage 5 chronic kidney disease or end stage renal disease; E11.22 Type 2 diabetes mellitus with diabetic chronic kidney disease; N18.6 End stage renal disease; K74.60 Unspecified cirrhosis of liver; F32.9 Major depressive disorder, single episode, unspecified; F17.210 Nicotine dependence, cigarettes, uncomplicated; Z99.2 Dependence on renal dialysis; Z95.5 Presence of coronary angioplasty implant and graft; Z20.828 Contact with and (suspected) exposure to other viral communicable diseases

== ENCOUNTER 2020-04-29 06:50 | Emergency (ER) | payer OTHER ==
[~2020-04-29] VITALS: Ht 165.1 cm; Wt 71.0 kg
[2020-04-29 07:46] LABS: HEMATOCRIT 27.4 % (37.0-47.0); HEMOGLOBIN 9.1 g/dl (12.0-16.0); IMMATURE GRANULOCYTES 0.5 % (0.0-5.0); MEAN CELL VOLUME 88.7 fL CALC (80.0-100.0); MEAN CORPUSCULAR HGB 29.4 pG CALC (26.0-32.0); MEAN CORPUSCULAR HGB CONC 33.2 g/dL CAL (32.0-36.0); NEUT# 4.22 thou/uL (2.00-7.15); RED BLOOD COUNT 3.09 mill/uL (4.20-5.60); RED CELL DISTRI WIDTH 14.8 % (11.5-15.5)
[2020-04-29 08:47] VITALS: BP 183/81
== END 2020-04-29 08:55 | disposition home or self-care (01) ==
LOC: ED 06:50
PROVIDERS: Emergency Medicine
DX: D64.9 Anemia, unspecified (principal); E11.22 Type 2 diabetes mellitus with diabetic chronic kidney disease; I12.0 Hypertensive chronic kidney disease with stage 5 chronic kidney disease or end stage renal disease; N18.6 End stage renal disease; F17.200 Nicotine dependence, unspecified, uncomplicated; Z99.2 Dependence on renal dialysis; Z95.5 Presence of coronary angioplasty implant and graft

== ENCOUNTER 2020-05-02 17:04 | Emergency (ER) | payer OTHER ==
[~2020-05-02] VITALS: Ht 165.1 cm; Wt 71.0 kg
[2020-05-02 17:31] VITALS: BP 206/88
== END 2020-05-02 17:46 | disposition home or self-care (01) ==
LOC: ED 17:04
DX: I12.0 Hypertensive chronic kidney disease with stage 5 chronic kidney disease or end stage renal disease (principal); E11.22 Type 2 diabetes mellitus with diabetic chronic kidney disease; N18.6 End stage renal disease; Z99.2 Dependence on renal dialysis; Z95.5 Presence of coronary angioplasty implant and graft; F17.200 Nicotine dependence, unspecified, uncomplicated

== ENCOUNTER 2020-07-28 12:46 | Emergency (ER) | payer OTHER ==
[~2020-07-28] VITALS: Ht 165.1 cm; Wt 71.0 kg
[2020-07-28 14:35] LABS: URINE BILIRUBIN - DIPSTICK NEGATIVE (NEGATIVE); URINE BLOOD DIPSTICK NEGATIVE (NEGATIVE); URINE COLOR YELLOW; URINE GLUCOSE - DIPSTICK NEGATIVE (NEGATIVE); URINE KETONE NEGATIVE (NEGATIVE); URINE NITRITE - DIPSTICK NEGATIVE (Negative); URINE PH 8.5 (4.5-8.0); URINE PROTEIN - DIPSTICK >=300 mg/dL (NEG-TRACE); URINE SPECIFIC GRAVITY 1.015; URINE UROBILINOGEN - DIPSTICK 0.2 E.U./dL (0.2)
[2020-07-28 14:40] LABS: URINE LEUK ESTERASE MODERATE (NEGATIVE)
[2020-07-28 14:54] LABS: URINE SQUAMOUS EPITHELIAL CELL MODERATE EPI/hpf (0-FEW)
[2020-07-28] MEDS ORDERED: KEFLEX500 M1 PO (15:13)
[2020-07-28 16:06] VITALS: BP 183/88
--- NOTE | 2020-07-29 11:22 | NUR ---
PT SEEN IN ED YESTERDAY AND TESTED POSITIVE FOR COVID-19. RECEIVED VERBAL ORDER FROM DR MARTINEZ TO INITIATE MONOCLONAL ANTIBODY CONSULT. LEFT MESSAGE FOR PT TO RETURN CALL TO PHARMACY DEPARTMENT.
== END 2020-07-28 16:32 | disposition home or self-care (01) ==
LOC: ED 12:46
PROVIDERS: Student in an Organized Health Care Education/Training Program
DX: U07.1 COVID-19 (principal); N39.0 Urinary tract infection, site not specified; I10 Essential (primary) hypertension; E11.9 Type 2 diabetes mellitus without complications; K74.60 Unspecified cirrhosis of liver; F32.9 Major depressive disorder, single episode, unspecified; F17.200 Nicotine dependence, unspecified, uncomplicated; Z95.5 Presence of coronary angioplasty implant and graft

== ENCOUNTER 2020-08-22 23:43 | Emergency (ER) | payer OTHER ==
[~2020-08-22] VITALS: Ht 165.1 cm; Wt 71.0 kg
[~2020-08-22 23:43] MED LIST changes: +KEFLEX500 M1 PO
[2020-08-23 01:06] LABS: HEMATOCRIT 32.8 % (37.0-47.0); IMMATURE GRANULOCYTES 0.6 % (0.0-5.0); MEAN CELL VOLUME 83.9 fL CALC (80.0-100.0); MEAN CORPUSCULAR HGB 28.1 pG CALC (26.0-32.0); MEAN CORPUSCULAR HGB CONC 33.5 g/dL CAL (32.0-36.0); NEUT# 10.56 thou/uL (2.00-7.15); RED BLOOD COUNT 3.91 mill/uL (4.20-5.60); RED CELL DISTRI WIDTH 15.4 % (11.5-15.5)
[2020-08-23 01:17] LABS: ALBUMIN 4.5 g/dL (3.2-5.0); BILIRUBIN, TOTAL 0.7 mg/dL (0.0-1.4); POTASSIUM 3.9 mmol/l (3.5-5.1)
[2020-08-23 01:20] LABS: CREATININE 3.9 mg/dL (0.5-1.0)
--- NOTE | 2020-08-23 01:35 | NUR ---
BREATHING TREATMENT GIVEN.
[2020-08-23 03:06] VITALS: BP 175/79
== END 2020-08-23 03:06 | disposition short-term general hospital (02) ==
LOC: ED 23:43
PROVIDERS: Family Medicine
DX: I12.0 Hypertensive chronic kidney disease with stage 5 chronic kidney disease or end stage renal disease (principal); E11.22 Type 2 diabetes mellitus with diabetic chronic kidney disease; N18.6 End stage renal disease; J81.1 Chronic pulmonary edema; M10.9 Gout, unspecified; K74.60 Unspecified cirrhosis of liver; F32.9 Major depressive disorder, single episode, unspecified; F17.200 Nicotine dependence, unspecified, uncomplicated; Z99.2 Dependence on renal dialysis; Z95.5 Presence of coronary angioplasty implant and graft; Z86.16 Personal history of COVID-19

== ENCOUNTER 2020-10-02 07:22 | Emergency (ER) | payer OTHER ==
[2020-10-02 07:52] LABS: IMMATURE GRANULOCYTES 0.4 % (0.0-5.0); MEAN CORPUSCULAR HGB 30.1 pG CALC (26.0-32.0); MEAN CORPUSCULAR HGB CONC 32.9 g/dL CAL (32.0-36.0); NEUT# 7.23 thou/uL (2.00-7.15); RED BLOOD COUNT 1.83 mill/uL (4.20-5.60); RED CELL DISTRI WIDTH 18.1 % (11.5-15.5)
[2020-10-02 08:02] LABS: HEMATOCRIT 16.7 % (37.0-47.0); HEMOGLOBIN 5.5 g/dl (12.0-16.0); MEAN CELL VOLUME 91.3 fL CALC (80.0-100.0)
[2020-10-02 08:19] LABS: URINE BILIRUBIN - DIPSTICK NEGATIVE (NEGATIVE); URINE BLOOD DIPSTICK NEGATIVE (NEGATIVE); URINE COLOR YELLOW; URINE GLUCOSE - DIPSTICK NEGATIVE (NEGATIVE); URINE KETONE NEGATIVE (NEGATIVE); URINE PROTEIN - DIPSTICK 100 mg/dL (NEG-TRACE); URINE UROBILINOGEN - DIPSTICK 0.2 E.U./dL (0.2)
[2020-10-02 08:20] LABS: BILIRUBIN, TOTAL 0.6 mg/dL (0.0-1.4); CREATININE 4.8 mg/dL (0.5-1.0); MAGNESIUM 2.4 mg/dL (1.6-2.3); POTASSIUM 3.7 mmol/l (3.5-5.1); TOTAL PROTEIN 7.4 g/dL (6.3-8.2)
[2020-10-02 08:25] LABS: URINE LEUK ESTERASE MODERATE (NEGATIVE); URINE NITRITE - DIPSTICK NEGATIVE (Negative)
[2020-10-02 08:37] LABS: URINE SQUAMOUS EPITHELIAL CELL FEW EPI/hpf (0-FEW)
[2020-10-02 11:38] VITALS: BP 128/54
== END 2020-10-02 10:56 | disposition short-term general hospital (02) ==
LOC: ED 07:22
PROVIDERS: Family Medicine
DX: D64.9 Anemia, unspecified (principal); N39.0 Urinary tract infection, site not specified; M54.2 Cervicalgia; I12.0 Hypertensive chronic kidney disease with stage 5 chronic kidney disease or end stage renal disease; E11.22 Type 2 diabetes mellitus with diabetic chronic kidney disease; N18.6 End stage renal disease; M10.9 Gout, unspecified; F32.9 Major depressive disorder, single episode, unspecified; K74.60 Unspecified cirrhosis of liver; F17.200 Nicotine dependence, unspecified, uncomplicated; W19.XXXA Unspecified fall, initial encounter; Z99.2 Dependence on renal dialysis; Z95.5 Presence of coronary angioplasty implant and graft; Z20.822 Contact with and (suspected) exposure to COVID-19
CPT/HCPCS: P9016; S0164

== ENCOUNTER 2020-11-22 15:51 | Emergency (ER) | payer OTHER ==
[~2020-11-22] VITALS: Ht 165.1 cm; Wt 85.0 kg
[2020-11-22 18:40] LABS: IMMATURE GRANULOCYTES 0.4 % (0.0-5.0); MEAN CELL VOLUME 89.9 fL CALC (80.0-100.0); MEAN CORPUSCULAR HGB 29.7 pG CALC (26.0-32.0); MEAN CORPUSCULAR HGB CONC 33.1 g/dL CAL (32.0-36.0); NEUT# 4.06 thou/uL (2.00-7.15); RED BLOOD COUNT 2.86 mill/uL (4.20-5.60); RED CELL DISTRI WIDTH 14.5 % (11.5-15.5)
[2020-11-22 18:41] LABS: HEMATOCRIT 25.7 % (37.0-47.0); HEMOGLOBIN 8.5 g/dl (12.0-16.0)
[2020-11-22 18:53] LABS: ALBUMIN 4.4 g/dL (3.2-5.0); BILIRUBIN, TOTAL 0.7 mg/dL (0.0-1.4)
[2020-11-22 18:59] LABS: TOTAL PROTEIN 9.2 g/dL (6.3-8.2)
[2020-11-22 19:00] LABS: CREATININE 6.1 mg/dL (0.5-1.0); POTASSIUM 5.4 mmol/l (3.5-5.1)
[2020-11-22 21:51] VITALS: BP 187/89
== END 2020-11-22 21:42 ==
LOC: ED 15:51
PROVIDERS: Emergency Medicine
DX: E87.70 Fluid overload, unspecified (principal); E11.22 Type 2 diabetes mellitus with diabetic chronic kidney disease; I12.0 Hypertensive chronic kidney disease with stage 5 chronic kidney disease or end stage renal disease; N18.6 End stage renal disease; M10.9 Gout, unspecified; K74.60 Unspecified cirrhosis of liver; F17.200 Nicotine dependence, unspecified, uncomplicated; F32.9 Major depressive disorder, single episode, unspecified; Z99.2 Dependence on renal dialysis; Z91.15 Patient's noncompliance with renal dialysis; Z95.5 Presence of coronary angioplasty implant and graft

== ENCOUNTER 2021-04-26 11:45 | Emergency (ER) | payer OTHER ==
[~2021-04-26] VITALS: Ht 165.1 cm; Wt 82.0 kg
[2021-04-26] MEDS ORDERED: FLEXERIL5 M1 PO (13:42)
[2021-04-26 14:00] VITALS: BP 161/82
== END 2021-04-26 14:00 | disposition left against medical advice (07) | DRG 551 ==
LOC: ED 11:45
DX: M54.2 Cervicalgia (principal); N18.6 End stage renal disease; I12.0 Hypertensive chronic kidney disease with stage 5 chronic kidney disease or end stage renal disease; M54.50 Low back pain, unspecified; E11.22 Type 2 diabetes mellitus with diabetic chronic kidney disease; F32.A Depression, unspecified; K74.60 Unspecified cirrhosis of liver; F17.200 Nicotine dependence, unspecified, uncomplicated; Z99.2 Dependence on renal dialysis; Z95.5 Presence of coronary angioplasty implant and graft; V59.50XA Passenger in pick-up truck or van injured in collision with unspecified motor vehicles in traffic accident, initial encounter; Z91.19 Patient's noncompliance with other medical treatment and regimen

== ENCOUNTER 2021-11-15 19:46 | Observation (INO) | payer MEDICARE, OTHER ==
[~2021-11-15] VITALS: Ht 165.1 cm; Wt 71.0 kg
[~2021-11-15 19:46] MED LIST changes: +FLEXERIL5 M1 PO; -HYDRALAZINE HC100 MG PO
[2021-11-15 20:37] LABS: URINE BILIRUBIN - DIPSTICK NEGATIVE (NEGATIVE); URINE BLOOD DIPSTICK TRACE-INTACT (NEGATIVE); URINE COLOR YELLOW; URINE GLUCOSE - DIPSTICK NEGATIVE (NEGATIVE); URINE KETONE NEGATIVE (NEGATIVE); URINE PH 8.5 (4.5-8.0); URINE PROTEIN - DIPSTICK 100 mg/dL (NEG-TRACE); URINE UROBILINOGEN - DIPSTICK 0.2 E.U./dL (0.2)
[2021-11-15 20:37] LABS: HEMATOCRIT 31.6 % (37.0-47.0); IMMATURE GRANULOCYTES 0.3 % (0.0-5.0); MEAN CELL VOLUME 88.8 fL CALC (80.0-100.0); MEAN CORPUSCULAR HGB 30.9 pG CALC (26.0-32.0); MEAN CORPUSCULAR HGB CONC 34.8 g/dL CAL (32.0-36.0); NEUT# 7.55 thou/uL (2.00-7.15); RED BLOOD COUNT 3.56 mill/uL (4.20-5.60); RED CELL DISTRI WIDTH 14.6 % (11.5-15.5)
[2021-11-15 20:41] LABS: URINE LEUK ESTERASE SMALL (NEGATIVE); URINE NITRITE - DIPSTICK NEGATIVE (Negative)
[2021-11-15 20:49] LABS: URINE SQUAMOUS EPITHELIAL CELL MANY EPI/hpf (0-FEW)
[2021-11-15 20:53] LABS: ALBUMIN 4.4 g/dL (3.2-5.0); PROTHROMBIN TIME 10.7 SECONDS (9.0-12.5); TOTAL PROTEIN 8.9 g/dL (6.3-8.2)
[2021-11-15 20:59] LABS: BILIRUBIN, TOTAL 1.4 mg/dL (0.0-1.4); POTASSIUM 5.3 mmol/l (3.5-5.1)
[2021-11-15 22:06] VITALS: BP 171/64
[2021-11-16] VITALS (9 sets, daily range): BP systolic 108–207; BP diastolic 49–71
[2021-11-16 05:22] LABS: HEMATOCRIT 27.7 % (37.0-47.0); HEMOGLOBIN 9.5 g/dl (12.0-16.0); MEAN CELL VOLUME 89.4 fL CALC (80.0-100.0); MEAN CORPUSCULAR HGB 30.6 pG CALC (26.0-32.0); MEAN CORPUSCULAR HGB CONC 34.3 g/dL CAL (32.0-36.0); RED BLOOD COUNT 3.1 mill/uL (4.20-5.60); RED CELL DISTRI WIDTH 14.4 % (11.5-15.5)
[2021-11-16 05:43] LABS: MAGNESIUM 2.4 mg/dL (1.6-2.3); POTASSIUM 4.7 mmol/l (3.5-5.1)
[2021-11-16] MEDS ORDERED: ALBUTEROL108 MCG/AC IN (12:16)
[2021-11-16] MEDS ORDERED: CELEBREX200 M1 PO (12:20)
[2021-11-16] MEDS ORDERED: LORTAB 1010 MG PO (12:21)
[2021-11-16] MEDS ORDERED: ZESTRIL40 MG PO (12:43)
[2021-11-17 00:13] VITALS: BP 122/64
[2021-11-17 04:17] VITALS: BP 154/55
[2021-11-17 05:04] LABS: HEMATOCRIT 27.6 % (37.0-47.0); HEMOGLOBIN 9.5 g/dl (12.0-16.0); IMMATURE GRANULOCYTES 0.2 % (0.0-5.0); MEAN CELL VOLUME 88.5 fL CALC (80.0-100.0); MEAN CORPUSCULAR HGB 30.4 pG CALC (26.0-32.0); MEAN CORPUSCULAR HGB CONC 34.4 g/dL CAL (32.0-36.0); NEUT# 2.86 thou/uL (2.00-7.15); RED BLOOD COUNT 3.12 mill/uL (4.20-5.60); RED CELL DISTRI WIDTH 14.2 % (11.5-15.5)
[2021-11-17 05:28] LABS: ALBUMIN 3.7 g/dL (3.2-5.0); MAGNESIUM 2.1 mg/dL (1.6-2.3); POTASSIUM 3.9 mmol/l (3.5-5.1); TOTAL PROTEIN 7.3 g/dL (6.3-8.2)
[2021-11-17 05:29] LABS: BILIRUBIN, TOTAL 0.6 mg/dL (0.0-1.4)
[2021-11-17 07:24] VITALS: BP 167/60
[2021-11-17 07:26] VITALS: BP 167/60
[2021-11-17 08:10] VITALS: BP 167/60
[2021-11-17] MEDS ORDERED: AMOX/K CLAV875 M1 PO (09:37)
[2021-11-17] MEDS ORDERED: ZITHROMAX250 MG PO (09:38)
== END 2021-11-17 10:29 | disposition home or self-care (01) ==
LOC: ED 19:46 → ED-I 21:07 → MS2 21:25 → ED 21:25 → MS2 21:25
PROVIDERS: Nurse Practitioner; ADMIT Hospitalist; ATTEND Hospitalist
PROC: 5A1D70Z Performance of Urinary Filtration, Intermittent, Less than 6 Hours Per Day (ICD-10-PCS; principal; 2021-11-16)
DX: I12.0 Hypertensive chronic kidney disease with stage 5 chronic kidney disease or end stage renal disease (principal); E11.22 Type 2 diabetes mellitus with diabetic chronic kidney disease; N18.6 End stage renal disease; J18.9 Pneumonia, unspecified organism; Z99.2 Dependence on renal dialysis; R09.02 Hypoxemia; E87.5 Hyperkalemia; D63.1 Anemia in chronic kidney disease; I25.10 Atherosclerotic heart disease of native coronary artery without angina pectoris; F10.10 Alcohol abuse, uncomplicated; N25.81 Secondary hyperparathyroidism of renal origin; M10.9 Gout, unspecified; K74.60 Unspecified cirrhosis of liver; F32.A Depression, unspecified; B19.20 Unspecified viral hepatitis C without hepatic coma; F17.200 Nicotine dependence, unspecified, uncomplicated; Z95.5 Presence of coronary angioplasty implant and graft; Z20.822 Contact with and (suspected) exposure to COVID-19
CPT/HCPCS: J1644

== ENCOUNTER 2022-01-30 23:40 | Inpatient (IN) | payer MEDICARE, OTHER ==
[~2022-01-30] VITALS: Ht 167.6 cm; Wt 75.0 kg
[~2022-01-30 23:40] MED LIST changes: +ALBUTEROL108 MCG/AC IN; +AMOX/K CLAV875 M1 PO; +CELEBREX200 M1 PO; +ZESTRIL40 MG PO; +ZITHROMAX250 MG PO
[2022-01-31] VITALS (17 sets, daily range): BP systolic 143–180; BP diastolic 60–121
--- NOTE | 2022-01-31 00:15 | NUR ---
PT ARRIVED VIA EMS FROM HOME WITHCOPD EXACERBATION. PT WAS PLACED ON NC AT 2L, REMAINED STABLE. ASSISTED PT WITH COMFORT TECHNIQUES, LABS DRAWN. WILL AWAIT RESULTS. WILL CONTINUE TO MONITOR.
[2022-01-31 01:12] LABS: HEMATOCRIT 24.6 % (37.0-47.0); HEMOGLOBIN 8.4 g/dl (12.0-16.0); IMMATURE GRANULOCYTES 0.5 % (0.0-5.0); MEAN CELL VOLUME 89.8 fL CALC (80.0-100.0); MEAN CORPUSCULAR HGB 30.7 pG CALC (26.0-32.0); MEAN CORPUSCULAR HGB CONC 34.1 g/dL CAL (32.0-36.0); NEUT# 5.94 thou/uL (2.00-7.15); RED BLOOD COUNT 2.74 mill/uL (4.20-5.60); RED CELL DISTRI WIDTH 14.7 % (11.5-15.5)
--- NOTE | 2022-01-31 01:24 | NUR ---
PT BEING TO SLOWLY DSAT IN MID 80'S ON 4L, PT CHANGED INTO GOWN, ASSISTED TO THE BEDPAN AND URINE COLLECTED. REPORTED TO PHYSICIAN CHANGE IN 02 STATUS, PHYSICIAN ORDERED TO BE PLACED ON BIPAP. RESPIRATORY CONTACTED AND COMPLETED. PT CURRENTLY ON 50% O2 ON BIPAP IN UPPER 90S. WILL CONTINUE TO MONITOR.
[2022-01-31 01:35] LABS: ALBUMIN 4.3 g/dL (3.2-5.0); BILIRUBIN, TOTAL 0.5 mg/dL (0.0-1.4); POTASSIUM 3.6 mmol/l (3.5-5.1); TOTAL PROTEIN 7.9 g/dL (6.3-8.2)
[2022-01-31 01:37] LABS: CREATININE 6.4 mg/dL (0.5-1.0)
[2022-01-31 02:26] LABS: URINE BILIRUBIN - DIPSTICK NEGATIVE (NEGATIVE); URINE COLOR YELLOW; URINE GLUCOSE - DIPSTICK NEGATIVE (NEGATIVE); URINE KETONE NEGATIVE (NEGATIVE); URINE PROTEIN - DIPSTICK 100 mg/dL (NEG-TRACE); URINE SPECIFIC GRAVITY 1.015; URINE UROBILINOGEN - DIPSTICK 0.2 E.U./dL (0.2)
[2022-01-31 02:35] LABS: URINE LEUK ESTERASE SMALL (NEGATIVE); URINE NITRITE - DIPSTICK NEGATIVE (Negative)
[2022-01-31 02:36] LABS: URINE BACTERIA MODERATE hpf; URINE BLOOD DIPSTICK NEGATIVE (NEGATIVE); URINE EPITHELIAL CELLS MODERATE EPI/hpf (0-FEW)
--- NOTE | 2022-01-31 03:15 | NUR ---
Reassessment of patient completed. No distress noted.
--- NOTE | 2022-01-31 03:18 | NUR ---
PT BED ASSIGNMENT AVAILABLE, WAITING FOR NOTIFICATION FROM FLOOR TO HAVE BED CLEANED. NURSING INTERNET ASSESSOR TO COME DOWN FOR TRANSFER TO FLOOR.
--- NOTE | 2022-01-31 04:53 | NUR ---
RECEIVED PATIENT FROM er ALERT AND ORIENTED X 4. ON 50% IN BIPAP . TOLERTING WELL.
--- NOTE | 2022-01-31 07:31 | NUR ---
Patient states she is just here for dialysis. Patient refusing bipap and nasal canula, on room air only at this time, patient demanding breakfast, dialysis and then discharge.
--- NOTE | 2022-01-31 09:00 | NUR ---
Patient to transfer to med/surg room 268, hand off report given to ROYAL Edge, patient awake and alert, no c/o pain or discomfort, no s/s of idstress noted, patient refuses to wear bipap or nasal canula, again states that she is just here for dialysis and then she is going home, patient had breakfast meal, consumed 100%, patient taken to med/surg by wheel chair on portable tele.
--- NOTE | 2022-01-31 09:10 | NUR ---
PT RECEIVED TO MED SURGE UNIT VIA WC. ORIENTATED PT TO ROOM. ASSESSMENT ALLOWED. IV 22G LH FLUSHED. TELE MONITOR IN PLACE, CONITNOUS MONTORING PER ED. STATES NO NEED AT THIS TIME. FALL/SAFTEY PRECAUTION IN PLACE. CALL LIGHT WITHIN REACH
[2022-01-31] MEDS ORDERED: MEDDOSEPAK PO (11:45)
--- NOTE | 2022-01-31 12:30 | NUR ---
PT TRANSPORTED VIA WC TO DIALYSIS TREATMENT.
--- NOTE | 2022-01-31 13:41 | NUR ---
DIALYSIS: PT RECEIVED ON WHEELCHAIR WITH RN, PT STABLE, ALERT, NO C/O'S, LUNGS CLEAR, NO EDEMA NOTED, HD TX CONSENT SIGNED, PT WITH AVG ON HER RT UPPER ARM WITH THRILL AND BRUIT, PT WANTS TO TAKE 2.5 HOURS, DR. JEFF NOTIFIED, PT EDUCATED ABOUT PROCEDURE, PT CANNULATED WITH 15G NEEDLES W/O PROBLEMS, TX STARTED UNDER ASEPTIC, TARGET SET TO 2 LTS BRAULIO, WILL MONITOR HER BP, PT DENIES ANY PAIN. BP-187/73, P-80, R-18, TEMP-97.7 [id number] CARTRIDGE [id number] PH-7.2 COND. ACT.-14.2 COND. EXP.-14.0 WATER TEMP-85.6
--- NOTE | 2022-01-31 16:04 | NUR ---
DIALYSIS POST: BLOOD RETURNED UNDER ASEPTIC TECHNIQUES, . PT WANTED TO COME OFF 10 MINS LEFT, PT WITH CRAMPS IN THE END OF TX, 1.7 LTS REMOVED, PT STABLE, ALERT, NO C/O'S, DENIES ANY PAIN, VSS, BP-183/74, P-76, R-19, TEMP-97.5, LUNGS CLEAR, PT TRANFERED BACK TO HER ROOM ON WHEELCHAIR. REPORT GIVEN TO HER PRIMARY RN.
--- NOTE | 2022-01-31 16:54 | NUR ---
Discharge instructions given. Patient verbalizes understanding of same. Discharged in stable condition via Wheelchair to Home with staff. All belongings sent with pt.
== END 2022-01-31 17:54 | disposition home or self-care (01) | DRG 291 ==
LOC: ED 23:40 → ED-I 01-31 02:40 → ED 01-31 03:06 → ICU 01-31 03:07 → MS2 01-31 09:21
PROVIDERS: Emergency Medicine; ADMIT Internal Medicine; ATTEND Internal Medicine
PROC: 5A09357 Assistance with Respiratory Ventilation, Less than 24 Consecutive Hours, Continuous Positive Airway Pressure (ICD-10-PCS; principal; 2022-01-31)
PROC: 5A1D70Z Performance of Urinary Filtration, Intermittent, Less than 6 Hours Per Day (ICD-10-PCS; 2022-01-31)
DX: I13.2 Hypertensive heart and chronic kidney disease with heart failure and with stage 5 chronic kidney disease, or end stage renal disease (principal); N18.6 End stage renal disease; J96.01 Acute respiratory failure with hypoxia; J44.1 Chronic obstructive pulmonary disease with (acute) exacerbation; N25.81 Secondary hyperparathyroidism of renal origin; I50.9 Heart failure, unspecified; E11.22 Type 2 diabetes mellitus with diabetic chronic kidney disease; D63.1 Anemia in chronic kidney disease; E87.5 Hyperkalemia; B19.20 Unspecified viral hepatitis C without hepatic coma; Z99.2 Dependence on renal dialysis; Z95.5 Presence of coronary angioplasty implant and graft; Z95.828 Presence of other vascular implants and grafts; Z20.822 Contact with and (suspected) exposure to COVID-19

== ENCOUNTER 2022-08-28 10:25 | Emergency (ER) | payer MEDICARE, MEDICAID ==
[~2022-08-28] VITALS: Ht 167.6 cm; Wt 70.3 kg
[~2022-08-28 10:25] MED LIST changes: +MEDDOSEPAK PO
[2022-08-28] MEDS ORDERED: OXYCODONE10 M1 PO (11:58)
[2022-08-28 12:55] VITALS: BP 182/78
[2022-08-28 13:00] VITALS: BP 203/81
[2022-08-28 13:19] VITALS: BP 174/73
[2022-08-28 13:30] VITALS: BP 181/72
[2022-08-28 13:45] VITALS: BP 181/71
[2022-08-28 14:19] VITALS: BP 181/71
== END 2022-08-28 14:56 | disposition home or self-care (01) ==
LOC: ED 10:25
DX: S90.02XA Contusion of left ankle, initial encounter (principal); M10.9 Gout, unspecified; F32.A Depression, unspecified; E11.22 Type 2 diabetes mellitus with diabetic chronic kidney disease; I12.0 Hypertensive chronic kidney disease with stage 5 chronic kidney disease or end stage renal disease; N18.6 End stage renal disease; Z99.2 Dependence on renal dialysis; F17.210 Nicotine dependence, cigarettes, uncomplicated; W22.8XXA Striking against or struck by other objects, initial encounter; Z95.5 Presence of coronary angioplasty implant and graft; Z95.828 Presence of other vascular implants and grafts

== ENCOUNTER 2022-10-12 06:31 | Observation (INO) | payer MEDICARE, MEDICAID ==
[2022-10-12] VITALS (107 sets, daily range): BP systolic 120–218; BP diastolic 49–117
[~2022-10-12] VITALS: Ht 167.6 cm; Wt 64.0 kg
[~2022-10-12 06:31] MED LIST changes: +OXYCODONE10 M1 PO
[2022-10-12 07:12] LABS: BASO% 0.4 % (0-3); EOS% 2.2 % (0-8); HEMATOCRIT 36.2 % (37.0-47.0); HEMOGLOBIN 12.3 g/dl (12.0-16.0); IMMATURE GRANULOCYTES 0.2 % (0.0-5.0); LYMPH% 7.7 % (15-41); MEAN CELL VOLUME 84.4 fL CALC (80.0-100.0); MEAN CORPUSCULAR HGB 28.7 pG CALC (26.0-32.0); MONO% 8.6 % (2-13); NEUT# 6.68 thou/uL (2.00-7.15); NEUT% 80.9 % (42-76); RED BLOOD COUNT 4.29 mill/uL (4.20-5.60); RED CELL DISTRI WIDTH 17.6 % (11.5-15.5)
[2022-10-12 07:26] LABS: ALBUMIN 4.9 g/dL (3.2-5.0); POTASSIUM 4.1 mmol/l (3.5-5.1); TOTAL PROTEIN 8.8 g/dL (6.3-8.2)
[2022-10-12 07:29] LABS: ACT PARTIAL THROMBO TIME 26.8 SECONDS (20.0-32.5); PROTHROMBIN TIME 12.6 SECONDS (9.0-12.5)
[2022-10-12 07:30] LABS: INTERNATIONAL NORMALIZED RATIO 1.3 RATIO (0.7-1.3)
[2022-10-13] VITALS (46 sets, daily range): BP systolic 111–187; BP diastolic 51–86
[2022-10-13 00:40] LABS: URINE BILIRUBIN - DIPSTICK NEGATIVE (NEGATIVE); URINE BLOOD DIPSTICK SMALL (NEGATIVE); URINE COLOR YELLOW; URINE GLUCOSE - DIPSTICK NEGATIVE (NEGATIVE); URINE KETONE NEGATIVE (NEGATIVE); URINE PH 8.5 (4.5-8.0); URINE PROTEIN - DIPSTICK >=300 mg/dL (NEG-TRACE); URINE UROBILINOGEN - DIPSTICK 0.2 E.U./dL (0.2)
[2022-10-13 00:41] LABS: URINE LEUK ESTERASE MODERATE (NEGATIVE); URINE NITRITE - DIPSTICK NEGATIVE (Negative)
[2022-10-13 00:44] LABS: URINE BACTERIA MANY hpf; URINE SQUAMOUS EPITHELIAL CELL FEW EPI/hpf (0-FEW); URINE WBC 20-50 WBC/hpf (0-5)
[2022-10-13 05:35] LABS: HEMATOCRIT 31.4 % (37.0-47.0); HEMOGLOBIN 10.7 g/dl (12.0-16.0); MEAN CELL VOLUME 84.4 fL CALC (80.0-100.0); MEAN CORPUSCULAR HGB 28.8 pG CALC (26.0-32.0); MEAN CORPUSCULAR HGB CONC 34.1 g/dL CAL (32.0-36.0); RED BLOOD COUNT 3.72 mill/uL (4.20-5.60); RED CELL DISTRI WIDTH 17.5 % (11.5-15.5)
[2022-10-13 06:02] LABS: ALBUMIN 4.3 g/dL (3.2-5.0); BILIRUBIN, TOTAL 0.6 mg/dL (0.02-1.3); CREATININE 4.4 mg/dL (0.5-1.0); POTASSIUM 3.7 mmol/l (3.5-5.1); TOTAL PROTEIN 7.4 g/dL (6.3-8.2)
[2022-10-13] MEDS ORDERED: COZAAR50 MG PO (08:35)
== END 2022-10-13 12:38 ==
LOC: ED 06:31 → ED-I 08:50 → ED 09:01 → ICU 09:02
PROVIDERS: Family Medicine; ADMIT Internal Medicine; ATTEND Internal Medicine
PROC: 5A1D70Z Performance of Urinary Filtration, Intermittent, Less than 6 Hours Per Day (ICD-10-PCS; principal; 2022-10-12)
DX: I16.0 Hypertensive urgency (principal); I12.0 Hypertensive chronic kidney disease with stage 5 chronic kidney disease or end stage renal disease; E11.22 Type 2 diabetes mellitus with diabetic chronic kidney disease; N18.6 End stage renal disease; D63.1 Anemia in chronic kidney disease; N25.81 Secondary hyperparathyroidism of renal origin; E87.79 Other fluid overload; Z99.2 Dependence on renal dialysis; E11.40 Type 2 diabetes mellitus with diabetic neuropathy, unspecified; M10.9 Gout, unspecified; F32.A Depression, unspecified; K74.60 Unspecified cirrhosis of liver; F17.210 Nicotine dependence, cigarettes, uncomplicated; B19.20 Unspecified viral hepatitis C without hepatic coma; Z91.15 Patient's noncompliance with renal dialysis; Z95.828 Presence of other vascular implants and grafts; Z95.5 Presence of coronary angioplasty implant and graft; Z20.822 Contact with and (suspected) exposure to COVID-19
CPT/HCPCS: J1644